=== PATIENT | male | born 1955 | race Caucasian/White ===

== ENCOUNTER 2023-05-30 10:23 | Inpatient (IN) | payer MEDICARE, SELFPAY ==
--- NOTE | ~2023-05-30 | XR_ITS ---
EXAMINATION: XR CHEST CLINICAL INFORMATION: Chest pain COMPARISON: 10/14/2012, report only. TECHNIQUE: Frontal view of the chest was obtained. FINDINGS: No significant abnormality is noted involving the heart, lungs, mediastinum or soft tissues. There is been resection of the distal right clavicle. Old healed fracture left mid clavicle. Degenerative changes are present in the right shoulder. Median sternotomy and clips from a CABG are present. ACDF hardware noted in the lower cervical spine with surgical clips in the left neck. XR/XR chest 1V IMPRESSION: No acute intrathoracic disease. Incidental findings as described above.
--- NOTE | ~2023-05-30 | CT_ITS ---
EXAMINATION: CT ANGIOGRAM OF THE CHEST WITH AND WITHOUT CONTRAST (CT PULMONARY ANGIOGRAM FOR PE) CLINICAL INFORMATION: Reason for Exam elevated ddimer pleuritic chest pain COMPARISON: Chest radiograph earlier today TECHNIQUE: Prior to contrast administration, noncontrast localization images were obtained. Subsequently, multidetector volumetric imaging was performed from the thoracic inlet to below the diaphragms following the administration of 65 mL Omnipaque 350 intravenous contrast. No contrast reaction reported Sagittal, coronal, and MIP oblique sagittal reformatted images were obtained on the CT workstation, uploaded to PACS, and reviewed. This CT examination was performed using dose optimization techniques as appropriate, variously including the following: *Automated exposure control *Adjustment of mA and/or kV according to patient size (this includes techniques or standardized protocols for targeted exams where dose is matched to indication/reason for exam; i.e. extremities or head) *Use of iterative reconstruction technique Total exam dose-length product 354 mGy-cm FINDINGS: QUALITY OF STUDY/CONTRAST BOLUS: Satisfactory. PULMONARY ARTERIES: No pulmonary emboli. THORACIC AORTA: No aneurysm. LUNG: There is marked peribronchial thickening present most prominent at the lung bases (for example see right lung base 7:283-336). No focal consolidation with air bronchograms, concerning nodules or masses. 2 and 3 mm lung nodules are present right middle lobe (7:242 and 255). Mild dependent groundglass changes are seen in both lungs. PLEURA: No pleural effusion or pneumothorax. MEDIASTINUM: Normal heart size. That is post median sternotomy and CABG. No pericardial effusion. No hilar or mediastinal lymphadenopathy. No evidence of septal bowing or right heart strain. CORONARY ARTERY CALCIFICATION: Extensive CHEST WALL/AXILLA: No axillary or internal mammary lymphadenopathy. OSSEOUS STRUCTURES: No acute or suspicious osseous abnormality. UPPER ABDOMEN: Unremarkable. No reflux of contrast into the hepatic veins to suggest elevated right heart pressures. CT/CT angio chest PE protocol IMPRESSION: 1. No evidence of pulmonary emboli. 2. Marked peribronchial thickening most prominent at the lung bases. 3. 2 and 3 mm lung nodules right middle lobe. No follow-up needed. VTE: negative. According to the UPDATED 2017 Fleischner Society recommendations, the advised follow-up imaging for solid nodules <6 mm in the middle/lower lobes is no routine follow up.
--- NOTE | 2023-05-30 10:30 | ECG_ITS ---
Test Reason : CHEST PAIN Blood Pressure : / mmHG Vent. Rate : 049 BPM Atrial Rate : 049 BPM P-R Int : 166 ms QRS Dur : 098 ms QT Int : 484 ms P-R-T Axes : 043 031 039 degrees QTc Int : 437 ms Sinus bradycardia Cannot rule out Anterior infarct , age undetermined Abnormal ECG When compared with ECG of 25-MAY-2013 13:24, Vent. rate has decreased BY 25 BPM Nonspecific T wave abnormality has replaced inverted T waves in Inferior leads Referred By: Nola Gar Electronically Signed By:BRISSA TREVIÑO
[2023-05-30 10:31] VITALS: BP 156/92; PULSE 58; O2SAT 98
--- NOTE | 2023-05-30 10:53 | ED.PSYCH ---
HPI - Psych General Chief Complaint: Chest Pain Stated Complaint: CP ETOH WITHDRAWAL Time Seen by Provider: 05/30/23 10:30 Source: patient, EMS and old records reviewed Mode of arrival: EMS Limitations: other (poor vague historian) History of Present Illness HPI Narrative: 67 yo male with PMH Of CAD s/p 4VCABG, valve replacement 4 months ago in [place], ETOH abuse last withdrawal seizure 2 years ago last drink yesterday, depression and prior SI attempts. States he just came here 1 week ago from [place] to see petr he has not seen in 14 years. He now has chest pain starting 1 hour ago sharp central and feels anxiety and ETOH withdrawal. He has not taken his medications in 1 week since he ran out but then states he overdosed on clonidine and buspirone unknown amounts 2 days ago which doesn't make sense if he ran out. He states he has ETOH withdrawal and SI. He has pain in his lung because he has a lung nodule and is scared of lung cancer. MD complaint: suicidal ideation, feels depressed, anxiety, alcohol abuse and other (chest pain) Onset (ago): day(s) (2 days for mental health but then chest pain x 1 hour) Duration: constant History of same: Yes Relieving factors: none Exacerbating factors: other Context: recent alcohol abuse and significant life stressor Associated psychiatric symptoms: depression and suicidal ideation Associated symptoms: denies other symptoms If self harm: admits thoughts of self harm, has plan, has acted on plan and intentional overdose Related Data Allergies Allergy/AdvReac Type Severity Reaction Status Date / Time No Known Allergies Allergy Verified 05/30/23 11:36 Review of Systems Review of Systems: Constitutional : No Weight loss, No Fever, No Chills ENT/Mouth : No sore throat, No Rhinorrhea Eyes: No Eye Pain, No Swelling Cardiovascular : pos Chest Pain, no SOB, no Dyspnea on Exertion, No Orthopnea, No Edema, No Palpitations Respiratory : No Cough, No Sputum Gastrointestinal : no Nausea, No Vomiting, No Diarrhea, No abdominal Pain, No Hematochezia, No Melena Genitourinary : No Dysuria, No Urinary Frequency Musculoskeletal : No joint pain, No Myalgias, No Joint Swelling Skin : No Skin Lesions, No rash Neuro : No Weakness, No Numbness, No Dizziness, No Headache Psych : pos Anxiety/Panic, pos Depression, pos SI Heme/Lymph: No Bruising, No Lymphadenopathy Endocrine : No Polyuria, No Polydipsia All other systems reviewed and are negative [facility], [facility] Past Medical History Attestation statement: The following information was validated with the patient. Medical History (Updated 05/30/23 @ 15:20 by Nola Gar DO) Depression CAD (coronary artery disease) Surgical History (Updated 05/30/23 @ 11:13 by Nola Gar DO) Heart valve replaced S/P CABG x 4 Social History Social History (Updated 05/30/23 @ 11:13 by Nola Gar DO) Alcohol intake: current Alcohol type: hard liquor Patient Tobacco Use Status: Current everyday Tobacco user Smoked in Last 30 Days: Yes Use of substances other than those prescribed or required for medical reasons: Yes Substance Use Type: Marijuana Advance Directives: No Advance Directives Information Provided: No Physical Exam Vital Signs: Vital Signs: Last Vital Signs Temp 98.3 F 05/30/23 15:11 Pulse 59 05/30/23 15:11 Resp 16 05/30/23 15:11 BP 116/59 L 05/30/23 15:11 Pulse Ox 92 05/30/23 15:11 O2 Del Method Room Air 05/30/23 15:11 BMI result Body Mass Index 27.4 Appearance: Alert. Oriented X3. No acute distress. Eyes: Pupils equal, round and reactive to light. ENT: Pharynx normal. tongue fasciculations noted Neck: Normal inspection. Neck supple. CVS: Normal heart rate and rhythm. Pulses normal. Respiratory: No respiratory distress. Breath sounds normal. Abdomen: Soft and nontender. Skin: Skin warm and dry. Normal skin color. Normal skin turgor. Extremities: No lower extremity edema. No calf ttp Neuro: Oriented X 3. No motor deficit. No sensory deficit. Cn2-12 intact. tremors of both hands noted Course Course Course Narrative: per outside records had CABGx 3, bioprosthetic AVR - december 2022 had extensive substance abuse and ETOH history exhibiting no signs of withdrawal. Medications Administered Discontinued Medications Generic Name Dose Route Start Last Admin Trade Name Freq PRN Reason Stop Dose Admin Al Hydroxide/Mg Hydroxide 15 ml 05/30/23 12:12 05/30/23 12:30 Magnesium Hydrox/Alum Hydrox 30 Ml Oral.Susp PO 05/30/23 12:13 15 ml ONCE ONE Administration Guaifenesin 5 ml 05/30/23 14:05 05/30/23 14:32 Guaifenesin 100 Mg/5 Ml Liquid PO 05/30/23 14:06 5 ml ONCE ONE Administration Magnesium Sulfate 2 gm in 50 mls @ 25 mls/hr 05/30/23 10:47 05/30/23 13:48 Magnesium Sulfate/H2o IV 05/30/23 12:46 Infused ONCE ONE Infusion Thiamine HCl 200 mg/ Sodium 102 mls @ 204 mls/hr 05/30/23 10:47 05/30/23 13:47 Chloride IV 05/30/23 11:16 Infused ONCE ONE Infusion Iohexol 100 ml 05/30/23 12:38 05/30/23 12:39 Iohexol 350 Mg/Ml 100 Ml Infus..Btl IV 05/30/23 12:39 65 ml ONCE ONE Administration Lidocaine HCl 15 ml 05/30/23 12:12 05/30/23 12:30 Lidocaine Hcl Viscous 2 % 15 Ml Solution MUCOUS MEM 05/30/23 12:13 15 ml ONCE ONE Administration Phenobarbital Sodium 246 mg 05/30/23 12:00 05/30/23 11:58 Phenobarbital Sodium 130 Mg/Ml Im Once IM 05/30/23 12:01 246 mg ONCE ONE Administration Protocol Phenobarbital Sodium 185 mg 05/30/23 15:00 05/30/23 14:33 Phenobarbital Sodium 65 Mg/Ml Vial Q3hx2 IM 05/30/23 18:01 185 mg Q3H [place] Administration Protocol Medical Decision Making Medical Decision Making MDM Narrative: 67 yo male with PMH of CAD s/p CABG, anxiety, depression with prior SI attempts, ETOH abuse last drink yesterday he has multiple complaints that are convoluted and don't necessarily make sense - he states he ran out of meds a week ago but overdosed on clonidine and buspirone 2 days ago - given 48 hours and normal VS and normal qtc / qrs on EKG will defer further workup of that. He c/o sharp chest pain - troponin x 2, ddimer, CXR ordered. He also is exhibiting ETOH wtihdrawal symtoms - I have ordered magnesium, thiamine, phenobarb protocol he had a withdrawal seizure 2 years ago he reports current SI - we are trying to contact the [facility] in [place] where he had his care Differential Diagnosis Differential Diagnoses: The differential diagnosis associated with the presentation includes chest pain, VTE, ETOH withdrawal, gastritis, pancreatitis Admission/Observation Consideration of admission/observation: Escalation of care including admission/observation considered physician observation at 317pm until he sees CARE team put on phenobarb taper two trop flat CTA negative Consult Healthcare Provider Management of the patient was discussed with: Behavioral Health Provider Lab Data [facility] Lab Attestation statement: I reviewed the patient's lab results. 05/30/23 11:29 05/30/23 11:29 Labs: Lab Results 05/30/23 05/30/23 05/30/23 Range/Units 11:29 13:10 14:38 WBC 9.0 (4.8-10.8) X10*3/uL RBC 4.96 (4.60-5.80) X10*6/uL Hgb 14.2 (14.0-18.0) g/dl Hct 42.0 (42.0-52.0) % MCV 84.7 (80.0-98.0) fL MCH 28.6 (27.0-33.0) pg MCHC 33.8 (31.0-36.0) g/dl RDW 15.5 (11.0-16.0) % Plt Count 233 (160-400) X10*3/uL MPV 9.2 L (9.4-12.4) fL Immature Gran % (Auto) 0.2 (0.0-0.4) % Neut % (Auto) 72.1 (45-73) % Lymph % (Auto) 18.8 L (20-40) % [place] % (Auto) 6.0 (2-11) % Eos % (Auto) 2.6 (0-4) % Baso % (Auto) 0.3 (0-2) % Lymph # (Auto) 1.7 (1.2-4.9) X10*3/uL [place] # (Auto) 0.5 (0.1-1.2) X10*3/uL Eos # (Auto) 0.2 (0.0-0.4) X10*3/uL Baso # (Auto) 0.0 (0.0-0.2) X10*3/uL Abs Immat Gran (auto) 0.02 (0.00-0.03) X10*3/uL Absolute Neuts (auto) 6.5 (2.0-8.3) x10*3/uL Absolute Nucleated RBC 0.000 (0.0-0.012) X10*3/uL Nucleated RBC % (auto) 0.0 (0.0-0.2) /100WBC D-Dimer High Sensitivty 489 NG/ML Sodium 138 (135-145) mmol/L Potassium 3.8 (3.3-5.1) mmol/L Chloride 103 (96-108) mmol/L Carbon Dioxide 24 (22-29) mmol/L Anion Gap 15 (12-20) BUN 15 (9-16) mg/dL Creatinine 0.83 (0.5-1.4) mg/dL Estim Creat Clear Calc 82.7 Estimated GFR > 60 Random Glucose 95 (60-115) mg/dL Calcium 9.3 (8.4-10.2) mg/dL Magnesium 1.9 (1.6-2.6) mg/dL Total Bilirubin 0.9 (0.0-1.0) mg/dL Direct Bilirubin 0.3 (0.0-0.5) mg/dL AST 42 H (5-37) U/L ALT 33 (0-40) U/L Alkaline Phosphatase 74 (39-117) U/L Troponin I High Sens 6.3 5.1 (<3.5-35.0) ng/L B-Natriuretic Peptide 271 H (<100) pg/mL Total Protein 7.2 (6.5-8.0) g/dL Albumin 3.9 (3.5-5.0) g/dL Lipase 26 (8-78) U/L Salicylates < 5.0 L (15-30) mg/dL Urine Opiates Screen Not Detected (Not Detect) Urine Fentanyl Screen Not Detected (Not Detect) Acetaminophen < 3 (<30) mcg/mL Ur Barbiturates Screen POSITIVE H (Not Detect) Ur Phencyclidine Scrn Not Detected (Not Detect) Ur Amphetamines Screen Not Detected (Not Detect) U Benzodiazepines Scrn Not Detected (Not Detect) Urine Cocaine Screen Not Detected (Not Detect) U Marijuana (THC) Screen POSITIVE H (Not Detect) Ethyl Alcohol < 10 mg/dL Influenza Type A (PCR) NEGATIVE (Negative) Influenza Type B (PCR) NEGATIVE (Negative) RSV RNA Qual (PCR) NEGATIVE (Negative) SARS-CoV-2 RNA (RT-PCR) NEGATIVE (Negative) Independent Interpretation I performed an independent interpretation of an: EKG, Plain X-Ray and CT Scan (no PE) Interpretation: Rate: 49 Rhythm: sinus bradycardia [place]: normal Normal P waves. Normal CLIVE. Normal QRS complex. ST T wave : normal no [place] qTC: 437 prior studies: no acute ischemia The study has been interpreted contemporaneously by me. . Radiology Impression Discussion of test interpretation with radiology: I have reviewed the radiologist's reading. Independent Historian Clinical information obtained from an independent historian. History obtained from or confirmed by: EMS External Record Review External record reviewed: Outpatient record Critical Care Time Critical Care Time Critical Care Time: Yes Total Critical Care Time: 60 Attestation: phenobarb protocol, repeat labs, outpatient review of labs I attest to this time spent taking care of the patient Discharge Plan Discharge Clinical Impression: Atypical chest pain, Alcohol use disorder, Suicidal ideation Patient Disposition: Still a Patient
[2023-05-30 11:22] VITALS: BP 134/76; PULSE 50; RESP 14; TEMP 36.4; O2SAT 95; BMI 27.4
[2023-05-30 11:29] VITALS: BP 134/76; PULSE 46; PULSE 47; RESP 16; TEMP 37.2; O2SAT 95
[2023-05-30 11:32] LABS: MANUAL DIFF FLAG NO
[2023-05-30 11:38] LABS: Basophils Percent Auto 0.3 % (0-2); Eosinophils Absolute Auto 0.2 X10*3/uL (0.0-0.4); Eosinophils Percent Auto 2.6 % (0-4); Hemoglobin 14.2 g/dl (14.0-18.0); Imm Gran Abs Auto 0.02 X10*3/uL (0.00-0.03); Imm Gran Pct Auto 0.2 % (0.0-0.4); Lymphocytes Absolute Auto 1.7 X10*3/uL (1.2-4.9); Lymphocytes Percent Auto 18.8 % (20-40); Mean Corpuscular HGB Conc 33.8 g/dl (31.0-36.0); Mean Corpuscular Hemoglobin 28.6 pg (27.0-33.0); Mean Corpuscular Volume 84.7 fL (80.0-98.0); Mean Platelet Volume 9.2 fL (9.4-12.4); Monocytes Absolute Auto 0.5 X10*3/uL (0.1-1.2); Neutrophils Absolute Auto 6.5 x10*3/uL (2.0-8.3); Neutrophils Percent Auto 72.1 % (45-73); Platelet Count 233 X10*3/uL (160-400); Red Blood Count 4.96 X10*6/uL (4.60-5.80); Red Cell Distribution Width 15.5 % (11.0-16.0)
[2023-05-30 11:43] LABS: D Dimer High Sensitivity 489 NG/ML
--- NOTE | 2023-05-30 11:45 | PC.NURSE ---
Pt coming from [facility] in [place] via EMS. Pt reports CP, substernal area, 09/20, sharp and constant since this morning. Pt also reports daily alcohol use, vodka, has had withdrawals in the past, denies any seizures. Pt reports sore throat and general malaise for past couple of days as well. Pt reports 2 days ago he had SI attempt, took whole bottle of BP and anti-anxiety meds and it did not work, per pt. Pt does feel SI, denies HI. 1:1 sitter at this time. Pt reports 4 months ago he had quadruple bypass and valve replacement in [place] and was also told he had a nodule on lung. Pt is alert and oriented, breathing even and unlabored, skin slightly clammy. 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 IV in place from EMS, 20G in left hand, flushes with no issues.
[2023-05-30 11:55] LABS: Acetaminophen LAB < 3 mcg/mL (<30); Alanine Aminotransferase 33 U/L (0-40); Albumin Level 3.9 g/dL (3.5-5.0); Alkaline Phosphatase 74 U/L (39-117); Anion Gap 15 (12-20); Aspartate Amino Transferase 42 U/L (5-37); B Type Natriuretic Peptide 271 pg/mL (<100); Bilirubin Direct 0.3 mg/dL (0.0-0.5); Bilirubin Total 0.9 mg/dL (0.0-1.0); Blood Urea Nitrogen 15 mg/dL (9-16); Calcium 9.3 mg/dL (8.4-10.2); Carbon Dioxide 24 mmol/L (22-29); Chloride 103 mmol/L (96-108); Creatinine Clr Calc Pharmacy 82.7; Estimated Glomerular Filt Rate > 60; Ethanol < 10 mg/dL; Glucose Random 95 mg/dL (60-115); Lipase 26 U/L (8-78); Magnesium 1.9 mg/dL (1.6-2.6); Potassium 3.8 mmol/L (3.3-5.1); Salicylate < 5.0 mg/dL (15-30); Sodium 138 mmol/L (135-145); Total Protein 7.2 g/dL (6.5-8.0); Troponin-I High Sensitivity 6.3 ng/L (<3.5-35.0)
[2023-05-30] MEDS: PHENobarbitaL sodium 130 MG/ML IM ONCE 246 MG IM (11:58)
[2023-05-30] MEDS: Magnesium Sulfate/H2O 2 GM/50 ML PIGGYBACK IV (11:59)
[2023-05-30] MEDS: Thiamine HCL 200 MG in 0.9 % Sodium Chloride 100 ML 204 MG IV (12:07)
[2023-05-30 12:13] LABS: Influenza A PCR NEGATIVE (Negative); Influenza B PCR NEGATIVE (Negative); Resp Syncy Virus RNA Qual PCR NEGATIVE (Negative); SARS COV2 PCR INHOUSE NEGATIVE (Negative)
[2023-05-30] MEDS: Magnesium Hydrox/Alum Hydrox 30 ML ORAL.SUSP 15 ML PO (12:30)
[2023-05-30] MEDS: Lidocaine HCl Viscous 2 % 15 ML SOLUTION MUCOUS MEM (12:30)
--- NOTE | 2023-05-30 12:33 | PC.NURSE ---
pt medicated per MAR
[2023-05-30] MEDS: iohexoL 350 MG/ML 100 ML INFUS..BTL IV (12:39)
[2023-05-30 13:34] LABS: Amphetamine Screen Urine Not Detected (Not Detect); Barbiturates, Urine POSITIVE (Not Detect); Benzodiazepines Screen Urine Not Detected (Not Detect); Cannabinoid Screen Urine POSITIVE (Not Detect); Cocaine Screen Urine Not Detected (Not Detect); Fentanyl, urine Not Detected (Not Detect); Opiate Screen Urine Not Detected (Not Detect); Phencyclidine Screen Urine Not Detected (Not Detect)
[2023-05-30 14:00] VITALS: BP 128/53; PULSE 50; RESP 15; TEMP 36.7; O2SAT 95
[2023-05-30] MEDS: guaiFENesin 100 MG/5 ML LIQUID PO (14:32)
[2023-05-30] MEDS: PHENobarbitaL sodium 65 MG/ML VIAL Q3Hx2 185 MG IM (14:33)
[2023-05-30 15:10] LABS: Troponin-I High Sensitivity 5.1 ng/L (<3.5-35.0)
[2023-05-30 15:11] VITALS: BP 116/59; PULSE 59; RESP 16; TEMP 36.8; O2SAT 92
[2023-05-30 17:43] LABS: IDNOW Serial# 08D9AD1C; Strep A Nucleic Acid Negative (Negative)
--- NOTE | 2023-05-30 19:50 | PC.NURSE ---
patient appears to remain at rest at present, respirations are even and unlabored patient appears in no distress, periodically lets wants be known.
--- NOTE | 2023-05-30 20:06 | MHC.CARE ---
Pt is being held on a section 12 for safety and containment while he is a dual dx bed search.
[2023-05-30] MEDS: PHENobarbitaL 15 MG TABLET 45 MG PO (20:17)
--- NOTE | 2023-05-30 20:31 | PC.NURSE ---
patient back and forth to rest room, able to make needs known, given hs meds, seems to present with mild confusion. patient maintains safe behavior.
[2023-05-30 21:00] VITALS: BP 106/51; PULSE 59; RESP 18; TEMP 36.9; O2SAT 97
[2023-05-30] MEDS: Acetaminophen 325 MG TABLET 650 MG PO (21:04)
[2023-05-31 02:30] VITALS: BP 163/63; PULSE 52; RESP 17; TEMP 36.4; O2SAT 98
--- NOTE | 2023-05-31 07:17 | PC.NURSE ---
Assumed care of patient at 0700, patient appears to be sleeping, respirations even and unlabored, no apparent distress. Continue plan of care for Sec 12 dual diagnosis bedsearch
[2023-05-31] MEDS: PHENobarbitaL 15 MG TABLET 45 MG PO ×2 (08:38→21:28)
--- NOTE | 2023-05-31 11:22 | PC.NURSE ---
updated MD Susy KYLE
[2023-05-31 16:25] VITALS: BMI 26.9
[2023-05-31 17:20] VITALS: BP 136/75; PULSE 77; RESP 18
[2023-05-31] MEDS: FLUoxetine HCl 20 MG CAPSULE 40 MG PO (17:51)
[2023-05-31] MEDS: Atorvastatin Calcium 40 MG TABLET PO (17:51)
[2023-05-31] MEDS: Naltrexone HCl 50 MG TABLET PO (17:51)
[2023-05-31] MEDS: Aspirin Enteric Coated 81 MG TABLET.DR PO (17:51)
--- NOTE | 2023-05-31 18:21 | PC.ADMIT ---
Nursing note: 67 year old male DX: Unspecified depressive disorder, Alcohol Use disorder. Referred for admission by CARE team. Signed conditional voluntary for admission. Patient called 911 due to experiencing withdrawal symptoms and feeling suicidal. Reported to EMS 2 days prior he ingested unknown amount of BP medications and anti anxiety medication in suicide attempt. Patient easily engaged, presents with good eye contact. A+O x4. Calm and cooperative with admission process. Reports mood continues depressed and anxious. Currently denies SI/HI plan or intent. Thoughts clear, linear and organized. Speech normal rate, tone, ruthie. Denies perceptual disturbances, no overt psychosis or expressed delusions. Reports difficulty with sleep, difficulty falling and maintaining sleep. Denies appetite disturbances. Skin check completed with ancillary staff DP. Reports long history of alcohol use, 50 years , drinking a fifth of vodka a day. Last use prior to admission. TOX screen positive for barbiturate, cannabis. COVID negative. Medical history includes CAD, 4VCABG, hx of gastritis, pancreatitis. Patient oriented to unit, placed on unit safety checks. CIWA q 2 hours. See nursing assessment/crisis eval for complete details.
[2023-05-31 19:50] VITALS: BP 146/57; PULSE 75; RESP 16; TEMP 36.7; O2SAT 98
[2023-05-31] MEDS: Metoprolol Tartrate 25 MG TABLET PO (21:26)
[2023-05-31] MEDS: busPIRone HCl 10 MG TABLET PO (21:26)
[2023-05-31] MEDS: Acetaminophen 325 MG TABLET 650 MG PO (21:27)
[2023-05-31] MEDS: QUEtiapine Fumarate 50 MG TABLET PO (21:29)
[2023-05-31] MEDS: Celecoxib 100 MG CAPSULE PO (21:30)
[2023-06-01 07:49] VITALS: BP 155/70; PULSE 54; RESP 14; TEMP 36.5; O2SAT 96
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
[2023-06-01 09:01] LABS: Estimated Average Glucose 123 mg/dL; Hemoglobin A1c % 5.9 % (<6.0)
[2023-06-01 09:14] LABS: Alanine Aminotransferase 29 U/L (0-40); Albumin Level 3.8 g/dL (3.5-5.0); Alkaline Phosphatase 70 U/L (39-117); Anion Gap 13 (12-20); Aspartate Amino Transferase 32 U/L (5-37); Bilirubin Total 0.4 mg/dL (0.0-1.0); Blood Urea Nitrogen 14 mg/dL (9-16); Calcium 9.1 mg/dL (8.4-10.2); Carbon Dioxide 28 mmol/L (22-29); Chloride 101 mmol/L (96-108); Cholesterol 164 mg/dL (<200); Creatinine Clr Calc Pharmacy 86.5; Estimated Glomerular Filt Rate > 60; Glucose Fasting 98 mg/dL (60-99); HDL Cholesterol 53 mg/dL (>40); LDL Cholesterol Calculated 94 mg/dL (<100); Potassium 4.9 mmol/L (3.3-5.1); Sodium 137 mmol/L (135-145); Total Protein 6.7 g/dL (6.5-8.0); Triglycerides 86 mg/dL (<150)
[2023-06-01] MEDS: Nicotine 7 MG PATCH.TD24 TRANSDERMA (09:25)
[2023-06-01] MEDS: PHENobarbitaL 15 MG TABLET 45 MG PO (09:25)
[2023-06-01] MEDS: Atorvastatin Calcium 40 MG TABLET PO (09:26)
[2023-06-01] MEDS: FLUoxetine HCl 20 MG CAPSULE 40 MG PO (09:26)
[2023-06-01] MEDS: Aspirin Enteric Coated 81 MG TABLET.DR PO (09:26)
[2023-06-01] MEDS: busPIRone HCl 10 MG TABLET PO ×3 (09:26→21:00)
[2023-06-01] MEDS: Naltrexone HCl 50 MG TABLET PO (09:26)
[2023-06-01] MEDS: Celecoxib 100 MG CAPSULE PO ×2 (09:26→21:00)
[2023-06-01] MEDS: Metoprolol Tartrate 25 MG TABLET PO ×2 (09:26→21:00)
[2023-06-01 09:30] LABS: Free T4 (Free Thyroxine) 0.93 ng/dL (0.71-1.85); Thyroid Stimulating Hormone 1.76 uIU/mL (0.32-4.0)
[2023-06-01 09:40] LABS: Vitamin B12 549 pg/mL (200-900)
[2023-06-01] MEDS: Magnesium Hydrox/Alum Hydrox 30 ML ORAL.SUSP PO (18:45)
[2023-06-01 19:45] VITALS: BP 126/69; PULSE 67; RESP 16; TEMP 36.3; O2SAT 96
[2023-06-01] MEDS: PHENobarbitaL 15 MG TABLET PO (21:00)
[2023-06-01] MEDS: QUEtiapine Fumarate 50 MG TABLET PO (21:00)
[2023-06-01] MEDS: Acetaminophen 325 MG TABLET 650 MG PO (21:13)
[2023-06-02 07:00] VITALS: BMI 28.0
[2023-06-02 07:20] VITALS: BP 142/75; PULSE 49; RESP 18; TEMP 36.7; O2SAT 96
[2023-06-02] MEDS: Naltrexone HCl 50 MG TABLET PO (08:55)
[2023-06-02] MEDS: FLUoxetine HCl 20 MG CAPSULE 40 MG PO (08:55)
[2023-06-02] MEDS: Celecoxib 100 MG CAPSULE PO ×2 (08:55→21:07)
[2023-06-02] MEDS: Atorvastatin Calcium 40 MG TABLET PO (08:55)
[2023-06-02] MEDS: Metoprolol Tartrate 25 MG TABLET PO ×2 (08:56→21:07)
[2023-06-02] MEDS: Aspirin Enteric Coated 81 MG TABLET.DR PO (08:56)
[2023-06-02] MEDS: Nicotine 7 MG PATCH.TD24 TRANSDERMA (08:56)
[2023-06-02] MEDS: busPIRone HCl 10 MG TABLET PO ×3 (08:56→21:07)
[2023-06-02] MEDS: PHENobarbitaL 15 MG TABLET PO ×2 (08:56→21:07)
--- NOTE | 2023-06-02 10:04 | HO.PSYCHPN ---
Subjective Subjective Date of Service: 06/02/23 Reason For Visit: si / etoh Subjective Notes: Conditional Voluntary Interim History: Patient describes history of depression status post recent suicide attempt history of multiple losses Patient was feeling hopeless helpless prior to admission he does state he is eager for sobriety has started naltrexone Mental Status Exam Mental Status Exam Patient Appearance: Well Grooomed Patient Orientation: Person, Place, Time and Situation Level of Consciousness: Awake and Appropriate Patient Behavior: Appropriate and Cooperative Mood Description: Depressed and Blunted Affect Description: Appropriate and Constricted Patient Cognition Impaired: No Ability to Follow Directions: Good Speech Pattern: Clear Memory Description: Intact Hallucinations: None Delusions: Not Present Thought Process: Intact and Goal Oriented Thought Content: positive for Goal Oriented, positive for Preoccupation, negative for Suicidal Ideation or negative for Homicidal Ideation Depressive Symptoms: Increased Anxiety, Increased Irritability, Hopelessness, Increased Fatigue, Loss of Energy and Difficulty Concentrating Judgement: Good Diagnostics Vital Signs (24Hr): Vital Signs - 24 hr 06/01/23 19:45 06/02/23 07:20 Temperature 97.3 F 98.0 F Pulse Rate 67 49 L Respiratory Rate 16 18 Blood Pressure 126/69 142/75 H Pulse Oximetry 96 96 Oxygen Delivery Method Room Air Room Air BMI result Body Mass Index 26.9 Labs 05/30/23 11:29 06/01/23 08:28 Labs: Laboratory Results - last 48 hr 06/01/23 08:28 Sodium 137 Potassium 4.9 D Chloride 101 Carbon Dioxide 28 Anion Gap 13 BUN 14 Creatinine 0.73 Estim Creat Clear Calc 86.5 Estimated GFR > 60 Fasting Glucose 98 Estimat Average Glucose 123 Hemoglobin A1c % 5.9 Calcium 9.1 Total Bilirubin 0.4 AST 32 ALT 29 Alkaline Phosphatase 70 Total Protein 6.7 Albumin 3.8 Triglycerides 86 Cholesterol 164 LDL Cholesterol, Calc 94 HDL Cholesterol 53 Vitamin B12 549 Folate 10.0 TSH 1.76 Free T4 0.93 Imaging Radiology Impressions: ITS Impressions Chest X-Ray 05/30/23 11:42 IMPRESSION: No acute intrathoracic disease. Incidental findings as described above. Chest CTA 05/30/23 12:37 IMPRESSION: 1. No evidence of pulmonary emboli. 2. Marked peribronchial thickening most prominent at the lung bases. 3. 2 and 3 mm lung nodules right middle lobe. No follow-up needed. VTE: negative. According to the UPDATED 2017 Fleischner Society recommendations, the advised follow-up imaging for solid nodules <6 mm in the middle/lower lobes is no routine follow up. Medications Medications Current Medications Acetaminophen (Acetaminophen 325 Mg Tablet) 650 mg PO Q6H PRN PRN Reason: Headache/Pain Mild Scale (1-3) Last Admin: 06/01/23 21:13 Dose: 650 mg Al Hydroxide/Mg Hydroxide (Magnesium Hydrox/Alum Hydrox 30 Ml Oral.Susp) 30 ml PO Q6H PRN PRN Reason: Heartburn/Nausea Last Admin: 06/01/23 18:45 Dose: 30 ml Aspirin (Aspirin Enteric Coated 81 Mg Tablet.Dr) 81 mg PO DAILY [facility] Last Admin: 06/02/23 08:56 Dose: 81 mg Atorvastatin Calcium (Atorvastatin Calcium 40 Mg Tablet) 40 mg PO DAILY [facility] Last Admin: 06/02/23 08:55 Dose: 40 mg Buspirone HCl (Buspirone Hcl 10 Mg Tablet) 10 mg PO TID [facility] Last Admin: 06/02/23 08:56 Dose: 10 mg Celecoxib (Celecoxib 100 Mg Capsule) 100 mg PO BID [facility] Last Admin: 06/02/23 08:55 Dose: 100 mg Clonidine HCl (Clonidine Hcl 0.1 Mg Tablet) 0.1 mg PO DAILY PRN; Protocol PRN Reason: Anxiety Fluoxetine HCl (Fluoxetine Hcl 20 Mg Capsule) 40 mg PO DAILY [facility] Last Admin: 06/02/23 08:55 Dose: 40 mg Hydroxyzine HCl (Hydroxyzine Hcl 25 Mg Tablet) 25 mg PO Q6H PRN PRN Reason: Anxiety Magnesium Hydroxide (Milk Of Magnesia 30 Ml Oral.Susp) 30 ml PO DAILY PRN PRN Reason: Constipation Melatonin (Melatonin 3 Mg Tablet) 9 mg PO BEDTIME PRN PRN Reason: Insomnia Metoprolol Tartrate (Metoprolol Tartrate 25 Mg Tablet) 25 mg PO BID [facility]; Protocol Last Admin: 06/02/23 08:56 Dose: 25 mg Naltrexone HCl (Naltrexone Hcl 50 Mg Tablet) 50 mg PO DAILY [facility] Last Admin: 06/02/23 08:55 Dose: 50 mg Nicotine (Nicotine 7 Mg Patch.Td24) 7 mg TRANSDERMA DAILY [facility] Last Admin: 06/02/23 08:56 Dose: 7 mg Nicotine Polacrilex (Nicotine Polacrilex 2 Mg Gum) 4 mg BUCCAL Q2H PRN PRN Reason: Nicotine Cravings Phenobarbital (Phenobarbital 15 Mg Tablet) 15 mg PO BID [facility]; Protocol Stop: 06/03/23 09:01 Last Admin: 06/02/23 08:56 Dose: 15 mg Phenobarbital (Phenobarbital 15 Mg Tablet) 15 mg PO DAILY [facility]; Protocol Stop: 06/05/23 09:01 Quetiapine Fumarate (Quetiapine Fumarate 50 Mg Tablet) 50 mg PO BEDTIME [facility] Last Admin: 06/01/23 21:00 Dose: 50 mg Trazodone HCl (Trazodone Hcl 50 Mg Tablet) 50 mg PO BEDTIME MRX1 PRN PRN Reason: Insomnia Allergies Allergies Allergy/AdvReac Type Severity Reaction Status Date / Time No Known Allergies Allergy Verified 05/30/23 11:36 Assessment & Plan Assessment & Plan (1) Major depression, recurrent, chronic: Status: Acute Code(s): F33.9 - Major depressive disorder, recurrent, unspecified (2) Adjustment disorder: Status: Acute Code(s): F43.20 - Adjustment disorder, unspecified (3) Alcohol use disorder: Status: Acute Code(s): F10.90 - Alcohol use, unspecified, uncomplicated Plan continue phenobarb taper restart/continue usual outpt regimen refer for rehab 06/02/23 cont plan of care Reason for continued inpatient stay Substantial Risk for: harm to self, inability to function and rapid decompensation Time Spent With Patient Time: Total time managing care of this patient today ____ minutes.
--- NOTE | 2023-06-02 13:12 | MHC.RECOVRN ---
AUDIT-C Brief Intervention Pt had positive screen for unhealthy alcohol use on admission, subsequently met with t/w to discuss alcohol use and recovery supports/options. Pt voices concern regarding alcohol use and is aware that drinking at unhealthy levels is known to increase risk of alcohol related health problems. Pt reports 750 mL vodka daily x 10 days. Pt reports alcohol use off and on x 50 years. Longest period of recovery was 4 months while in longterm. Pt had recently been in a program in [place] where he was started on naltrexone. Pt reports he has not felt effects of the medication yet. Pt expresses how alcohol use has impacted health, including negative impact on mental health. Discussed risk reduction strategies including drinking below the recommended limit. Provided pt with written resources including information on inpatient and outpatient treatment, [facility], harm reduction, and recovery coaching. Pt educated on [facility] if he would like to continue naltrexone with our providers. Pt plans to continue inpatient [facility] treatment and is hopeful for CSS placement. Pt provided with t/w contact information if questions or concerns arise. Denies other questions or concerns at this time.
[2023-06-02] MEDS: Acetaminophen 325 MG TABLET 650 MG PO ×2 (15:04→21:06)
[2023-06-02 20:05] VITALS: BP 133/64; PULSE 64; RESP 16; TEMP 36.8; O2SAT 95
[2023-06-02] MEDS: QUEtiapine Fumarate 25 MG TABLET 75 MG PO (21:07)
[2023-06-03 06:00] VITALS: BP 117/66; PULSE 56; RESP 12; TEMP 36.5; O2SAT 97
[2023-06-03] MEDS: Nicotine 7 MG PATCH.TD24 TRANSDERMA (09:02)
[2023-06-03] MEDS: Metoprolol Tartrate 25 MG TABLET PO ×2 (09:03→20:40)
[2023-06-03] MEDS: FLUoxetine HCl 20 MG CAPSULE 40 MG PO (09:03)
[2023-06-03] MEDS: Celecoxib 100 MG CAPSULE PO ×2 (09:03→20:40)
[2023-06-03] MEDS: PHENobarbitaL 15 MG TABLET PO (09:03)
[2023-06-03] MEDS: Naltrexone HCl 50 MG TABLET PO (09:03)
[2023-06-03] MEDS: busPIRone HCl 10 MG TABLET PO (09:03)
[2023-06-03] MEDS: Aspirin Enteric Coated 81 MG TABLET.DR PO (09:03)
[2023-06-03] MEDS: Atorvastatin Calcium 40 MG TABLET PO (09:03)
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
[2023-06-03] MEDS: busPIRone HCl 5 MG TABLET 15 MG PO ×2 (15:47→20:40)
[2023-06-03] MEDS: Magnesium Hydrox/Alum Hydrox 30 ML ORAL.SUSP PO (15:50)
[2023-06-03 20:15] VITALS: BP 139/66; PULSE 64; RESP 16; TEMP 36.4; O2SAT 97
[2023-06-03] MEDS: QUEtiapine Fumarate 25 MG TABLET 75 MG PO (20:40)
[2023-06-03] MEDS: Acetaminophen 325 MG TABLET 650 MG PO (20:40)
--- NOTE | 2023-06-04 07:25 | HO.PSYCHPN ---
Subjective Subjective Date of Service: 06/04/23 Reason For Visit: si / etoh Subjective Notes: Conditional Voluntary Interim History: Reviewed with Dr. Dobson. Active on unit, social with peers. attending groups. pt reports feeling good but anxious today; pt stated, I'm anxious about trying to get [facility] and then going to a program . pt denies SI/HI/VH/AH. Medication Compliance: Yes Side effects from medications: No Attending Groups: Yes Review of Systems Constitutional: Reports as per HPI Eyes: Reports as per HPI Reports as per HPI Cardiovascular: Reports as per HPI Respiratory: Reports as per HPI Gastrointestinal: Reports as per HPI Genitourinary: Reports as per HPI Musculoskeletal: Reports as per HPI Skin/Breast: Reports as per HPI Reports as per HPI Psychiatric: Reports as per HPI Endocrine: Reports as per HPI Hematologic/Lymphatic: Reports as per HPI Allergic/Immunologic: Reports as per HPI Mental Status Exam Mental Status Exam Narrative: Pt is alert and oriented; behavior is cooperative, friendly and calm; dressed in casual attire; mood is described as good ; eye contact appropriate; Speech is normal rate, volume and prosody and not pressured; thought process is organized and goal directed; Thought content is on tx; denies SI/HI/VH/AH. Diagnostics Vital Signs (24Hr): Vital Signs - 24 hr 06/03/23 20:15 Temperature 97.6 F Pulse Rate 64 Respiratory Rate 16 Blood Pressure 139/66 Pulse Oximetry 97 Oxygen Delivery Method Room Air BMI result Body Mass Index 28.0 Labs 05/30/23 11:29 06/01/23 08:28 Imaging Radiology Impressions: ITS Impressions Chest X-Ray 05/30/23 11:42 IMPRESSION: No acute intrathoracic disease. Incidental findings as described above. Chest CTA 05/30/23 12:37 IMPRESSION: 1. No evidence of pulmonary emboli. 2. Marked peribronchial thickening most prominent at the lung bases. 3. 2 and 3 mm lung nodules right middle lobe. No follow-up needed. VTE: negative. According to the UPDATED 2017 Fleischner Society recommendations, the advised follow-up imaging for solid nodules <6 mm in the middle/lower lobes is no routine follow up. Medications Medications Current Medications Acetaminophen (Acetaminophen 325 Mg Tablet) 650 mg PO Q6H PRN PRN Reason: Headache/Pain Mild Scale (1-3) Last Admin: 06/03/23 20:40 Dose: 650 mg Al Hydroxide/Mg Hydroxide (Magnesium Hydrox/Alum Hydrox 30 Ml Oral.Susp) 30 ml PO Q6H PRN PRN Reason: Heartburn/Nausea Last Admin: 06/03/23 15:50 Dose: 30 ml Aspirin (Aspirin Enteric Coated 81 Mg Tablet.Dr) 81 mg PO DAILY [facility] Last Admin: 06/03/23 09:03 Dose: 81 mg Atorvastatin Calcium (Atorvastatin Calcium 40 Mg Tablet) 40 mg PO DAILY [facility] Last Admin: 06/03/23 09:03 Dose: 40 mg Buspirone HCl (Buspirone Hcl 5 Mg Tablet) 15 mg PO TID [facility] Last Admin: 06/03/23 20:40 Dose: 15 mg Celecoxib (Celecoxib 100 Mg Capsule) 100 mg PO BID [facility] Last Admin: 06/03/23 20:40 Dose: 100 mg Clonidine HCl (Clonidine Hcl 0.1 Mg Tablet) 0.1 mg PO DAILY PRN; Protocol PRN Reason: Anxiety Fluoxetine HCl (Fluoxetine Hcl 20 Mg Capsule) 40 mg PO DAILY [facility] Last Admin: 06/03/23 09:03 Dose: 40 mg Hydroxyzine HCl (Hydroxyzine Hcl 25 Mg Tablet) 25 mg PO Q6H PRN PRN Reason: Anxiety Magnesium Hydroxide (Milk Of Magnesia 30 Ml Oral.Susp) 30 ml PO DAILY PRN PRN Reason: Constipation Melatonin (Melatonin 3 Mg Tablet) 9 mg PO BEDTIME PRN PRN Reason: Insomnia Metoprolol Tartrate (Metoprolol Tartrate 25 Mg Tablet) 25 mg PO BID [facility]; Protocol Last Admin: 06/03/23 20:40 Dose: 25 mg Naltrexone HCl (Naltrexone Hcl 50 Mg Tablet) 50 mg PO DAILY [facility] Last Admin: 06/03/23 09:03 Dose: 50 mg Nicotine (Nicotine 7 Mg Patch.Td24) 7 mg TRANSDERMA DAILY [facility] Last Admin: 06/03/23 09:02 Dose: 7 mg Nicotine Polacrilex (Nicotine Polacrilex 2 Mg Gum) 4 mg BUCCAL Q2H PRN PRN Reason: Nicotine Cravings Phenobarbital (Phenobarbital 15 Mg Tablet) 15 mg PO DAILY [facility]; Protocol Stop: 06/05/23 09:01 Quetiapine Fumarate (Quetiapine Fumarate 25 Mg Tablet) 75 mg PO BEDTIME [facility] Last Admin: 06/03/23 20:40 Dose: 75 mg Trazodone HCl (Trazodone Hcl 50 Mg Tablet) 50 mg PO BEDTIME MRX1 PRN PRN Reason: Insomnia Allergies Allergies Allergy/AdvReac Type Severity Reaction Status Date / Time No Known Allergies Allergy Verified 05/30/23 11:36 Assessment & Plan Assessment & Plan (1) Major depression, recurrent, chronic: Status: Acute Code(s): F33.9 - Major depressive disorder, recurrent, unspecified (2) Adjustment disorder: Status: Acute Code(s): F43.20 - Adjustment disorder, unspecified (3) Alcohol use disorder: Status: Acute Code(s): F10.90 - Alcohol use, unspecified, uncomplicated Plan continue phenobarb taper restart/continue usual outpt regimen refer for rehab 06/02/23 cont plan of care 06/03/23 Detox is proceeding without complications. Pt reports an increase in anxiety, worry, depressive sx due to the unknown factor in his discharge planning and possibly needing to discharge to the street. He reports he will attempt suicide by running in front of a vehicle if discharged to the street. He is cooperative with [employer] application process and is wanting a program to re-establish his sobriety so he may return to his life and find a job. Plan: Increase Buspirone to 15 mg tid from 10 mg tid. [facility] bed search. 06/03: continue current tx plan. Patient educated on: medication risk/benefits Informed Consent: understands Reason for continued inpatient stay Substantial Risk for: med/psych decompensation Time Spent With Patient Time: Total time managing care of this patient today _20___ minutes.
[2023-06-04 08:05] VITALS: BP 155/72; PULSE 58; RESP 16; TEMP 36.7; O2SAT 94
[2023-06-04] MEDS: Atorvastatin Calcium 40 MG TABLET PO (09:06)
[2023-06-04] MEDS: Naltrexone HCl 50 MG TABLET PO (09:06)
[2023-06-04] MEDS: FLUoxetine HCl 20 MG CAPSULE 40 MG PO (09:06)
[2023-06-04] MEDS: Nicotine 7 MG PATCH.TD24 TRANSDERMA (09:07)
[2023-06-04] MEDS: Aspirin Enteric Coated 81 MG TABLET.DR PO (09:07)
[2023-06-04] MEDS: Metoprolol Tartrate 25 MG TABLET PO ×2 (09:07→20:35)
[2023-06-04] MEDS: PHENobarbitaL 15 MG TABLET PO (09:07)
[2023-06-04] MEDS: busPIRone HCl 5 MG TABLET 15 MG PO ×3 (09:07→20:35)
[2023-06-04] MEDS: Celecoxib 100 MG CAPSULE PO ×2 (09:07→20:35)
[2023-06-04 20:30] VITALS: BP 136/69; PULSE 63; RESP 18; TEMP 36.4; O2SAT 96
[2023-06-04] MEDS: QUEtiapine Fumarate 25 MG TABLET 75 MG PO (20:34)
[2023-06-04] MEDS: Acetaminophen 325 MG TABLET 650 MG PO (20:36)
[2023-06-05] MEDS: hydrOXYzine HCL 25 MG TABLET PO ×2 (00:57→20:56)
[2023-06-05 07:45] VITALS: BP 141/80; PULSE 66; RESP 14; TEMP 36.3; O2SAT 94
[2023-06-05 07:59] VITALS: BP 141/80; PULSE 66; RESP 20; TEMP 36.3; O2SAT 94
[2023-06-05] MEDS: Nicotine 7 MG PATCH.TD24 TRANSDERMA (09:08)
[2023-06-05] MEDS: Naltrexone HCl 50 MG TABLET PO (09:09)
[2023-06-05] MEDS: Celecoxib 100 MG CAPSULE PO ×2 (09:09→20:56)
[2023-06-05] MEDS: Metoprolol Tartrate 25 MG TABLET PO ×2 (09:09→20:55)
[2023-06-05] MEDS: FLUoxetine HCl 20 MG CAPSULE 40 MG PO (09:09)
[2023-06-05] MEDS: busPIRone HCl 5 MG TABLET 15 MG PO ×3 (09:09→20:55)
[2023-06-05] MEDS: Atorvastatin Calcium 40 MG TABLET PO (09:09)
[2023-06-05] MEDS: PHENobarbitaL 15 MG TABLET PO (09:10)
[2023-06-05] MEDS: Aspirin Enteric Coated 81 MG TABLET.DR PO (09:10)
--- NOTE | 2023-06-05 11:54 | HO.PSYCHPN ---
Subjective Subjective Date of Service: 06/05/23 Reason For Visit: si / etoh Subjective Notes: Conditional Voluntary Interim History: Reviewed with Dr. Dobson. Active on unit, social with peers. attending groups. pt reports similar concerns of yesterday. He is anxiously awaiting to speak to aids social worker tomorrow. pt denies SI/HI/VH/AH. Medication Compliance: Yes Side effects from medications: No Attending Groups: Yes Review of Systems Constitutional: Reports as per HPI Eyes: Reports as per HPI Reports as per HPI Cardiovascular: Reports as per HPI Respiratory: Reports as per HPI Gastrointestinal: Reports as per HPI Genitourinary: Reports as per HPI Musculoskeletal: Reports as per HPI Skin/Breast: Reports as per HPI Reports as per HPI Psychiatric: Reports as per HPI Endocrine: Reports as per HPI Hematologic/Lymphatic: Reports as per HPI Allergic/Immunologic: Reports as per HPI Mental Status Exam Mental Status Exam Narrative: Pt is alert and oriented; behavior is cooperative, friendly and calm; dressed in casual attire; mood is described as anxious ; eye contact appropriate; Speech is normal rate, volume and prosody and not pressured; thought process is organized and goal directed; Thought content is on tx; denies SI/HI/VH/AH. Diagnostics Vital Signs (24Hr): Vital Signs - 24 hr 06/04/23 20:30 06/05/23 07:45 06/05/23 07:59 Temperature 97.5 F 97.3 F 97.3 F Pulse Rate 63 66 66 Respiratory Rate 18 14 20 Blood Pressure 136/69 141/80 H 141/80 H Pulse Oximetry 96 94 94 Oxygen Delivery Method Room Air Room Air Room Air BMI result Body Mass Index 28.0 Labs 05/30/23 11:29 06/01/23 08:28 Imaging Radiology Impressions: ITS Impressions Chest X-Ray 05/30/23 11:42 IMPRESSION: No acute intrathoracic disease. Incidental findings as described above. Chest CTA 05/30/23 12:37 IMPRESSION: 1. No evidence of pulmonary emboli. 2. Marked peribronchial thickening most prominent at the lung bases. 3. 2 and 3 mm lung nodules right middle lobe. No follow-up needed. VTE: negative. According to the UPDATED 2017 Fleischner Society recommendations, the advised follow-up imaging for solid nodules <6 mm in the middle/lower lobes is no routine follow up. Medications Medications Current Medications Acetaminophen (Acetaminophen 325 Mg Tablet) 650 mg PO Q6H PRN PRN Reason: Headache/Pain Mild Scale (1-3) Last Admin: 06/04/23 20:36 Dose: 650 mg Al Hydroxide/Mg Hydroxide (Magnesium Hydrox/Alum Hydrox 30 Ml Oral.Susp) 30 ml PO Q6H PRN PRN Reason: Heartburn/Nausea Last Admin: 06/03/23 15:50 Dose: 30 ml Aspirin (Aspirin Enteric Coated 81 Mg Tablet.Dr) 81 mg PO DAILY [facility] Last Admin: 06/05/23 09:10 Dose: 81 mg Atorvastatin Calcium (Atorvastatin Calcium 40 Mg Tablet) 40 mg PO DAILY [facility] Last Admin: 06/05/23 09:09 Dose: 40 mg Buspirone HCl (Buspirone Hcl 5 Mg Tablet) 15 mg PO TID [facility] Last Admin: 06/05/23 09:09 Dose: 15 mg Celecoxib (Celecoxib 100 Mg Capsule) 100 mg PO BID [facility] Last Admin: 06/05/23 09:09 Dose: 100 mg Clonidine HCl (Clonidine Hcl 0.1 Mg Tablet) 0.1 mg PO DAILY PRN; Protocol PRN Reason: Anxiety Fluoxetine HCl (Fluoxetine Hcl 20 Mg Capsule) 40 mg PO DAILY [facility] Last Admin: 06/05/23 09:09 Dose: 40 mg Hydroxyzine HCl (Hydroxyzine Hcl 25 Mg Tablet) 25 mg PO Q6H PRN PRN Reason: Anxiety Last Admin: 06/05/23 00:57 Dose: 25 mg Magnesium Hydroxide (Milk Of Magnesia 30 Ml Oral.Susp) 30 ml PO DAILY PRN PRN Reason: Constipation Melatonin (Melatonin 3 Mg Tablet) 9 mg PO BEDTIME PRN PRN Reason: Insomnia Metoprolol Tartrate (Metoprolol Tartrate 25 Mg Tablet) 25 mg PO BID [facility]; Protocol Last Admin: 06/05/23 09:09 Dose: 25 mg Naltrexone HCl (Naltrexone Hcl 50 Mg Tablet) 50 mg PO DAILY [facility] Last Admin: 06/05/23 09:09 Dose: 50 mg Nicotine (Nicotine 7 Mg Patch.Td24) 7 mg TRANSDERMA DAILY [facility] Last Admin: 06/05/23 09:08 Dose: 7 mg Nicotine Polacrilex (Nicotine Polacrilex 2 Mg Gum) 4 mg BUCCAL Q2H PRN PRN Reason: Nicotine Cravings Quetiapine Fumarate (Quetiapine Fumarate 25 Mg Tablet) 75 mg PO BEDTIME [facility] Last Admin: 06/04/23 20:34 Dose: 75 mg Trazodone HCl (Trazodone Hcl 50 Mg Tablet) 50 mg PO BEDTIME MRX1 PRN PRN Reason: Insomnia Allergies Allergies Allergy/AdvReac Type Severity Reaction Status Date / Time No Known Allergies Allergy Verified 05/30/23 11:36 Assessment & Plan Assessment & Plan (1) Major depression, recurrent, chronic: Status: Acute Code(s): F33.9 - Major depressive disorder, recurrent, unspecified (2) Adjustment disorder: Status: Acute Code(s): F43.20 - Adjustment disorder, unspecified (3) Alcohol use disorder: Status: Acute Code(s): F10.90 - Alcohol use, unspecified, uncomplicated Plan continue phenobarb taper restart/continue usual outpt regimen refer for rehab 06/02/23 cont plan of care 06/03/23 Detox is proceeding without complications. Pt reports an increase in anxiety, worry, depressive sx due to the unknown factor in his discharge planning and possibly needing to discharge to the street. He reports he will attempt suicide by running in front of a vehicle if discharged to the street. He is cooperative with [facility] application process and is wanting a program to re-establish his sobriety so he may return to his life and find a job. Plan: Increase Buspirone to 15 mg tid from 10 mg tid. [facility] bed search. 06/03: continue current tx plan. 06/04: continue tx plan. Patient educated on: diagnosis and medication risk/benefits Informed Consent: understands Reason for continued inpatient stay Substantial Risk for: med/psych decompensation Time Spent With Patient Time: Total time managing care of this patient today _20___ minutes.
[2023-06-05] MEDS: Magnesium Hydrox/Alum Hydrox 30 ML ORAL.SUSP PO (17:36)
[2023-06-05 20:42] VITALS: BP 129/75; PULSE 61; RESP 16; TEMP 36.7; O2SAT 95
[2023-06-05] MEDS: Melatonin 3 MG TABLET 9 MG PO (20:55)
[2023-06-05] MEDS: Acetaminophen 325 MG TABLET 650 MG PO (20:56)
[2023-06-05] MEDS: QUEtiapine Fumarate 25 MG TABLET 75 MG PO (20:56)
[2023-06-06 07:50] VITALS: BP 168/70; PULSE 59; RESP 18; TEMP 36.4; O2SAT 96
[2023-06-06] MEDS: FLUoxetine HCl 20 MG CAPSULE 40 MG PO (08:56)
[2023-06-06] MEDS: Atorvastatin Calcium 40 MG TABLET PO (08:56)
[2023-06-06] MEDS: busPIRone HCl 5 MG TABLET 15 MG PO ×3 (08:57→20:29)
[2023-06-06] MEDS: Aspirin Enteric Coated 81 MG TABLET.DR PO (08:57)
[2023-06-06] MEDS: Naltrexone HCl 50 MG TABLET PO (08:58)
[2023-06-06] MEDS: Celecoxib 100 MG CAPSULE PO ×2 (08:59→20:29)
[2023-06-06] MEDS: Metoprolol Tartrate 25 MG TABLET PO ×2 (08:59→20:29)
[2023-06-06] MEDS: Nicotine 7 MG PATCH.TD24 TRANSDERMA (09:00)
[2023-06-06] MEDS: Acetaminophen 325 MG TABLET 650 MG PO ×2 (14:15→20:29)
--- NOTE | 2023-06-06 15:03 | HO.PSYCHPN ---
Subjective Subjective Date of Service: 06/06/23 Reason For Visit: si / etoh Interim History: calm, cooperative. no complaints. completed phenobarb taper. c/o anxiety. reports will kill himself if discharged to the street. per staff, dep 2, + anxiety. taking meds, eating. slept well. Mental Status Exam Mental Status Exam Narrative: Pt is alert and oriented; behavior is cooperative, friendly and calm; dressed in casual attire; mood is described as anxious ; eye contact appropriate; Speech is normal rate, volume and prosody and not pressured; thought process is organized and goal directed; Thought content is on tx; no HI/VH/AH expressed. endorses SI if discharged to homelessness. Diagnostics Vital Signs (24Hr): Vital Signs - 24 hr 06/05/23 20:42 06/06/23 07:50 Temperature 98.1 F 97.5 F Pulse Rate 61 59 Respiratory Rate 16 18 Blood Pressure 129/75 168/70 H Pulse Oximetry 95 96 Oxygen Delivery Method Room Air Room Air BMI result Body Mass Index 28.0 Labs 05/30/23 11:29 06/01/23 08:28 Imaging Radiology Impressions: ITS Impressions Chest X-Ray 05/30/23 11:42 IMPRESSION: No acute intrathoracic disease. Incidental findings as described above. Chest CTA 05/30/23 12:37 IMPRESSION: 1. No evidence of pulmonary emboli. 2. Marked peribronchial thickening most prominent at the lung bases. 3. 2 and 3 mm lung nodules right middle lobe. No follow-up needed. VTE: negative. According to the UPDATED 2017 Fleischner Society recommendations, the advised follow-up imaging for solid nodules <6 mm in the middle/lower lobes is no routine follow up. Medications Medications Current Medications Acetaminophen (Acetaminophen 325 Mg Tablet) 650 mg PO Q6H PRN PRN Reason: Headache/Pain Mild Scale (1-3) Last Admin: 06/06/23 14:15 Dose: 650 mg Al Hydroxide/Mg Hydroxide (Magnesium Hydrox/Alum Hydrox 30 Ml Oral.Susp) 30 ml PO Q6H PRN PRN Reason: Heartburn/Nausea Last Admin: 06/05/23 17:36 Dose: 30 ml Aspirin (Aspirin Enteric Coated 81 Mg Tablet.Dr) 81 mg PO DAILY [facility] Last Admin: 06/06/23 08:57 Dose: 81 mg Atorvastatin Calcium (Atorvastatin Calcium 40 Mg Tablet) 40 mg PO DAILY [facility] Last Admin: 06/06/23 08:56 Dose: 40 mg Buspirone HCl (Buspirone Hcl 5 Mg Tablet) 15 mg PO TID [facility] Last Admin: 06/06/23 14:09 Dose: 15 mg Celecoxib (Celecoxib 100 Mg Capsule) 100 mg PO BID [facility] Last Admin: 06/06/23 08:59 Dose: 100 mg Clonidine HCl (Clonidine Hcl 0.1 Mg Tablet) 0.1 mg PO DAILY PRN; Protocol PRN Reason: Anxiety Fluoxetine HCl (Fluoxetine Hcl 20 Mg Capsule) 40 mg PO DAILY [facility] Last Admin: 06/06/23 08:56 Dose: 40 mg Hydroxyzine HCl (Hydroxyzine Hcl 25 Mg Tablet) 25 mg PO Q6H PRN PRN Reason: Anxiety Last Admin: 06/05/23 20:56 Dose: 25 mg Magnesium Hydroxide (Milk Of Magnesia 30 Ml Oral.Susp) 30 ml PO DAILY PRN PRN Reason: Constipation Melatonin (Melatonin 3 Mg Tablet) 9 mg PO BEDTIME PRN PRN Reason: Insomnia Last Admin: 06/05/23 20:55 Dose: 9 mg Metoprolol Tartrate (Metoprolol Tartrate 25 Mg Tablet) 25 mg PO BID [facility]; Protocol Last Admin: 06/06/23 08:59 Dose: 25 mg Naltrexone HCl (Naltrexone Hcl 50 Mg Tablet) 50 mg PO DAILY [facility] Last Admin: 06/06/23 08:58 Dose: 50 mg Nicotine (Nicotine 7 Mg Patch.Td24) 7 mg TRANSDERMA DAILY [facility] Last Admin: 06/06/23 09:00 Dose: 7 mg Nicotine Polacrilex (Nicotine Polacrilex 2 Mg Gum) 4 mg BUCCAL Q2H PRN PRN Reason: Nicotine Cravings Quetiapine Fumarate (Quetiapine Fumarate 25 Mg Tablet) 75 mg PO BEDTIME [facility] Last Admin: 06/05/23 20:56 Dose: 75 mg Trazodone HCl (Trazodone Hcl 50 Mg Tablet) 50 mg PO BEDTIME MRX1 PRN PRN Reason: Insomnia Allergies Allergies Allergy/AdvReac Type Severity Reaction Status Date / Time No Known Allergies Allergy Verified 05/30/23 11:36 Assessment & Plan Assessment & Plan (1) Major depression, recurrent, chronic: Status: Acute Code(s): F33.9 - Major depressive disorder, recurrent, unspecified (2) Adjustment disorder: Status: Acute Code(s): F43.20 - Adjustment disorder, unspecified (3) Alcohol use disorder: Status: Acute Code(s): F10.90 - Alcohol use, unspecified, uncomplicated Plan continue phenobarb taper restart/continue usual outpt regimen refer for rehab 06/02/23 cont plan of care 06/03/23 Detox is proceeding without complications. Pt reports an increase in anxiety, worry, depressive sx due to the unknown factor in his discharge planning and possibly needing to discharge to the street. He reports he will attempt suicide by running in front of a vehicle if discharged to the street. He is cooperative with [facility] application process and is wanting a program to re-establish his sobriety so he may return to his life and find a job. Plan: Increase Buspirone to 15 mg tid from 10 mg tid. [facility] bed search. 06/03: continue current tx plan. 06/04: continue tx plan. 06/05: discharge-dependent SI expressed. awaiting acceptance to rehab. anxious. continue current mgmt. Reason for continued inpatient stay Substantial Risk for: harm to self, inability to function and rapid decompensation Time Spent With Patient Time: Total time managing care of this patient today __25__ minutes.
[2023-06-06] MEDS: Magnesium Hydrox/Alum Hydrox 30 ML ORAL.SUSP PO (15:58)
[2023-06-06 17:55] LABS: COVID-19 Test Negative (Negative); IDNOW Serial# 152EDE1D
[2023-06-06 20:15] VITALS: BP 130/64; PULSE 60; RESP 16; TEMP 36.7; O2SAT 97
[2023-06-06] MEDS: QUEtiapine Fumarate 25 MG TABLET 75 MG PO (20:29)
[2023-06-06] MEDS: hydrOXYzine HCL 25 MG TABLET PO (20:29)
[2023-06-06] MEDS: Melatonin 3 MG TABLET 9 MG PO (20:33)
[2023-06-07 08:40] VITALS: BP 134/75; PULSE 58; TEMP 36.4; O2SAT 99
[2023-06-07] MEDS: FLUoxetine HCl 20 MG CAPSULE 40 MG PO (08:58)
[2023-06-07] MEDS: Naltrexone HCl 50 MG TABLET PO (08:59)
[2023-06-07] MEDS: Atorvastatin Calcium 40 MG TABLET PO (08:59)
[2023-06-07] MEDS: busPIRone HCl 5 MG TABLET 15 MG PO ×3 (08:59→20:07)
[2023-06-07] MEDS: Metoprolol Tartrate 25 MG TABLET PO ×2 (08:59→20:07)
[2023-06-07] MEDS: Aspirin Enteric Coated 81 MG TABLET.DR PO (09:00)
[2023-06-07] MEDS: Celecoxib 100 MG CAPSULE PO ×2 (09:00→20:07)
[2023-06-07] MEDS: Nicotine 7 MG PATCH.TD24 TRANSDERMA (09:01)
--- NOTE | 2023-06-07 14:39 | PC.NURSE ---
Deburr Technician administered the MOCA assessment to pt who scored a 22 out of 30 indicating a mild cognitive impairment.
[2023-06-07] MEDS: Acetaminophen 325 MG TABLET 650 MG PO ×2 (15:37→22:30)
--- NOTE | 2023-06-07 15:42 | P.PNPSI_ITS ---
Subjective Subjective Date of Service: 06/07/23 Reason For Visit: si / etoh Interim History: calm, cooperative. feeling well, no complaints. aware his insurance doesn't cover rehabs, awaiting insurance change in order to safely move pt along. per staff, endorsing anxiety. COVID NEG. + depression. + meds. slept well. Mental Status Exam Mental Status Exam Narrative: Pt is alert and oriented; behavior is cooperative, friendly and calm; dressed in casual attire; mood is described as anxious ; eye contact appropriate; Speech is normal rate, volume and prosody and not pressured; thought process is organized and goal directed; Thought content is on tx; no HI/VH/AH expressed. [facility] Diagnostics Vital Signs (24Hr): Vital Signs - 24 hr 06/06/23 20:15 06/07/23 08:40 Temperature 98.0 F 97.5 F Pulse Rate 60 58 Respiratory Rate 16 Blood Pressure 130/64 134/75 Pulse Oximetry 97 99 Oxygen Delivery Method Room Air Room Air BMI result Body Mass Index 28.0 Labs 05/30/23 11:29 06/01/23 08:28 Labs: Laboratory Results - last 48 hr 06/06/23 17:25 COVID-19 ([place]) Negative COVID-19 Clin Com See Note Imaging Radiology Impressions: ITS Impressions Chest X-Ray 05/30/23 11:42 IMPRESSION: No acute intrathoracic disease. Incidental findings as described above. Chest CTA 05/30/23 12:37 IMPRESSION: 1. No evidence of pulmonary emboli. 2. Marked peribronchial thickening most prominent at the lung bases. 3. 2 and 3 mm lung nodules right middle lobe. No follow-up needed. VTE: negative. According to the UPDATED 2017 Fleischner Society recommendations, the advised follow-up imaging for solid nodules <6 mm in the middle/lower lobes is no routine follow up. Medications Medications Current Medications Acetaminophen (Acetaminophen 325 Mg Tablet) 650 mg PO Q6H PRN PRN Reason: Headache/Pain Mild Scale (1-3) Last Admin: 06/07/23 15:37 Dose: 650 mg Al Hydroxide/Mg Hydroxide (Magnesium Hydrox/Alum Hydrox 30 Ml Oral.Susp) 30 ml PO Q6H PRN PRN Reason: Heartburn/Nausea Last Admin: 06/06/23 15:58 Dose: 30 ml Aspirin (Aspirin Enteric Coated 81 Mg Tablet.Dr) 81 mg PO DAILY [facility] Last Admin: 06/07/23 09:00 Dose: 81 mg Atorvastatin Calcium (Atorvastatin Calcium 40 Mg Tablet) 40 mg PO DAILY [facility] Last Admin: 06/07/23 08:59 Dose: 40 mg Buspirone HCl (Buspirone Hcl 5 Mg Tablet) 15 mg PO TID [facility] Last Admin: 06/07/23 15:36 Dose: 15 mg Celecoxib (Celecoxib 100 Mg Capsule) 100 mg PO BID [facility] Last Admin: 06/07/23 09:00 Dose: 100 mg Clonidine HCl (Clonidine Hcl 0.1 Mg Tablet) 0.1 mg PO DAILY PRN; Protocol PRN Reason: Anxiety Fluoxetine HCl (Fluoxetine Hcl 20 Mg Capsule) 40 mg PO DAILY [facility] Last Admin: 06/07/23 08:58 Dose: 40 mg Hydroxyzine HCl (Hydroxyzine Hcl 25 Mg Tablet) 25 mg PO Q6H PRN PRN Reason: Anxiety Last Admin: 06/06/23 20:29 Dose: 25 mg Magnesium Hydroxide (Milk Of Magnesia 30 Ml Oral.Susp) 30 ml PO DAILY PRN PRN Reason: Constipation Melatonin (Melatonin 3 Mg Tablet) 9 mg PO BEDTIME PRN PRN Reason: Insomnia Last Admin: 06/06/23 20:33 Dose: 9 mg Metoprolol Tartrate (Metoprolol Tartrate 25 Mg Tablet) 25 mg PO BID [facility]; Protocol Last Admin: 06/07/23 08:59 Dose: 25 mg Naltrexone HCl (Naltrexone Hcl 50 Mg Tablet) 50 mg PO DAILY [facility] Last Admin: 06/07/23 08:59 Dose: 50 mg Nicotine (Nicotine 7 Mg Patch.Td24) 7 mg TRANSDERMA DAILY [facility] Last Admin: 06/07/23 09:01 Dose: 7 mg Nicotine Polacrilex (Nicotine Polacrilex 2 Mg Gum) 4 mg BUCCAL Q2H PRN PRN Reason: Nicotine Cravings Quetiapine Fumarate (Quetiapine Fumarate 25 Mg Tablet) 75 mg PO BEDTIME [facility] Last Admin: 06/06/23 20:29 Dose: 75 mg Trazodone HCl (Trazodone Hcl 50 Mg Tablet) 50 mg PO BEDTIME MRX1 PRN PRN Reason: Insomnia Allergies Allergies Allergy/AdvReac Type Severity Reaction Status Date / Time No Known Allergies Allergy Verified 05/30/23 11:36 Assessment & Plan Assessment & Plan (1) Major depression, recurrent, chronic: Status: Acute Code(s): F33.9 - Major depressive disorder, recurrent, unspecified (2) Adjustment disorder: Status: Acute Code(s): F43.20 - Adjustment disorder, unspecified (3) Alcohol use disorder: Status: Acute Code(s): F10.90 - Alcohol use, unspecified, uncomplicated Plan continue phenobarb taper restart/continue usual outpt regimen refer for rehab 06/02/23 cont plan of care 06/03/23 Detox is proceeding without complications. Pt reports an increase in anxiety, worry, depressive sx due to the unknown factor in his discharge planning and possibly needing to discharge to the street. He reports he will attempt suicide by running in front of a vehicle if discharged to the street. He is cooperative with [facility] application process and is wanting a program to re-establish his sobriety so he may return to his life and find a job. Plan: Increase Buspirone to 15 mg tid from 10 mg tid. [facility] bed search. 06/03: continue current tx plan. 06/04: continue tx plan. 06/05: discharge-dependent SI expressed. awaiting acceptance to rehab. anxious. continue current mgmt. 06/05: discharge-dependent SI. awaiting insurance change so pt may attend rehab. anxious. continue current mgmt. Reason for continued inpatient stay Substantial Risk for: harm to self, inability to function and rapid decompensation Time Spent With Patient Time: Total time managing care of this patient today __25__ minutes.
[2023-06-07] MEDS: Magnesium Hydrox/Alum Hydrox 30 ML ORAL.SUSP PO (18:55)
[2023-06-07 20:00] VITALS: BP 134/62; PULSE 60; RESP 16; TEMP 36.6; O2SAT 98
[2023-06-07] MEDS: Melatonin 3 MG TABLET 9 MG PO (20:06)
[2023-06-07] MEDS: hydrOXYzine HCL 25 MG TABLET PO (20:07)
[2023-06-07] MEDS: QUEtiapine Fumarate 25 MG TABLET 75 MG PO (20:07)
[2023-06-08] MEDS: Nicotine 7 MG PATCH.TD24 TRANSDERMA (08:59)
[2023-06-08] MEDS: busPIRone HCl 5 MG TABLET 15 MG PO ×3 (08:59→20:25)
[2023-06-08] MEDS: Naltrexone HCl 50 MG TABLET PO (08:59)
[2023-06-08] MEDS: Metoprolol Tartrate 25 MG TABLET PO ×2 (08:59→20:25)
[2023-06-08] MEDS: Celecoxib 100 MG CAPSULE PO ×2 (08:59→20:25)
[2023-06-08] MEDS: FLUoxetine HCl 20 MG CAPSULE 40 MG PO (08:59)
[2023-06-08] MEDS: Atorvastatin Calcium 40 MG TABLET PO (08:59)
[2023-06-08] MEDS: Aspirin Enteric Coated 81 MG TABLET.DR PO (08:59)
[2023-06-08 11:09] VITALS: BP 122/57; PULSE 56; RESP 20; TEMP 36.8; O2SAT 97
--- NOTE | 2023-06-08 12:31 | P.PNPSI_ITS ---
Subjective Subjective Date of Service: 06/08/23 Reason For Visit: si / etoh Interim History: calm, cooperative, stable presentation. c/o some insomnia, asks for HS seroquel dosing to be increased. awaiting rehab admission. per staff, broad affect. eating well, med-compliant. anxiety related to aftercare. slept about 7 hours. Mental Status Exam Mental Status Exam Narrative: Pt is alert and oriented; behavior is cooperative, friendly and calm; dressed in casual attire; mood is described as anxious ; eye contact appropriate; Speech is normal rate, volume and prosody and not pressured; thought process is organized and goal directed; Thought content is on tx; no HI/VH/AH expressed. endorses [facility]. Diagnostics Vital Signs (24Hr): Vital Signs - 24 hr 06/07/23 20:00 06/08/23 11:09 Temperature 97.8 F 98.2 F Pulse Rate 60 56 Respiratory Rate 16 20 Blood Pressure 134/62 122/57 L Pulse Oximetry 98 97 Oxygen Delivery Method Room Air Room Air BMI result Body Mass Index 28.0 Labs 05/30/23 11:29 06/01/23 08:28 Labs: Laboratory Results - last 48 hr 06/06/23 17:25 COVID-19 ([place]) Negative COVID-19 Clin Com See Note Imaging Radiology Impressions: ITS Impressions Chest X-Ray 05/30/23 11:42 IMPRESSION: No acute intrathoracic disease. Incidental findings as described above. Chest CTA 05/30/23 12:37 IMPRESSION: 1. No evidence of pulmonary emboli. 2. Marked peribronchial thickening most prominent at the lung bases. 3. 2 and 3 mm lung nodules right middle lobe. No follow-up needed. VTE: negative. According to the UPDATED 2017 Fleischner Society recommendations, the advised follow-up imaging for solid nodules <6 mm in the middle/lower lobes is no routine follow up. Medications Medications Current Medications Acetaminophen (Acetaminophen 325 Mg Tablet) 650 mg PO Q6H PRN PRN Reason: Headache/Pain Mild Scale (1-3) Last Admin: 06/07/23 22:30 Dose: 650 mg Al Hydroxide/Mg Hydroxide (Magnesium Hydrox/Alum Hydrox 30 Ml Oral.Susp) 30 ml PO Q6H PRN PRN Reason: Heartburn/Nausea Last Admin: 06/07/23 18:55 Dose: 30 ml Aspirin (Aspirin Enteric Coated 81 Mg Tablet.Dr) 81 mg PO DAILY [facility] Last Admin: 06/08/23 08:59 Dose: 81 mg Atorvastatin Calcium (Atorvastatin Calcium 40 Mg Tablet) 40 mg PO DAILY [facility] Last Admin: 06/08/23 08:59 Dose: 40 mg Buspirone HCl (Buspirone Hcl 5 Mg Tablet) 15 mg PO TID [facility] Last Admin: 06/08/23 08:59 Dose: 15 mg Celecoxib (Celecoxib 100 Mg Capsule) 100 mg PO BID [facility] Last Admin: 06/08/23 08:59 Dose: 100 mg Clonidine HCl (Clonidine Hcl 0.1 Mg Tablet) 0.1 mg PO DAILY PRN; Protocol PRN Reason: Anxiety Fluoxetine HCl (Fluoxetine Hcl 20 Mg Capsule) 40 mg PO DAILY [facility] Last Admin: 06/08/23 08:59 Dose: 40 mg Hydroxyzine HCl (Hydroxyzine Hcl 25 Mg Tablet) 25 mg PO Q6H PRN PRN Reason: Anxiety Last Admin: 06/07/23 20:07 Dose: 25 mg Magnesium Hydroxide (Milk Of Magnesia 30 Ml Oral.Susp) 30 ml PO DAILY PRN PRN Reason: Constipation Melatonin (Melatonin 3 Mg Tablet) 9 mg PO BEDTIME PRN PRN Reason: Insomnia Last Admin: 06/07/23 20:06 Dose: 9 mg Metoprolol Tartrate (Metoprolol Tartrate 25 Mg Tablet) 25 mg PO BID [facility]; Protocol Last Admin: 06/08/23 08:59 Dose: 25 mg Naltrexone HCl (Naltrexone Hcl 50 Mg Tablet) 50 mg PO DAILY [facility] Last Admin: 06/08/23 08:59 Dose: 50 mg Nicotine (Nicotine 7 Mg Patch.Td24) 7 mg TRANSDERMA DAILY [facility] Last Admin: 06/08/23 08:59 Dose: 7 mg Nicotine Polacrilex (Nicotine Polacrilex 2 Mg Gum) 4 mg BUCCAL Q2H PRN PRN Reason: Nicotine Cravings Quetiapine Fumarate (Quetiapine Fumarate 100 Mg Tablet) 100 mg PO BEDTIME [facility] Trazodone HCl (Trazodone Hcl 50 Mg Tablet) 50 mg PO BEDTIME MRX1 PRN PRN Reason: Insomnia Allergies Allergies Allergy/AdvReac Type Severity Reaction Status Date / Time No Known Allergies Allergy Verified 05/30/23 11:36 Assessment & Plan Assessment & Plan (1) Major depression, recurrent, chronic: Status: Acute Code(s): F33.9 - Major depressive disorder, recurrent, unspecified (2) Adjustment disorder: Status: Acute Code(s): F43.20 - Adjustment disorder, unspecified (3) Alcohol use disorder: Status: Acute Code(s): F10.90 - Alcohol use, unspecified, uncomplicated Plan continue phenobarb taper restart/continue usual outpt regimen refer for rehab 06/02/23 cont plan of care 06/03/23 Detox is proceeding without complications. Pt reports an increase in anxiety, worry, depressive sx due to the unknown factor in his discharge planning and possibly needing to discharge to the street. He reports he will attempt suicide by running in front of a vehicle if discharged to the street. He is cooperative with [facility] application process and is wanting a program to re-establish his sobriety so he may return to his life and find a job. Plan: Increase Buspirone to 15 mg tid from 10 mg tid. [facility] bed search. 06/03: continue current tx plan. 06/04: continue tx plan. 06/05: discharge-dependent SI expressed. awaiting acceptance to rehab. anxious. continue current mgmt. 06/06: discharge-dependent SI. awaiting insurance change so pt may attend rehab. anxious. continue current mgmt. 06/07: discharge-dependent SI. awaiting insurance change so pt may attend rehab. anxious. increase HS seroquel from 75 mg to 100 mg due to insomnia. Reason for continued inpatient stay Substantial Risk for: harm to self, inability to function and rapid decompensation Time Spent With Patient Time: Total time managing care of this patient today __25__ minutes.
[2023-06-08] MEDS: Acetaminophen 325 MG TABLET 650 MG PO (16:02)
[2023-06-08 19:50] VITALS: BP 153/70; PULSE 64; RESP 18; TEMP 36.3; O2SAT 97
[2023-06-08] MEDS: Melatonin 3 MG TABLET 9 MG PO (20:25)
[2023-06-08] MEDS: QUEtiapine Fumarate 100 MG TABLET PO (20:25)
[2023-06-08] MEDS: Magnesium Hydrox/Alum Hydrox 30 ML ORAL.SUSP PO (20:54)
[2023-06-09] MEDS: Acetaminophen 325 MG TABLET 650 MG PO ×3 (00:36→20:08)
[2023-06-09 06:00] VITALS: BP 126/58; PULSE 49; RESP 14; O2SAT 98
[2023-06-09 07:00] VITALS: BMI 28.7
[2023-06-09] MEDS: FLUoxetine HCl 20 MG CAPSULE 40 MG PO (08:41)
[2023-06-09] MEDS: Aspirin Enteric Coated 81 MG TABLET.DR PO (08:42)
[2023-06-09] MEDS: Atorvastatin Calcium 40 MG TABLET PO (08:42)
[2023-06-09] MEDS: Naltrexone HCl 50 MG TABLET PO (08:42)
[2023-06-09] MEDS: Nicotine 7 MG PATCH.TD24 TRANSDERMA (08:42)
[2023-06-09] MEDS: Celecoxib 100 MG CAPSULE PO ×2 (08:42→20:04)
[2023-06-09 09:30] VITALS: BP 114/60; PULSE 60
[2023-06-09] MEDS: Metoprolol Tartrate 25 MG TABLET PO ×2 (09:39→20:05)
[2023-06-09] MEDS: busPIRone HCl 5 MG TABLET 15 MG PO ×3 (11:18→20:04)
--- NOTE | 2023-06-09 13:58 | P.PNPSI_ITS ---
Subjective Subjective Date of Service: 06/09/23 Reason For Visit: si / etoh Interim History: in bed, poor sleep overnight. agreeable to have extra 50 of seroquel available PRN. no other complaints or requests, awaiting admission to rehab. per staff, blunted, withdrawn. taking meds. Mental Status Exam Mental Status Exam Narrative: Pt is alert and oriented; behavior is cooperative, friendly and calm; dressed in casual attire; mood is described as anxious ; eye contact appropriate; Speech is normal rate, volume and prosody and not pressured; thought process is organized and goal directed; Thought content is on tx; no SI/HI/AVH expressed. Diagnostics Vital Signs (24Hr): Vital Signs - 24 hr 06/08/23 19:50 06/09/23 06:00 Temperature 97.3 F Pulse Rate 64 49 L Respiratory Rate 18 14 Blood Pressure 153/70 H 126/58 L Pulse Oximetry 97 98 Oxygen Delivery Method Room Air Room Air BMI result Body Mass Index 28.7 Labs 05/30/23 11:29 06/01/23 08:28 Imaging Radiology Impressions: ITS Impressions Chest X-Ray 05/30/23 11:42 IMPRESSION: No acute intrathoracic disease. Incidental findings as described above. Chest CTA 05/30/23 12:37 IMPRESSION: 1. No evidence of pulmonary emboli. 2. Marked peribronchial thickening most prominent at the lung bases. 3. 2 and 3 mm lung nodules right middle lobe. No follow-up needed. VTE: negative. According to the UPDATED 2017 Fleischner Society recommendations, the advised follow-up imaging for solid nodules <6 mm in the middle/lower lobes is no routine follow up. Medications Medications Current Medications Acetaminophen (Acetaminophen 325 Mg Tablet) 650 mg PO Q6H PRN PRN Reason: Headache/Pain Mild Scale (1-3) Last Admin: 06/09/23 09:39 Dose: 650 mg Al Hydroxide/Mg Hydroxide (Magnesium Hydrox/Alum Hydrox 30 Ml Oral.Susp) 30 ml PO Q6H PRN PRN Reason: Heartburn/Nausea Last Admin: 06/08/23 20:54 Dose: 30 ml Aspirin (Aspirin Enteric Coated 81 Mg Tablet.) 81 mg PO DAILY [facility] Last Admin: 06/09/23 08:42 Dose: 81 mg Atorvastatin Calcium (Atorvastatin Calcium 40 Mg Tablet) 40 mg PO DAILY [facility] Last Admin: 06/09/23 08:42 Dose: 40 mg Buspirone HCl (Buspirone Hcl 5 Mg Tablet) 15 mg PO TID [facility] Last Admin: 06/09/23 11:18 Dose: 15 mg Celecoxib (Celecoxib 100 Mg Capsule) 100 mg PO BID [facility] Last Admin: 06/09/23 08:42 Dose: 100 mg Clonidine HCl (Clonidine Hcl 0.1 Mg Tablet) 0.1 mg PO DAILY PRN; Protocol PRN Reason: Anxiety Fluoxetine HCl (Fluoxetine Hcl 20 Mg Capsule) 40 mg PO DAILY [facility] Last Admin: 06/09/23 08:41 Dose: 40 mg Hydroxyzine HCl (Hydroxyzine Hcl 25 Mg Tablet) 25 mg PO Q6H PRN PRN Reason: Anxiety Last Admin: 06/07/23 20:07 Dose: 25 mg Magnesium Hydroxide (Milk Of Magnesia 30 Ml Oral.Susp) 30 ml PO DAILY PRN PRN Reason: Constipation Melatonin (Melatonin 3 Mg Tablet) 9 mg PO BEDTIME PRN PRN Reason: Insomnia Last Admin: 06/08/23 20:25 Dose: 9 mg Metoprolol Tartrate (Metoprolol Tartrate 25 Mg Tablet) 25 mg PO BID [facility]; Protocol Last Admin: 06/09/23 09:39 Dose: 25 mg Naltrexone HCl (Naltrexone Hcl 50 Mg Tablet) 50 mg PO DAILY [facility] Last Admin: 06/09/23 08:42 Dose: 50 mg Nicotine (Nicotine 7 Mg Patch.Td24) 7 mg TRANSDERMA DAILY [facility] Last Admin: 06/09/23 08:42 Dose: 7 mg Nicotine Polacrilex (Nicotine Polacrilex 2 Mg Gum) 4 mg BUCCAL Q2H PRN PRN Reason: Nicotine Cravings Quetiapine Fumarate (Quetiapine Fumarate 100 Mg Tablet) 100 mg PO BEDTIME [facility] Last Admin: 06/08/23 20:25 Dose: 100 mg Quetiapine Fumarate (Quetiapine Fumarate 50 Mg Tablet) 50 mg PO BEDTIME PRN PRN Reason: insomnia Allergies Allergies Allergy/AdvReac Type Severity Reaction Status Date / Time No Known Allergies Allergy Verified 05/30/23 11:36 Assessment & Plan Assessment & Plan (1) Major depression, recurrent, chronic: Status: Acute Code(s): F33.9 - Major depressive disorder, recurrent, unspecified (2) Adjustment disorder: Status: Acute Code(s): F43.20 - Adjustment disorder, unspecified (3) Alcohol use disorder: Status: Acute Code(s): F10.90 - Alcohol use, unspecified, uncomplicated Plan continue phenobarb taper restart/continue usual outpt regimen refer for rehab 06/02/23 cont plan of care 06/03/23 Detox is proceeding without complications. Pt reports an increase in anxiety, worry, depressive sx due to the unknown factor in his discharge planning and possibly needing to discharge to the street. He reports he will attempt suicide by running in front of a vehicle if discharged to the street. He is cooperative with [facility] application process and is wanting a program to re-establish his sobriety so he may return to his life and find a job. Plan: Increase Buspirone to 15 mg tid from 10 mg tid. [facility] bed search. 06/03: continue current tx plan. 06/04: continue tx plan. 06/05: discharge-dependent SI expressed. awaiting acceptance to rehab. anxious. continue current mgmt. 06/06: discharge-dependent SI. awaiting insurance change so pt may attend rehab. anxious. continue current mgmt. 06/07: discharge-dependent SI. awaiting insurance change so pt may attend rehab. anxious. increase HS seroquel from 75 mg to 100 mg due to insomnia. 06/08: awaiting insurance change so pt may attend rehab. anxious. add seroquel 50 QHS PRN insomnia. Reason for continued inpatient stay Substantial Risk for: harm to self, inability to function and rapid decompensation Time Spent With Patient Time: Total time managing care of this patient today _25___ minutes.
[2023-06-09 20:00] VITALS: BP 180/77; PULSE 61; RESP 16; TEMP 36.6; O2SAT 98
[2023-06-09] MEDS: Melatonin 3 MG TABLET 9 MG PO (20:04)
[2023-06-09] MEDS: QUEtiapine Fumarate 100 MG TABLET PO (20:04)
[2023-06-09] MEDS: QUEtiapine Fumarate 50 MG TABLET PO (20:05)
[2023-06-10 06:00] VITALS: BP 146/64; PULSE 54; RESP 18; TEMP 36.6; O2SAT 96
[2023-06-10] MEDS: Nicotine 7 MG PATCH.TD24 TRANSDERMA (09:34)
[2023-06-10] MEDS: Naltrexone HCl 50 MG TABLET PO (09:34)
[2023-06-10] MEDS: busPIRone HCl 5 MG TABLET 15 MG PO ×3 (09:34→20:32)
[2023-06-10] MEDS: Atorvastatin Calcium 40 MG TABLET PO (09:34)
[2023-06-10] MEDS: Celecoxib 100 MG CAPSULE PO ×2 (09:34→20:32)
[2023-06-10] MEDS: Aspirin Enteric Coated 81 MG TABLET.DR PO (09:34)
[2023-06-10 09:35] VITALS: PULSE 72
[2023-06-10] MEDS: Metoprolol Tartrate 25 MG TABLET PO ×2 (09:35→20:32)
[2023-06-10] MEDS: FLUoxetine HCl 20 MG CAPSULE 40 MG PO (09:35)
[2023-06-10] MEDS: Famotidine 20 MG TABLET PO (10:26)
[2023-06-10] MEDS: Acetaminophen 325 MG TABLET 650 MG PO ×2 (10:26→18:49)
--- NOTE | 2023-06-10 15:05 | HO.PSYCHPN ---
Subjective Subjective Date of Service: 06/10/23 Reason For Visit: si / etoh Interim History: reports he slept well. awaiting bed at rehab. would like to schedule seroquel 150 at HS for sleep. also requesting GERD Tx. per staff, dep 3 anx 5. taking meds. c/o poor sleep. slept well overnight. Mental Status Exam Mental Status Exam Narrative: Pt is alert and oriented; behavior is cooperative, friendly and calm; dressed in casual attire; mood is described as anxious ; eye contact appropriate; Speech is normal rate, volume and prosody and not pressured; thought process is organized and goal directed; Thought content is on tx; no SI/HI/AVH expressed. Diagnostics Vital Signs (24Hr): Vital Signs - 24 hr 06/09/23 20:00 06/10/23 06:00 06/10/23 09:35 Temperature 97.8 F 98 F Pulse Rate 61 54 72 Respiratory Rate 16 18 Blood Pressure 180/77 H 146/64 H Pulse Oximetry 98 96 Oxygen Delivery Method Room Air Room Air BMI result Body Mass Index 28.7 Labs 05/30/23 11:29 06/01/23 08:28 Imaging Radiology Impressions: ITS Impressions Chest X-Ray 05/30/23 11:42 IMPRESSION: No acute intrathoracic disease. Incidental findings as described above. Chest CTA 05/30/23 12:37 IMPRESSION: 1. No evidence of pulmonary emboli. 2. Marked peribronchial thickening most prominent at the lung bases. 3. 2 and 3 mm lung nodules right middle lobe. No follow-up needed. VTE: negative. According to the UPDATED 2017 Fleischner Society recommendations, the advised follow-up imaging for solid nodules <6 mm in the middle/lower lobes is no routine follow up. Medications Medications Current Medications Acetaminophen (Acetaminophen 325 Mg Tablet) 650 mg PO Q6H PRN PRN Reason: Headache/Pain Mild Scale (1-3) Last Admin: 06/10/23 10:26 Dose: 650 mg Al Hydroxide/Mg Hydroxide (Magnesium Hydrox/Alum Hydrox 30 Ml Oral.Susp) 30 ml PO Q6H PRN PRN Reason: Heartburn/Nausea Last Admin: 06/08/23 20:54 Dose: 30 ml Aspirin (Aspirin Enteric Coated 81 Mg Tablet.Dr) 81 mg PO DAILY [facility] Last Admin: 06/10/23 09:34 Dose: 81 mg Atorvastatin Calcium (Atorvastatin Calcium 40 Mg Tablet) 40 mg PO DAILY [facility] Last Admin: 06/10/23 09:34 Dose: 40 mg Buspirone HCl (Buspirone Hcl 5 Mg Tablet) 15 mg PO TID [facility] Last Admin: 06/10/23 09:34 Dose: 15 mg Celecoxib (Celecoxib 100 Mg Capsule) 100 mg PO BID [facility] Last Admin: 06/10/23 09:34 Dose: 100 mg Clonidine HCl (Clonidine Hcl 0.1 Mg Tablet) 0.1 mg PO DAILY PRN; Protocol PRN Reason: Anxiety Famotidine (Famotidine 20 Mg Tablet) 20 mg PO DAILY [facility] Last Admin: 06/10/23 10:26 Dose: 20 mg Fluoxetine HCl (Fluoxetine Hcl 20 Mg Capsule) 40 mg PO DAILY [facility] Last Admin: 06/10/23 09:35 Dose: 40 mg Hydroxyzine HCl (Hydroxyzine Hcl 25 Mg Tablet) 25 mg PO Q6H PRN PRN Reason: Anxiety Last Admin: 06/07/23 20:07 Dose: 25 mg Magnesium Hydroxide (Milk Of Magnesia 30 Ml Oral.Susp) 30 ml PO DAILY PRN PRN Reason: Constipation Melatonin (Melatonin 3 Mg Tablet) 9 mg PO BEDTIME PRN PRN Reason: Insomnia Last Admin: 06/09/23 20:04 Dose: 9 mg Metoprolol Tartrate (Metoprolol Tartrate 25 Mg Tablet) 25 mg PO BID [facility]; Protocol Last Admin: 06/10/23 09:35 Dose: 25 mg Naltrexone HCl (Naltrexone Hcl 50 Mg Tablet) 50 mg PO DAILY [facility] Last Admin: 06/10/23 09:34 Dose: 50 mg Nicotine (Nicotine 7 Mg Patch.Td24) 7 mg TRANSDERMA DAILY [facility] Last Admin: 06/10/23 09:34 Dose: 7 mg Nicotine Polacrilex (Nicotine Polacrilex 2 Mg Gum) 4 mg BUCCAL Q2H PRN PRN Reason: Nicotine Cravings Quetiapine Fumarate (Quetiapine Fumarate 50 Mg Tablet) 50 mg PO BEDTIME PRN PRN Reason: insomnia Last Admin: 06/09/23 20:05 Dose: 50 mg Quetiapine Fumarate (Quetiapine Fumarate 50 Mg Tablet) 150 mg PO BEDTIME [facility] Allergies Allergies Allergy/AdvReac Type Severity Reaction Status Date / Time No Known Allergies Allergy Verified 05/30/23 11:36 Assessment & Plan Assessment & Plan (1) Major depression, recurrent, chronic: Status: Acute Code(s): F33.9 - Major depressive disorder, recurrent, unspecified (2) Adjustment disorder: Status: Acute Code(s): F43.20 - Adjustment disorder, unspecified (3) Alcohol use disorder: Status: Acute Code(s): F10.90 - Alcohol use, unspecified, uncomplicated Plan continue phenobarb taper restart/continue usual outpt regimen refer for rehab 06/02/23 cont plan of care 06/03/23 Detox is proceeding without complications. Pt reports an increase in anxiety, worry, depressive sx due to the unknown factor in his discharge planning and possibly needing to discharge to the street. He reports he will attempt suicide by running in front of a vehicle if discharged to the street. He is cooperative with [facility] application process and is wanting a program to re-establish his sobriety so he may return to his life and find a job. Plan: Increase Buspirone to 15 mg tid from 10 mg tid. [facility] bed search. 06/03: continue current tx plan. 06/04: continue tx plan. 06/05: discharge-dependent SI expressed. awaiting acceptance to rehab. anxious. continue current mgmt. 06/06: discharge-dependent SI. awaiting insurance change so pt may attend rehab. anxious. continue current mgmt. 06/07: discharge-dependent SI. awaiting insurance change so pt may attend rehab. anxious. increase HS seroquel from 75 mg to 100 mg due to insomnia. 06/08: awaiting insurance change so pt may attend rehab. anxious. add seroquel 50 QHS PRN insomnia. 06/09: awaiting insurance change so pt may attend rehab. anxious. add seroquel 150 QHS for insomnia. add famotidine 20 daily for GERD Sx. Reason for continued inpatient stay Substantial Risk for: inability to function and rapid decompensation Time Spent With Patient Time: Total time managing care of this patient today _25___ minutes.
[2023-06-10 20:01] VITALS: BP 139/62; PULSE 60; RESP 18; TEMP 36.7; O2SAT 97
[2023-06-10] MEDS: Melatonin 3 MG TABLET 9 MG PO (20:31)
[2023-06-10] MEDS: QUEtiapine Fumarate 50 MG TABLET 150 MG PO (20:32)
[2023-06-10] MEDS: QUEtiapine Fumarate 50 MG TABLET PO (20:35)
[2023-06-10] MEDS: hydrOXYzine HCL 25 MG TABLET PO (20:35)
[2023-06-11 06:00] VITALS: BP 135/62; PULSE 63; RESP 14; TEMP 36.8; O2SAT 97
[2023-06-11] MEDS: Celecoxib 100 MG CAPSULE PO ×2 (09:16→20:23)
[2023-06-11] MEDS: Nicotine 7 MG PATCH.TD24 TRANSDERMA (09:16)
[2023-06-11] MEDS: Famotidine 20 MG TABLET PO (09:17)
[2023-06-11] MEDS: Atorvastatin Calcium 40 MG TABLET PO (09:17)
[2023-06-11] MEDS: FLUoxetine HCl 20 MG CAPSULE 40 MG PO (09:17)
[2023-06-11] MEDS: busPIRone HCl 5 MG TABLET 15 MG PO ×3 (09:17→20:22)
[2023-06-11] MEDS: Aspirin Enteric Coated 81 MG TABLET.DR PO (09:18)
[2023-06-11] MEDS: Naltrexone HCl 50 MG TABLET PO (09:18)
[2023-06-11] MEDS: Metoprolol Tartrate 25 MG TABLET PO ×2 (09:18→20:23)
[2023-06-11] MEDS: Acetaminophen 325 MG TABLET 650 MG PO ×2 (09:19→20:22)
--- NOTE | 2023-06-11 14:04 | HO.PSYCHPN ---
Subjective Subjective Date of Service: 06/11/23 Reason For Visit: si / etoh Subjective Notes: Conditional Voluntary Interim History: The nursing staff reported the patient had been compliant with treatment. He slept 8 hours. On interview the patient denies new symptoms waiting for placement. Mental Status Exam Mental Status Exam Patient Appearance: Appropriate Patient Orientation: Person, Place, Time and Situation Level of Consciousness: Awake and Appropriate Patient Behavior: Guarded and Passive Mood Description: Withdrawn Affect Description: Constricted Patient Cognition Impaired: Yes Ability to Follow Directions: Good Speech Pattern: Clear Hallucinations: None Delusions: Not Present Thought Process: Intact Thought Content: positive for Circumstantial Judgement: Fair Diagnostics Vital Signs (24Hr): Vital Signs - 24 hr 06/10/23 20:01 06/11/23 06:00 Temperature 98.0 F 98.2 F Pulse Rate 60 63 Respiratory Rate 18 14 Blood Pressure 139/62 135/62 Pulse Oximetry 97 97 Oxygen Delivery Method Room Air Room Air BMI result Body Mass Index 28.7 Labs 05/30/23 11:29 06/01/23 08:28 Imaging Radiology Impressions: ITS Impressions Chest X-Ray 05/30/23 11:42 IMPRESSION: No acute intrathoracic disease. Incidental findings as described above. Chest CTA 05/30/23 12:37 IMPRESSION: 1. No evidence of pulmonary emboli. 2. Marked peribronchial thickening most prominent at the lung bases. 3. 2 and 3 mm lung nodules right middle lobe. No follow-up needed. VTE: negative. According to the UPDATED 2017 Fleischner Society recommendations, the advised follow-up imaging for solid nodules <6 mm in the middle/lower lobes is no routine follow up. Medications Medications Current Medications Acetaminophen (Acetaminophen 325 Mg Tablet) 650 mg PO Q6H PRN PRN Reason: Headache/Pain Mild Scale (1-3) Last Admin: 06/11/23 09:19 Dose: 650 mg Al Hydroxide/Mg Hydroxide (Magnesium Hydrox/Alum Hydrox 30 Ml Oral.Susp) 30 ml PO Q6H PRN PRN Reason: Heartburn/Nausea Last Admin: 06/08/23 20:54 Dose: 30 ml Aspirin (Aspirin Enteric Coated 81 Mg Tablet.Dr) 81 mg PO DAILY [facility] Last Admin: 06/11/23 09:18 Dose: 81 mg Atorvastatin Calcium (Atorvastatin Calcium 40 Mg Tablet) 40 mg PO DAILY [facility] Last Admin: 06/11/23 09:17 Dose: 40 mg Buspirone HCl (Buspirone Hcl 5 Mg Tablet) 15 mg PO TID [facility] Last Admin: 06/11/23 09:17 Dose: 15 mg Celecoxib (Celecoxib 100 Mg Capsule) 100 mg PO BID [facility] Last Admin: 06/11/23 09:16 Dose: 100 mg Clonidine HCl (Clonidine Hcl 0.1 Mg Tablet) 0.1 mg PO DAILY PRN; Protocol PRN Reason: Anxiety Famotidine (Famotidine 20 Mg Tablet) 20 mg PO DAILY [facility] Last Admin: 06/11/23 09:17 Dose: 20 mg Fluoxetine HCl (Fluoxetine Hcl 20 Mg Capsule) 40 mg PO DAILY [facility] Last Admin: 06/11/23 09:17 Dose: 40 mg Hydroxyzine HCl (Hydroxyzine Hcl 25 Mg Tablet) 25 mg PO Q6H PRN PRN Reason: Anxiety Last Admin: 06/10/23 20:35 Dose: 25 mg Magnesium Hydroxide (Milk Of Magnesia 30 Ml Oral.Susp) 30 ml PO DAILY PRN PRN Reason: Constipation Melatonin (Melatonin 3 Mg Tablet) 9 mg PO BEDTIME PRN PRN Reason: Insomnia Last Admin: 06/10/23 20:31 Dose: 9 mg Metoprolol Tartrate (Metoprolol Tartrate 25 Mg Tablet) 25 mg PO BID [facility]; Protocol Last Admin: 06/11/23 09:18 Dose: 25 mg Naltrexone HCl (Naltrexone Hcl 50 Mg Tablet) 50 mg PO DAILY [facility] Last Admin: 06/11/23 09:18 Dose: 50 mg Nicotine (Nicotine 7 Mg Patch.Td24) 7 mg TRANSDERMA DAILY [facility] Last Admin: 06/11/23 09:16 Dose: 7 mg Nicotine Polacrilex (Nicotine Polacrilex 2 Mg Gum) 4 mg BUCCAL Q2H PRN PRN Reason: Nicotine Cravings Quetiapine Fumarate (Quetiapine Fumarate 50 Mg Tablet) 50 mg PO BEDTIME PRN PRN Reason: insomnia Last Admin: 06/10/23 20:35 Dose: 50 mg Quetiapine Fumarate (Quetiapine Fumarate 50 Mg Tablet) 150 mg PO BEDTIME [facility] Last Admin: 06/10/23 20:32 Dose: 150 mg Allergies Allergies Allergy/AdvReac Type Severity Reaction Status Date / Time No Known Allergies Allergy Verified 05/30/23 11:36 Assessment & Plan Assessment & Plan (1) Major depression, recurrent, chronic: Status: Acute Code(s): F33.9 - Major depressive disorder, recurrent, unspecified (2) Adjustment disorder: Status: Acute Code(s): F43.20 - Adjustment disorder, unspecified (3) Alcohol use disorder: Status: Acute Code(s): F10.90 - Alcohol use, unspecified, uncomplicated Plan continue phenobarb taper restart/continue usual outpt regimen refer for rehab 06/02/23 cont plan of care 06/03/23 Detox is proceeding without complications. Pt reports an increase in anxiety, worry, depressive sx due to the unknown factor in his discharge planning and possibly needing to discharge to the street. He reports he will attempt suicide by running in front of a vehicle if discharged to the street. He is cooperative with [facility] application process and is wanting a program to re-establish his sobriety so he may return to his life and find a job. Plan: Increase Buspirone to 15 mg tid from 10 mg tid. [facility] bed search. 06/03: continue current tx plan. 06/04: continue tx plan. 06/05: discharge-dependent SI expressed. awaiting acceptance to rehab. anxious. continue current mgmt. 06/06: discharge-dependent SI. awaiting insurance change so pt may attend rehab. anxious. continue current mgmt. 06/07: discharge-dependent SI. awaiting insurance change so pt may attend rehab. anxious. increase HS seroquel from 75 mg to 100 mg due to insomnia. 06/08: awaiting insurance change so pt may attend rehab. anxious. add seroquel 50 QHS PRN insomnia. 06/09: awaiting insurance change so pt may attend rehab. anxious. add seroquel 150 QHS for insomnia. add famotidine 20 daily for GERD Sx. keep same treatment Reason for continued inpatient stay Substantial Risk for: inability to function, rapid decompensation and med/psych decompensation Time Spent With Patient Time: Total time managing care of this patient today ___30_ minutes.
[2023-06-11 20:20] VITALS: BP 112/65; PULSE 65; RESP 18; TEMP 36.8; O2SAT 96
[2023-06-11] MEDS: QUEtiapine Fumarate 50 MG TABLET 150 MG PO (20:22)
[2023-06-11] MEDS: hydrOXYzine HCL 25 MG TABLET PO (20:22)
[2023-06-11] MEDS: QUEtiapine Fumarate 50 MG TABLET PO (20:22)
[2023-06-11] MEDS: Melatonin 3 MG TABLET 9 MG PO (20:23)
[2023-06-11] MEDS: Magnesium Hydrox/Alum Hydrox 30 ML ORAL.SUSP PO (21:11)
[2023-06-12 07:20] VITALS: BP 161/71; PULSE 54; RESP 14; TEMP 36.8; O2SAT 96
[2023-06-12] MEDS: Nicotine 7 MG PATCH.TD24 TRANSDERMA (08:54)
[2023-06-12] MEDS: busPIRone HCl 5 MG TABLET 15 MG PO ×3 (08:55→20:34)
[2023-06-12] MEDS: Famotidine 20 MG TABLET PO (08:55)
[2023-06-12] MEDS: Celecoxib 100 MG CAPSULE PO ×2 (08:56→20:39)
[2023-06-12] MEDS: Aspirin Enteric Coated 81 MG TABLET.DR PO (08:56)
[2023-06-12] MEDS: FLUoxetine HCl 20 MG CAPSULE 40 MG PO (08:56)
[2023-06-12] MEDS: Naltrexone HCl 50 MG TABLET PO (08:56)
[2023-06-12] MEDS: Atorvastatin Calcium 40 MG TABLET PO (08:56)
[2023-06-12] MEDS: Acetaminophen 325 MG TABLET 650 MG PO ×2 (09:09→20:33)
[2023-06-12 09:20] VITALS: PULSE 67
[2023-06-12] MEDS: Metoprolol Tartrate 25 MG TABLET PO ×2 (09:21→20:36)
--- NOTE | 2023-06-12 12:58 | P.PNPSI_ITS ---
Subjective Subjective Date of Service: 06/12/23 Reason For Visit: si / etoh Subjective Notes: Conditional Voluntary Interim History: The nursing staff reported no changes in his mental status fully compliant with treatment. On interview the patient denies new symptoms, content with current treatment, waiting for placement. Mental Status Exam Mental Status Exam Patient Appearance: Well Grooomed Patient Orientation: Person, Place and Situation Level of Consciousness: Awake and Appropriate Patient Behavior: Appropriate and Cooperative Mood Description: Calm Affect Description: Constricted Ability to Follow Directions: Good Speech Pattern: Clear Hallucinations: None Delusions: Not Present Thought Process: Linear Thought Content: positive for Circumstantial Judgement: Fair Diagnostics Vital Signs (24Hr): Vital Signs - 24 hr 06/11/23 20:20 06/12/23 07:20 06/12/23 09:20 Temperature 98.3 F 98.3 F Pulse Rate 65 54 67 Respiratory Rate 18 14 Blood Pressure 112/65 161/71 H Pulse Oximetry 96 96 Oxygen Delivery Method Room Air Room Air BMI result Body Mass Index 28.7 Labs 05/30/23 11:29 06/01/23 08:28 Imaging Radiology Impressions: ITS Impressions Chest X-Ray 05/30/23 11:42 IMPRESSION: No acute intrathoracic disease. Incidental findings as described above. Chest CTA 05/30/23 12:37 IMPRESSION: 1. No evidence of pulmonary emboli. 2. Marked peribronchial thickening most prominent at the lung bases. 3. 2 and 3 mm lung nodules right middle lobe. No follow-up needed. VTE: negative. According to the UPDATED 2017 Fleischner Society recommendations, the advised follow-up imaging for solid nodules <6 mm in the middle/lower lobes is no routine follow up. Medications Medications Current Medications Acetaminophen (Acetaminophen 325 Mg Tablet) 650 mg PO Q6H PRN PRN Reason: Headache/Pain Mild Scale (1-3) Last Admin: 06/12/23 09:09 Dose: 650 mg Al Hydroxide/Mg Hydroxide (Magnesium Hydrox/Alum Hydrox 30 Ml Oral.Susp) 30 ml PO Q6H PRN PRN Reason: Heartburn/Nausea Last Admin: 06/11/23 21:11 Dose: 30 ml Aspirin (Aspirin Enteric Coated 81 Mg Tablet.Dr) 81 mg PO DAILY [facility] Last Admin: 06/12/23 08:56 Dose: 81 mg Atorvastatin Calcium (Atorvastatin Calcium 40 Mg Tablet) 40 mg PO DAILY [facility] Last Admin: 06/12/23 08:56 Dose: 40 mg Buspirone HCl (Buspirone Hcl 5 Mg Tablet) 15 mg PO TID [facility] Last Admin: 06/12/23 08:55 Dose: 15 mg Celecoxib (Celecoxib 100 Mg Capsule) 100 mg PO BID [facility] Last Admin: 06/12/23 08:56 Dose: 100 mg Clonidine HCl (Clonidine Hcl 0.1 Mg Tablet) 0.1 mg PO DAILY PRN; Protocol PRN Reason: Anxiety Famotidine (Famotidine 20 Mg Tablet) 20 mg PO DAILY [facility] Last Admin: 06/12/23 08:55 Dose: 20 mg Fluoxetine HCl (Fluoxetine Hcl 20 Mg Capsule) 40 mg PO DAILY [facility] Last Admin: 06/12/23 08:56 Dose: 40 mg Hydroxyzine HCl (Hydroxyzine Hcl 25 Mg Tablet) 25 mg PO Q6H PRN PRN Reason: Anxiety Last Admin: 06/11/23 20:22 Dose: 25 mg Magnesium Hydroxide (Milk Of Magnesia 30 Ml Oral.Susp) 30 ml PO DAILY PRN PRN Reason: Constipation Melatonin (Melatonin 3 Mg Tablet) 9 mg PO BEDTIME PRN PRN Reason: Insomnia Last Admin: 06/11/23 20:23 Dose: 9 mg Metoprolol Tartrate (Metoprolol Tartrate 25 Mg Tablet) 25 mg PO BID [facility]; Protocol Last Admin: 06/12/23 09:21 Dose: 25 mg Naltrexone HCl (Naltrexone Hcl 50 Mg Tablet) 50 mg PO DAILY [facility] Last Admin: 06/12/23 08:56 Dose: 50 mg Nicotine (Nicotine 7 Mg Patch.Td24) 7 mg TRANSDERMA DAILY [facility] Last Admin: 06/12/23 08:54 Dose: 7 mg Nicotine Polacrilex (Nicotine Polacrilex 2 Mg Gum) 4 mg BUCCAL Q2H PRN PRN Reason: Nicotine Cravings Quetiapine Fumarate (Quetiapine Fumarate 50 Mg Tablet) 50 mg PO BEDTIME PRN PRN Reason: insomnia Last Admin: 06/11/23 20:22 Dose: 50 mg Quetiapine Fumarate (Quetiapine Fumarate 50 Mg Tablet) 150 mg PO BEDTIME [facility] Last Admin: 06/11/23 20:22 Dose: 150 mg Allergies Allergies Allergy/AdvReac Type Severity Reaction Status Date / Time No Known Allergies Allergy Verified 05/30/23 11:36 Assessment & Plan Assessment & Plan (1) Major depression, recurrent, chronic: Status: Acute Code(s): F33.9 - Major depressive disorder, recurrent, unspecified (2) Adjustment disorder: Status: Acute Code(s): F43.20 - Adjustment disorder, unspecified (3) Alcohol use disorder: Status: Acute Code(s): F10.90 - Alcohol use, unspecified, uncomplicated Plan continue phenobarb taper restart/continue usual outpt regimen refer for rehab 06/02/23 cont plan of care 06/03/23 Detox is proceeding without complications. Pt reports an increase in anxiety, worry, depressive sx due to the unknown factor in his discharge planning and possibly needing to discharge to the street. He reports he will attempt suicide by running in front of a vehicle if discharged to the street. He is cooperative with [facility] application process and is wanting a program to re-establish his sobriety so he may return to his life and find a job. Plan: Increase Buspirone to 15 mg tid from 10 mg tid. [facility] bed search. 06/03: continue current tx plan. 06/04: continue tx plan. 06/05: discharge-dependent SI expressed. awaiting acceptance to rehab. anxious. continue current mgmt. 06/06: discharge-dependent SI. awaiting insurance change so pt may attend rehab. anxious. continue current mgmt. 06/07: discharge-dependent SI. awaiting insurance change so pt may attend rehab. anxious. increase HS seroquel from 75 mg to 100 mg due to insomnia. 06/08: awaiting insurance change so pt may attend rehab. anxious. add seroquel 50 QHS PRN insomnia. 06/09: awaiting insurance change so pt may attend rehab. anxious. add seroquel 150 QHS for insomnia. add famotidine 20 daily for GERD Sx. keep same treatment. 06/11 keep same treatment Reason for continued inpatient stay Substantial Risk for: inability to function, rapid decompensation and med/psych decompensation Time Spent With Patient Time: Total time managing care of this patient today __20__ minutes.
[2023-06-12 20:05] VITALS: BP 111/62; PULSE 66; RESP 16; TEMP 36.6; O2SAT 96
[2023-06-12] MEDS: QUEtiapine Fumarate 50 MG TABLET 150 MG PO (20:35)
[2023-06-12] MEDS: Melatonin 3 MG TABLET 9 MG PO (20:37)
[2023-06-12] MEDS: QUEtiapine Fumarate 50 MG TABLET PO (20:38)
[2023-06-12] MEDS: Magnesium Hydrox/Alum Hydrox 30 ML ORAL.SUSP PO (21:51)
[2023-06-13 07:45] VITALS: BP 137/68; PULSE 52; RESP 16; TEMP 36.7; O2SAT 96
[2023-06-13] MEDS: Nicotine 7 MG PATCH.TD24 TRANSDERMA (08:52)
[2023-06-13] MEDS: Famotidine 20 MG TABLET PO (08:53)
[2023-06-13] MEDS: Naltrexone HCl 50 MG TABLET PO (08:53)
[2023-06-13] MEDS: FLUoxetine HCl 20 MG CAPSULE 40 MG PO (08:53)
[2023-06-13] MEDS: Atorvastatin Calcium 40 MG TABLET PO (08:53)
[2023-06-13] MEDS: Aspirin Enteric Coated 81 MG TABLET.DR PO (08:54)
[2023-06-13] MEDS: busPIRone HCl 5 MG TABLET 15 MG PO ×3 (08:55→20:10)
[2023-06-13] MEDS: Celecoxib 100 MG CAPSULE PO ×2 (08:55→20:10)
[2023-06-13] MEDS: Acetaminophen 325 MG TABLET 650 MG PO ×2 (09:00→14:33)
[2023-06-13 10:22] VITALS: BP 105/63; PULSE 55; TEMP 36.3; O2SAT 96
--- NOTE | 2023-06-13 14:28 | P.PNPSI_ITS ---
Subjective Subjective Date of Service: 06/13/23 Reason For Visit: si / etoh Interim History: calm, cooperative. no change in presentation. states he is sleeping well. awaiting news on dispo. per staff, using PRN seroquel, tylenol, hydroxyzine. no issues. metoprolol held this morning due to bradycardia. Mental Status Exam Mental Status Exam Narrative: Pt is alert and oriented; behavior is cooperative, friendly and calm; dressed in casual attire; mood is described as ok ; eye contact appropriate; Speech is normal rate, volume and prosody and not pressured; thought process is organized and goal directed; Thought content is on tx; no SI/HI. no AVH expressed. Diagnostics Vital Signs (24Hr): Vital Signs - 24 hr 06/12/23 20:05 06/13/23 07:45 06/13/23 10:22 Temperature 98 F 98.0 F 97.3 F Pulse Rate 66 52 55 Respiratory Rate 16 16 Blood Pressure 111/62 137/68 105/63 Pulse Oximetry 96 96 96 Oxygen Delivery Method Room Air Room Air Room Air BMI result Body Mass Index 28.7 Labs 05/30/23 11:29 06/01/23 08:28 Imaging Radiology Impressions: ITS Impressions Chest X-Ray 05/30/23 11:42 IMPRESSION: No acute intrathoracic disease. Incidental findings as described above. Chest CTA 05/30/23 12:37 IMPRESSION: 1. No evidence of pulmonary emboli. 2. Marked peribronchial thickening most prominent at the lung bases. 3. 2 and 3 mm lung nodules right middle lobe. No follow-up needed. VTE: negative. According to the UPDATED 2017 Fleischner Society recommendations, the advised follow-up imaging for solid nodules <6 mm in the middle/lower lobes is no routine follow up. Medications Medications Current Medications Acetaminophen (Acetaminophen 325 Mg Tablet) 650 mg PO Q6H PRN PRN Reason: Headache/Pain Mild Scale (1-3) Last Admin: 06/13/23 09:00 Dose: 650 mg Al Hydroxide/Mg Hydroxide (Magnesium Hydrox/Alum Hydrox 30 Ml Oral.Susp) 30 ml PO Q6H PRN PRN Reason: Heartburn/Nausea Last Admin: 06/12/23 21:51 Dose: 30 ml Aspirin (Aspirin Enteric Coated 81 Mg Tablet.Dr) 81 mg PO DAILY [facility] Last Admin: 06/13/23 08:54 Dose: 81 mg Atorvastatin Calcium (Atorvastatin Calcium 40 Mg Tablet) 40 mg PO DAILY COUNTS [facility]CLUDE 234 BEDS AT [facility] Last Admin: 06/13/23 08:53 Dose: 40 mg Buspirone HCl (Buspirone Hcl 5 Mg Tablet) 15 mg PO TID COUNTS INCLUDE 234 BEDS AT THE [facility] Last Admin: 06/13/23 08:55 Dose: 15 mg Celecoxib (Celecoxib 100 Mg Capsule) 100 mg PO BID COUNTS INCLUDE 234 BEDS AT THE [facility] Last Admin: 06/13/23 08:55 Dose: 100 mg Clonidine HCl (Clonidine Hcl 0.1 Mg Tablet) 0.1 mg PO DAILY PRN; Protocol PRN Reason: Anxiety Famotidine (Famotidine 20 Mg Tablet) 20 mg PO DAILY COUNTS INCLUDE 234 BEDS AT [facility] Last Admin: 06/13/23 08:53 Dose: 20 mg Fluoxetine HCl (Fluoxetine Hcl 20 Mg Capsule) 40 mg PO DAILY COUNTS INCLUDE 234 BEDS AT [facility] Last Admin: 06/13/23 08:53 Dose: 40 mg Hydroxyzine HCl (Hydroxyzine Hcl 25 Mg Tablet) 25 mg PO Q6H PRN PRN Reason: Anxiety Last Admin: 06/11/23 20:22 Dose: 25 mg Magnesium Hydroxide (Milk Of Magnesia 30 Ml Oral.Susp) 30 ml PO DAILY PRN PRN Reason: Constipation Melatonin (Melatonin 3 Mg Tablet) 9 mg PO BEDTIME PRN PRN Reason: Insomnia Last Admin: 06/12/23 20:37 Dose: 9 mg Metoprolol Tartrate (Metoprolol Tartrate 25 Mg Tablet) 25 mg PO BID COUNTS [facility]CLUDE 234 BEDS AT [facility]; Protocol Last Admin: 06/13/23 10:23 Dose: Not Given Naltrexone HCl (Naltrexone Hcl 50 Mg Tablet) 50 mg PO DAILY COUNTS [facility]CLUDE 234 BEDS AT [facility] Last Admin: 06/13/23 08:53 Dose: 50 mg Nicotine (Nicotine 7 Mg Patch.Td24) 7 mg TRANSDERMA DAILY COUNTS INCLUDE 234 BEDS AT [facility] Last Admin: 06/13/23 08:52 Dose: 7 mg Nicotine Polacrilex (Nicotine Polacrilex 2 Mg Gum) 4 mg BUCCAL Q2H PRN PRN Reason: Nicotine Cravings Quetiapine Fumarate (Quetiapine Fumarate 50 Mg Tablet) 50 mg PO BEDTIME PRN PRN Reason: insomnia Last Admin: 06/12/23 20:38 Dose: 50 mg Quetiapine Fumarate (Quetiapine Fumarate 50 Mg Tablet) 150 mg PO BEDTIME COUNTS INCLUDE 234 BEDS AT [facility] Last Admin: 06/12/23 20:35 Dose: 150 mg Allergies Allergies Allergy/AdvReac Type Severity Reaction Status Date / Time No Known Allergies Allergy Verified 05/30/23 11:36 Assessment & Plan Assessment & Plan (1) Major depression, recurrent, chronic: Status: Acute Code(s): F33.9 - Major depressive disorder, recurrent, unspecified (2) Adjustment disorder: Status: Acute Code(s): F43.20 - Adjustment disorder, unspecified (3) Alcohol use disorder: Status: Acute Code(s): F10.90 - Alcohol use, unspecified, uncomplicated Plan continue phenobarb taper restart/continue usual outpt regimen refer for rehab 06/02/23 cont plan of care 06/03/23 Detox is proceeding without complications. Pt reports an increase in anxiety, worry, depressive sx due to the unknown factor in his discharge planning and possibly needing to discharge to the street. He reports he will attempt suicide by running in front of a vehicle if discharged to the street. He is cooperative with [facility] application process and is wanting a program to re-establish his sobriety so he may return to his life and find a job. Plan: Increase Buspirone to 15 mg tid from 10 mg tid. [facility] bed search. 06/03: continue current tx plan. 06/04: continue tx plan. 06/05: discharge-dependent SI expressed. awaiting acceptance to rehab. anxious. continue current mgmt. 06/06: discharge-dependent SI. awaiting insurance change so pt may attend rehab. anxious. continue current mgmt. 06/07: discharge-dependent SI. awaiting insurance change so pt may attend rehab. anxious. increase HS seroquel from 75 mg to 100 mg due to insomnia. 06/08: awaiting insurance change so pt may attend rehab. anxious. add seroquel 50 QHS PRN insomnia. 06/09: awaiting insurance change so pt may attend rehab. anxious. add seroquel 150 QHS for insomnia. add famotidine 20 daily for GERD Sx. keep same treatment. 06/11 keep same treatment 06/12: continue current mgmt. awaiting insurance changes and/or acceptance to rehab. pt reports present regimen is serving him well. Reason for continued inpatient stay Substantial Risk for: harm to self, inability to function and rapid decompensation Time Spent With Patient Time: Total time managing care of this patient today __25__ minutes.
[2023-06-13 19:45] VITALS: BP 135/63; PULSE 66; RESP 16; TEMP 36.8; O2SAT 95
[2023-06-13] MEDS: QUEtiapine Fumarate 50 MG TABLET 150 MG PO (20:08)
[2023-06-13] MEDS: Melatonin 3 MG TABLET 9 MG PO (20:09)
[2023-06-13] MEDS: Metoprolol Tartrate 25 MG TABLET PO (20:10)
[2023-06-13] MEDS: QUEtiapine Fumarate 50 MG TABLET PO (20:11)
[2023-06-14 07:37] VITALS: BP 113/52; PULSE 51; RESP 14; TEMP 36.8; O2SAT 95
[2023-06-14] MEDS: busPIRone HCl 5 MG TABLET 15 MG PO (08:55)
[2023-06-14] MEDS: Naltrexone HCl 50 MG TABLET PO (08:56)
[2023-06-14] MEDS: Atorvastatin Calcium 40 MG TABLET PO (08:56)
[2023-06-14] MEDS: Aspirin Enteric Coated 81 MG TABLET.DR PO (08:56)
[2023-06-14] MEDS: FLUoxetine HCl 20 MG CAPSULE 40 MG PO (08:56)
[2023-06-14] MEDS: Celecoxib 100 MG CAPSULE PO ×2 (08:56→20:25)
[2023-06-14] MEDS: Famotidine 20 MG TABLET PO (08:57)
[2023-06-14] MEDS: Nicotine 7 MG PATCH.TD24 TRANSDERMA (08:57)
[2023-06-14] MEDS: Acetaminophen 325 MG TABLET 650 MG PO ×2 (09:52→20:25)
[2023-06-14] MEDS: busPIRone HCl 10 MG TABLET 20 MG PO ×2 (14:26→20:25)
--- NOTE | 2023-06-14 14:45 | HO.PSYCHPN ---
Subjective Subjective Date of Service: 06/14/23 Reason For Visit: si / etoh Interim History: stable, no change in presentation. feeling not ready to go yet. c/o anxiety, asks for buspar to be increased, also HS seroquel increased to 200 mg. per staff, depressed and anxious. constricted. eating. attending groups. social. getting seroquel PRN at HS. slept about 9 hours. Mental Status Exam Mental Status Exam Narrative: Pt is alert and oriented; behavior is cooperative, friendly and calm; dressed in casual attire; mood is described as anxious ; eye contact appropriate; Speech is normal rate, volume and prosody and not pressured; thought process is organized and goal directed; Thought content is on tx; no SI/HI/AVH. Diagnostics Vital Signs (24Hr): Vital Signs - 24 hr 06/13/23 19:45 06/14/23 07:37 Temperature 98.2 F 98.2 F Pulse Rate 66 51 Respiratory Rate 16 14 Blood Pressure 135/63 113/52 L Pulse Oximetry 95 95 Oxygen Delivery Method Room Air Room Air BMI result Body Mass Index 28.7 Labs 05/30/23 11:29 06/01/23 08:28 Imaging Radiology Impressions: ITS Impressions Chest X-Ray 05/30/23 11:42 IMPRESSION: No acute intrathoracic disease. Incidental findings as described above. Chest CTA 05/30/23 12:37 IMPRESSION: 1. No evidence of pulmonary emboli. 2. Marked peribronchial thickening most prominent at the lung bases. 3. 2 and 3 mm lung nodules right middle lobe. No follow-up needed. VTE: negative. According to the UPDATED 2017 Fleischner Society recommendations, the advised follow-up imaging for solid nodules <6 mm in the middle/lower lobes is no routine follow up. Medications Medications Current Medications Acetaminophen (Acetaminophen 325 Mg Tablet) 650 mg PO Q6H PRN PRN Reason: Headache/Pain Mild Scale (1-3) Last Admin: 06/14/23 09:52 Dose: 650 mg Al Hydroxide/Mg Hydroxide (Magnesium Hydrox/Alum Hydrox 30 Ml Oral.Susp) 30 ml PO Q6H PRN PRN Reason: Heartburn/Nausea Last Admin: 06/12/23 21:51 Dose: 30 ml Aspirin (Aspirin Enteric Coated 81 Mg Tablet.Dr) 81 mg PO DAILY [facility] Last Admin: 06/14/23 08:56 Dose: 81 mg Atorvastatin Calcium (Atorvastatin Calcium 40 Mg Tablet) 40 mg PO DAILY [facility] Last Admin: 06/14/23 08:56 Dose: 40 mg Buspirone HCl (Buspirone Hcl 10 Mg Tablet) 20 mg PO TID [facility] Last Admin: 06/14/23 14:26 Dose: 20 mg Celecoxib (Celecoxib 100 Mg Capsule) 100 mg PO BID [facility] Last Admin: 06/14/23 08:56 Dose: 100 mg Clonidine HCl (Clonidine Hcl 0.1 Mg Tablet) 0.1 mg PO DAILY PRN; Protocol PRN Reason: Anxiety Famotidine (Famotidine 20 Mg Tablet) 20 mg PO DAILY [facility] Last Admin: 06/14/23 08:57 Dose: 20 mg Fluoxetine HCl (Fluoxetine Hcl 20 Mg Capsule) 40 mg PO DAILY [facility] Last Admin: 06/14/23 08:56 Dose: 40 mg Hydroxyzine HCl (Hydroxyzine Hcl 25 Mg Tablet) 25 mg PO Q6H PRN PRN Reason: Anxiety Last Admin: 06/11/23 20:22 Dose: 25 mg Magnesium Hydroxide (Milk Of Magnesia 30 Ml Oral.Susp) 30 ml PO DAILY PRN PRN Reason: Constipation Melatonin (Melatonin 3 Mg Tablet) 9 mg PO BEDTIME PRN PRN Reason: Insomnia Last Admin: 06/13/23 20:09 Dose: 9 mg Metoprolol Tartrate (Metoprolol Tartrate 25 Mg Tablet) 25 mg PO BID [facility]; Protocol Last Admin: 06/14/23 08:57 Dose: Not Given Naltrexone HCl (Naltrexone Hcl 50 Mg Tablet) 50 mg PO DAILY [facility] Last Admin: 06/14/23 08:56 Dose: 50 mg Nicotine (Nicotine 7 Mg Patch.Td24) 7 mg TRANSDERMA DAILY [facility] Last Admin: 06/14/23 08:57 Dose: 7 mg Nicotine Polacrilex (Nicotine Polacrilex 2 Mg Gum) 4 mg BUCCAL Q2H PRN PRN Reason: Nicotine Cravings Quetiapine Fumarate (Quetiapine Fumarate 50 Mg Tablet) 50 mg PO BEDTIME PRN PRN Reason: insomnia Last Admin: 06/13/23 20:11 Dose: 50 mg Quetiapine Fumarate (Quetiapine Fumarate 200 Mg Tablet) 200 mg PO BEDTIME [facility] Allergies Allergies Allergy/AdvReac Type Severity Reaction Status Date / Time No Known Allergies Allergy Verified 05/30/23 11:36 Assessment & Plan Assessment & Plan (1) Major depression, recurrent, chronic: Status: Acute Code(s): F33.9 - Major depressive disorder, recurrent, unspecified (2) Adjustment disorder: Status: Acute Code(s): F43.20 - Adjustment disorder, unspecified (3) Alcohol use disorder: Status: Acute Code(s): F10.90 - Alcohol use, unspecified, uncomplicated Plan continue phenobarb taper restart/continue usual outpt regimen refer for rehab 06/02/23 cont plan of care 06/03/23 Detox is proceeding without complications. Pt reports an increase in anxiety, worry, depressive sx due to the unknown factor in his discharge planning and possibly needing to discharge to the street. He reports he will attempt suicide by running in front of a vehicle if discharged to the street. He is cooperative with [facility] application process and is wanting a program to re-establish his sobriety so he may return to his life and find a job. Plan: Increase Buspirone to 15 mg tid from 10 mg tid. [facility] bed search. 06/03: continue current tx plan. 06/04: continue tx plan. 06/05: discharge-dependent SI expressed. awaiting acceptance to rehab. anxious. continue current mgmt. 06/06: discharge-dependent SI. awaiting insurance change so pt may attend rehab. anxious. continue current mgmt. 06/07: discharge-dependent SI. awaiting insurance change so pt may attend rehab. anxious. increase HS seroquel from 75 mg to 100 mg due to insomnia. 06/08: awaiting insurance change so pt may attend rehab. anxious. add seroquel 50 QHS PRN insomnia. 06/09: awaiting insurance change so pt may attend rehab. anxious. add seroquel 150 QHS for insomnia. add famotidine 20 daily for GERD Sx. keep same treatment. 06/11 keep same treatment 06/12: continue current mgmt. awaiting insurance changes and/or acceptance to rehab. pt reports present regimen is serving him well. 06/13: no change in presentation. increase HS seroquel to 200 mg, increase buspar to 20 mg TID for anxiety. awaiting dispo. Reason for continued inpatient stay Substantial Risk for: inability to function and rapid decompensation Time Spent With Patient Time: Total time managing care of this patient today __25__ minutes.
[2023-06-14 20:05] VITALS: BP 152/70; PULSE 70; RESP 18; TEMP 36.6; O2SAT 97
[2023-06-14] MEDS: QUEtiapine Fumarate 200 MG TABLET PO (20:25)
[2023-06-14] MEDS: Metoprolol Tartrate 25 MG TABLET PO (20:25)
[2023-06-14] MEDS: Melatonin 3 MG TABLET 9 MG PO (20:25)
[2023-06-14] MEDS: QUEtiapine Fumarate 50 MG TABLET PO (20:25)
[2023-06-14] MEDS: Magnesium Hydrox/Alum Hydrox 30 ML ORAL.SUSP PO (21:49)
[2023-06-14] MEDS: hydrOXYzine HCL 25 MG TABLET PO (21:56)
[2023-06-15 06:00] VITALS: BP 135/59; PULSE 53; RESP 18; TEMP 36.8; O2SAT 96
[2023-06-15] MEDS: Nicotine 7 MG PATCH.TD24 TRANSDERMA (08:18)
[2023-06-15] MEDS: Atorvastatin Calcium 40 MG TABLET PO (08:19)
[2023-06-15] MEDS: Aspirin Enteric Coated 81 MG TABLET.DR PO (08:19)
[2023-06-15] MEDS: Celecoxib 100 MG CAPSULE PO ×2 (08:19→20:19)
[2023-06-15] MEDS: Naltrexone HCl 50 MG TABLET PO (08:19)
[2023-06-15] MEDS: Metoprolol Tartrate 25 MG TABLET PO ×2 (08:20→20:18)
[2023-06-15] MEDS: FLUoxetine HCl 20 MG CAPSULE 40 MG PO (08:20)
[2023-06-15] MEDS: Famotidine 20 MG TABLET PO (08:20)
[2023-06-15] MEDS: busPIRone HCl 10 MG TABLET 20 MG PO ×3 (08:20→20:19)
--- NOTE | 2023-06-15 12:10 | P.PNPSI_ITS ---
Subjective Subjective Date of Service: 06/15/23 Reason For Visit: si / etoh Interim History: calm, cooperative, stable. slept well, some anxiety. no change in presentation. informed of plan for tuesday discharge. 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 per staff, attending groups, taking meds. talking about applying for jobs. slept 8 hours. Mental Status Exam Mental Status Exam Narrative: Pt is alert and oriented; behavior is cooperative, friendly and calm; dressed in casual attire; mood is described as pretty good and a little anxious; eye contact appropriate; Speech is normal rate, volume and prosody and not pressured; thought process is organized and goal directed; Thought content is on tx; no SI/HI/AVH expressed. Diagnostics Vital Signs (24Hr): Vital Signs - 24 hr 06/14/23 20:05 06/15/23 06:00 Temperature 97.8 F 98.2 F Pulse Rate 70 53 Respiratory Rate 18 18 Blood Pressure 152/70 H 135/59 L Pulse Oximetry 97 96 Oxygen Delivery Method Room Air Room Air BMI result Body Mass Index 28.7 Labs 05/30/23 11:29 06/01/23 08:28 Imaging Radiology Impressions: ITS Impressions Chest X-Ray 05/30/23 11:42 IMPRESSION: No acute intrathoracic disease. Incidental findings as described above. Chest CTA 05/30/23 12:37 IMPRESSION: 1. No evidence of pulmonary emboli. 2. Marked peribronchial thickening most prominent at the lung bases. 3. 2 and 3 mm lung nodules right middle lobe. No follow-up needed. VTE: negative. According to the UPDATED 2017 Fleischner Society recommendations, the advised follow-up imaging for solid nodules <6 mm in the middle/lower lobes is no routine follow up. Medications Medications Current Medications Acetaminophen (Acetaminophen 325 Mg Tablet) 650 mg PO Q6H PRN PRN Reason: Headache/Pain Mild Scale (1-3) Last Admin: 06/14/23 20:25 Dose: 650 mg Al Hydroxide/Mg Hydroxide (Magnesium Hydrox/Alum Hydrox 30 Ml Oral.Susp) 30 ml PO Q6H PRN PRN Reason: Heartburn/Nausea Last Admin: 06/14/23 21:49 Dose: 30 ml Aspirin (Aspirin Enteric Coated 81 Mg Tablet.) 81 mg PO DAILY [facility] Last Admin: 06/15/23 08:19 Dose: 81 mg Atorvastatin Calcium (Atorvastatin Calcium 40 Mg Tablet) 40 mg PO DAILY [facility] Last Admin: 06/15/23 08:19 Dose: 40 mg Buspirone HCl (Buspirone Hcl 10 Mg Tablet) 20 mg PO TID [facility] Last Admin: 06/15/23 08:20 Dose: 20 mg Celecoxib (Celecoxib 100 Mg Capsule) 100 mg PO BID [facility] Last Admin: 06/15/23 08:19 Dose: 100 mg Clonidine HCl (Clonidine Hcl 0.1 Mg Tablet) 0.1 mg PO DAILY PRN; Protocol PRN Reason: Anxiety Famotidine (Famotidine 20 Mg Tablet) 20 mg PO DAILY [facility] Last Admin: 06/15/23 08:20 Dose: 20 mg Fluoxetine HCl (Fluoxetine Hcl 20 Mg Capsule) 40 mg PO DAILY [facility] Last Admin: 06/15/23 08:20 Dose: 40 mg Hydroxyzine HCl (Hydroxyzine Hcl 25 Mg Tablet) 25 mg PO Q6H PRN PRN Reason: Anxiety Last Admin: 06/14/23 21:56 Dose: 25 mg Magnesium Hydroxide (Milk Of Magnesia 30 Ml Oral.Susp) 30 ml PO DAILY PRN PRN Reason: Constipation Melatonin (Melatonin 3 Mg Tablet) 9 mg PO BEDTIME PRN PRN Reason: Insomnia Last Admin: 06/14/23 20:25 Dose: 9 mg Metoprolol Tartrate (Metoprolol Tartrate 25 Mg Tablet) 25 mg PO BID [facility]; Protocol Last Admin: 06/15/23 08:20 Dose: 25 mg Naltrexone HCl (Naltrexone Hcl 50 Mg Tablet) 50 mg PO DAILY [facility] Last Admin: 06/15/23 08:19 Dose: 50 mg Nicotine (Nicotine 7 Mg Patch.Td24) 7 mg TRANSDERMA DAILY [facility] Last Admin: 06/15/23 08:18 Dose: 7 mg Nicotine Polacrilex (Nicotine Polacrilex 2 Mg Gum) 4 mg BUCCAL Q2H PRN PRN Reason: Nicotine Cravings Quetiapine Fumarate (Quetiapine Fumarate 50 Mg Tablet) 50 mg PO BEDTIME PRN PRN Reason: insomnia Last Admin: 06/14/23 20:25 Dose: 50 mg Quetiapine Fumarate (Quetiapine Fumarate 200 Mg Tablet) 200 mg PO BEDTIME [facility] Last Admin: 06/14/23 20:25 Dose: 200 mg Allergies Allergies Allergy/AdvReac Type Severity Reaction Status Date / Time No Known Allergies Allergy Verified 05/30/23 11:36 Assessment & Plan Assessment & Plan (1) Major depression, recurrent, chronic: Status: Acute Code(s): F33.9 - Major depressive disorder, recurrent, unspecified (2) Adjustment disorder: Status: Acute Code(s): F43.20 - Adjustment disorder, unspecified (3) Alcohol use disorder: Status: Acute Code(s): F10.90 - Alcohol use, unspecified, uncomplicated Plan continue phenobarb taper restart/continue usual outpt regimen refer for rehab 06/02/23 cont plan of care 06/03/23 Detox is proceeding without complications. Pt reports an increase in anxiety, worry, depressive sx due to the unknown factor in his discharge planning and possibly needing to discharge to the street. He reports he will attempt suicide by running in front of a vehicle if discharged to the street. He is cooperative with [facility] application process and is wanting a program to re-establish his sobriety so he may return to his life and find a job. Plan: Increase Buspirone to 15 mg tid from 10 mg tid. [facility] bed search. 06/03: continue current tx plan. 06/04: continue tx plan. 06/05: discharge-dependent SI expressed. awaiting acceptance to rehab. anxious. continue current mgmt. 06/06: discharge-dependent SI. awaiting insurance change so pt may attend rehab. anxious. continue current mgmt. 06/07: discharge-dependent SI. awaiting insurance change so pt may attend rehab. anxious. increase HS seroquel from 75 mg to 100 mg due to insomnia. 06/08: awaiting insurance change so pt may attend rehab. anxious. add seroquel 50 QHS PRN insomnia. 06/09: awaiting insurance change so pt may attend rehab. anxious. add seroquel 150 QHS for insomnia. add famotidine 20 daily for GERD Sx. keep same treatment. 06/11 keep same treatment 06/12: continue current mgmt. awaiting insurance changes and/or acceptance to rehab. pt reports present regimen is serving him well. 06/13: no change in presentation. increase HS seroquel to 200 mg, increase buspar to 20 mg TID for anxiety. awaiting dispo. 06/14: mood improved, anxiety attenuated. aftercare planning underway. slept well. continue current mgmt. will discharge tuesday if no rehab bed is forthcoming. Reason for continued inpatient stay Substantial Risk for: inability to function and rapid decompensation Time Spent With Patient Time: Total time managing care of this patient today __25__ minutes.
[2023-06-15] MEDS: Acetaminophen 325 MG TABLET 650 MG PO ×2 (15:00→20:56)
[2023-06-15 20:02] VITALS: BP 147/70; PULSE 65; RESP 16; TEMP 36.4; O2SAT 95
[2023-06-15] MEDS: QUEtiapine Fumarate 200 MG TABLET PO (20:18)
[2023-06-15] MEDS: Melatonin 3 MG TABLET 9 MG PO (20:18)
[2023-06-15] MEDS: QUEtiapine Fumarate 50 MG TABLET PO (20:18)
[2023-06-15] MEDS: Magnesium Hydrox/Alum Hydrox 30 ML ORAL.SUSP PO (20:20)
[2023-06-16 06:00] VITALS: BP 99/47; PULSE 46; RESP 16; TEMP 36.4; O2SAT 93
[2023-06-16] MEDS: Nicotine 7 MG PATCH.TD24 TRANSDERMA (09:26)
[2023-06-16] MEDS: Celecoxib 100 MG CAPSULE PO ×2 (09:27→20:45)
[2023-06-16] MEDS: Aspirin Enteric Coated 81 MG TABLET.DR PO (09:27)
[2023-06-16] MEDS: Naltrexone HCl 50 MG TABLET PO (09:27)
[2023-06-16] MEDS: Famotidine 20 MG TABLET PO (09:27)
[2023-06-16] MEDS: FLUoxetine HCl 20 MG CAPSULE 40 MG PO (09:27)
[2023-06-16] MEDS: Atorvastatin Calcium 40 MG TABLET PO (09:28)
[2023-06-16] MEDS: busPIRone HCl 10 MG TABLET 20 MG PO ×3 (09:28→20:44)
[2023-06-16] MEDS: Metoprolol Tartrate 25 MG TABLET PO ×2 (10:20→20:46)
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
[2023-06-16] MEDS: Magnesium Hydrox/Alum Hydrox 30 ML ORAL.SUSP PO ×2 (16:15→22:01)
[2023-06-16 20:38] VITALS: BP 135/69; PULSE 63; RESP 16; TEMP 36.9; O2SAT 96
[2023-06-16] MEDS: QUEtiapine Fumarate 200 MG TABLET PO (20:46)
[2023-06-16] MEDS: QUEtiapine Fumarate 50 MG TABLET PO (20:46)
[2023-06-16] MEDS: Melatonin 3 MG TABLET 9 MG PO (20:47)
[2023-06-16] MEDS: hydrOXYzine HCL 25 MG TABLET PO (20:47)
[2023-06-17 06:00] VITALS: BP 143/58; PULSE 56; RESP 14; TEMP 36.9; O2SAT 96
[2023-06-17] MEDS: Acetaminophen 325 MG TABLET 650 MG PO (09:07)
[2023-06-17] MEDS: FLUoxetine HCl 20 MG CAPSULE 40 MG PO (09:08)
[2023-06-17] MEDS: Nicotine 7 MG PATCH.TD24 TRANSDERMA (09:08)
[2023-06-17] MEDS: busPIRone HCl 10 MG TABLET 20 MG PO (09:08)
[2023-06-17] MEDS: Famotidine 20 MG TABLET PO (09:09)
[2023-06-17] MEDS: Atorvastatin Calcium 40 MG TABLET PO (09:10)
[2023-06-17] MEDS: Aspirin Enteric Coated 81 MG TABLET.DR PO (09:10)
[2023-06-17] MEDS: Naltrexone HCl 50 MG TABLET PO (09:10)
[2023-06-17] MEDS: Celecoxib 100 MG CAPSULE PO (09:10)
== END 2023-06-17 11:30 | disposition home or self-care (01) | DRG 885 ==
LOC: HO.ED 17:32 → HO.PADLT16 05-31 13:12
PROVIDERS: Admitting Provider Psychiatry & Neurology Psychiatry; Emergency Provider Emergency Medicine; Visit Provider Psychiatry & Neurology Psychiatry
DX: F33.9 Major depressive disorder, recurrent, unspecified (principal); R45.851 Suicidal ideations; Z59.01 Sheltered homelessness; F10.930 Alcohol use, unspecified with withdrawal, uncomplicated; F43.20 Adjustment disorder, unspecified; I25.10 Atherosclerotic heart disease of native coronary artery without angina pectoris; Z20.822 Contact with and (suspected) exposure to COVID-19; Z95.1 Presence of aortocoronary bypass graft; Z91.51 Personal history of suicidal behavior; Z95.2 Presence of prosthetic heart valve; Z87.891 Personal history of nicotine dependence; Z79.82 Long term (current) use of aspirin; Z79.899 Other long term (current) drug therapy
CPT/HCPCS: 0241U; 36415; 71045; 71275; 80048; 80053; 80061; 80076; 80143; 80179; 80307; 82607; 82746; 83036; 83690; 83735; 83880; 84439; 84443; 84484; 85025; 85379; 87635; 87651; 90686; 93005; 99285; J2560; J3411; J3475; Q9967; S9485

== ENCOUNTER → 2023-05-30 10:30 | Outpatient (BNV) | payer MEDICARE, SELFPAY | PROVIDERS: Emergency Provider Emergency Medicine; Visit Provider Internal Medicine | DX: R94.31 Abnormal electrocardiogram [ECG] [EKG] (principal) | CPT/HCPCS: 93010 ==

== ENCOUNTER → 2023-05-31 12:33 | Outpatient (BNV) | payer MEDICARE, SELFPAY | PROVIDERS: Admitting Provider Psychiatry & Neurology Psychiatry; Emergency Provider Emergency Medicine; Visit Provider Psychiatry & Neurology Psychiatry | DX: F33.2 Major depressive disorder, recurrent severe without psychotic features (principal); F43.20 Adjustment disorder, unspecified; F10.90 Alcohol use, unspecified, uncomplicated | CPT/HCPCS: 90792; 99231; 99232; 99239 ==

== ENCOUNTER → 2023-05-31 12:33 | Outpatient (BNV) | payer MEDICARE, SELFPAY | PROVIDERS: Admitting Provider Psychiatry & Neurology Psychiatry; Emergency Provider Emergency Medicine; Visit Provider Psychiatry & Neurology Psychiatry | DX: F33.2 Major depressive disorder, recurrent severe without psychotic features (principal); F10.930 Alcohol use, unspecified with withdrawal, uncomplicated; F43.20 Adjustment disorder, unspecified | CPT/HCPCS: 99232 ==

== ENCOUNTER 2023-07-03 14:25 | Emergency (ER) | payer MEDICARE, MEDICAID, SELFPAY ==
--- NOTE | 2023-07-03 | ECG_ITS ---
Test Reason : CP Blood Pressure : / mmHG Vent. Rate : 057 BPM Atrial Rate : 057 BPM P-R Int : 170 ms QRS Dur : 092 ms QT Int : 470 ms P-R-T Axes : 047 011 055 degrees QTc Int : 457 ms Sinus bradycardia Inferior infarct , age undetermined Possible Anterior infarct (cited on or before 25-MAY-2013) Abnormal ECG When compared with ECG of 30-MAY-2023 10:31, No significant change was found Referred By: Generic ED Physician Electronically Signed By:DOMONIQUE PHILLIPS MD
--- NOTE | ~2023-07-03 | US_ITS ---
EXAMINATION: US VENOUS ULTRASOUND WITH DOPPLER LOWER EXTREMITY, BILATERAL CLINICAL INFORMATION: Bilateral calf pain. COMPARISON: None available. TECHNIQUE: Ultrasound of the deep veins is performed from the hip to the calf with compression sonography and color and pulse Doppler assessment. Spectral analysis with color-flow imaging is performed. FINDINGS: RIGHT: There is normal venous compression and respiratory variation and augmented flow. The visualized common femoral vein, superficial femoral vein, profunda femoral vein, popliteal vein, and the trifurcation region shows no evidence of deep venous thrombosis. There is no significant popliteal fossa cyst. LEFT: There is normal venous compression and respiratory variation and augmented flow. The visualized common femoral vein, superficial femoral vein, profunda femoral vein, popliteal vein, and the trifurcation region shows no evidence of deep venous thrombosis. There is no significant popliteal fossa cyst. If the patient's symptoms persist, followup ultrasound in 5 days 7 days might be of value to exclude proximal propagation from a non-visualized calf vein. US/US venous duplex LE BI IMPRESSION: No DVT demonstrated in the bilateral lower extremity.
--- NOTE | ~2023-07-03 | XR_ITS ---
EXAMINATION: XR CHEST CLINICAL INFORMATION: Chest pain and generalized weakness. COMPARISON: Chest radiograph dated 05/30/2023. TECHNIQUE: Frontal view of the chest was obtained. FINDINGS: No significant abnormality is noted involving the heart, lungs, mediastinum, bony thorax or soft tissues. There are post CABG changes. Cervical orthopedic hardware and left cervical surgical clips are noted. There has been a resection of the distal right clavicle. XR/XR chest 1V IMPRESSION: Unremarkable examination.
[2023-07-03 14:27] VITALS: BP 100/51; BP 94/54; PULSE 57; PULSE 60; RESP 14; TEMP 37.2; O2SAT 94; BMI 28.6
[2023-07-03 14:35] VITALS: BP 100/51; PULSE 57; RESP 15; TEMP 37.2; O2SAT 93
--- NOTE | 2023-07-03 14:36 | PC.NURSE ---
Pt presents to ED via EMS from hotel room where he has been living for past 4 months. Pt reports generalized weakness with difficulty walking X3 days, pt reports multiple falls over past couple of days. Pt denies any LOC or head hits during these falls, reports it feels like his legs are giving out. Pt also reports left sided chest pain, intermittent, 6/10, X3 days, unable to describe the pain. Pt reports feeling depressed, uses alcohol daily (denies any today), denies hx of withdrawal seizures. Pt alert and oriented, breathing even and unlabored, skin warm and dry. Stroke exam neg, pt neg for unilateral weakness, slurred speech, facial droop or arm drift. Pt on bedside equipment monitor phototypesetting, sinus bradycardia.
[2023-07-03] MEDS: 0.9 % Sodium Chloride 1,000 ML 999 ML IV (14:51)
[2023-07-03 14:53] LABS: MANUAL DIFF FLAG NO
[2023-07-03 14:55] LABS: Basophils Percent Auto 0.3 % (0-2); Eosinophils Absolute Auto 0.3 X10*3/uL (0.0-0.4); Eosinophils Percent Auto 3.1 % (0-4); Hematocrit 40.1 % (42.0-52.0); Hemoglobin 13.6 g/dl (14.0-18.0); Imm Gran Abs Auto 0.03 X10*3/uL (0.00-0.03); Imm Gran Pct Auto 0.3 % (0.0-0.4); Lymphocytes Absolute Auto 1.7 X10*3/uL (1.2-4.9); Lymphocytes Percent Auto 17.8 % (20-40); Mean Corpuscular HGB Conc 33.9 g/dl (31.0-36.0); Mean Corpuscular Hemoglobin 29.8 pg (27.0-33.0); Mean Corpuscular Volume 87.9 fL (80.0-98.0); Mean Platelet Volume 9.6 fL (9.4-12.4); Monocytes Absolute Auto 0.8 X10*3/uL (0.1-1.2); Monocytes Percent Auto 8.7 % (2-11); Neutrophils Absolute Auto 6.6 x10*3/uL (2.0-8.3); Neutrophils Percent Auto 69.8 % (45-73); Red Blood Count 4.56 X10*6/uL (4.60-5.80); Red Cell Distribution Width 17.2 % (11.0-16.0); White Blood Count 9.5 X10*3/uL (4.8-10.8)
[2023-07-03 15:00] LABS: Platelet Count 147 X10*3/uL (160-400)
[2023-07-03 15:22] LABS: B Type Natriuretic Peptide 408 pg/mL (<100)
[2023-07-03 15:23] LABS: Troponin-I High Sensitivity 25.6 ng/L (<3.5-35.0)
[2023-07-03 15:37] LABS: Influenza A PCR NEGATIVE (Negative); Influenza B PCR NEGATIVE (Negative); Resp Syncy Virus RNA Qual PCR NEGATIVE (Negative); SARS COV2 PCR INHOUSE NEGATIVE (Negative)
[2023-07-03 15:38] LABS: Alanine Aminotransferase 28 U/L (0-40); Albumin Level 4.2 g/dL (3.5-5.0); Alkaline Phosphatase 58 U/L (39-117); Anion Gap 16 (12-20); Aspartate Amino Transferase 47 U/L (5-37); Bilirubin Direct 0.3 mg/dL (0.0-0.5); Bilirubin Total 1.2 mg/dL (0.0-1.0); Blood Urea Nitrogen 22 mg/dL (9-16); Calcium 9.3 mg/dL (8.4-10.2); Carbon Dioxide 22 mmol/L (22-29); Chloride 104 mmol/L (96-108); Creatinine Clr Calc Pharmacy 54.2; Estimated Glomerular Filt Rate 56; Glucose Random 107 mg/dL (60-115); Lipase 17 U/L (8-78); Potassium 4.7 mmol/L (3.3-5.1); Sodium 137 mmol/L (135-145); Total Protein 7.5 g/dL (6.5-8.0)
--- NOTE | 2023-07-03 15:42 | PC.NURSE ---
this rn assumed care of pt @ 1500 dr khan made aware of pt status pt awaiting to be seen by ed provider
--- NOTE | 2023-07-03 15:59 | ED_ITS ---
HPI - Weakness General Chief complaint: Psychiatric Symptoms Stated complaint: WEAKNESS PER EMS Time Seen by Provider: 07/03/23 15:59 Source: patient and RN notes reviewed Mode of arrival: ambulatory Limitations: no limitations History of Present Illness HPI Narrative: This is a 67-year-old male, PMH Of CAD s/p 4VCABG, valve replacement 5 months ago in [place], ETOH abuse, depression and prior SI attempts, who presents emergency department with complaints of generalized weakness, bilateral lower extremity calf pain, and intermittent chest pain for the last 3 days. Patient reports that the chest pain is constant, does not radiate. Does worsen with inspiration. He was seen and evaluated 1 month ago for the same presentation he states that the pain that he is currently experiencing is the exact same pain he had then. He denies any fevers, chills, cough, congestion, sore throat, palpitations, lower extremity swelling. Patient states that he has been living at a hotel is upset with his living situation. Patient reports that he needs to be psychiatrically admitted as he has had thoughts of suicidal ideations for the last several days. When asked if he has a suicidal plan he does not answer me. He denies homicidal ideation, visual or auditory hallucinations. MD Complaint: generalized weakness Onset (ago): day(s) Migration: none Associated symptoms: chest pain Related Data Home Medications ?Medication ?Instructions ?Recorded ?Confirmed coenzyme Q10 75 mg capsule (Ultra 100 mg PO DAILY 05/31/23 05/31/23 CoQ10) Previous Rx's ?Medication ?Instructions ?Recorded aspirin 81 mg capsule 81 mg PO DAILY 30 days #30 caps 06/16/23 atorvastatin 40 mg tablet 40 mg PO DAILY 30 days #30 tabs 06/16/23 buspirone 10 mg tablet 20 mg (2 x 10 mg) PO TID 30 days 06/16/23 #180 tabs celecoxib 100 mg capsule (Celebrex) 100 mg PO BID 30 days #60 caps 06/16/23 famotidine 20 mg tablet 20 mg PO DAILY 30 days #30 tabs 06/16/23 fluoxetine 40 mg capsule (Prozac) 40 mg PO DAILY 30 days #30 caps 06/16/23 hydroxyzine HCl 25 mg tablet 25 mg PO DAILY PRN Anxiety 30 days 06/16/23 #30 tabs melatonin 10 mg tablet 10 mg PO BEDTIME PRN Insomnia 30 06/16/23 days #30 tabs metoprolol tartrate 25 mg tablet 25 mg PO BID 30 days #60 tabs 06/16/23 naltrexone 50 mg tablet 50 mg PO DAILY 30 days #30 tabs 06/16/23 nicotine 7 mg/24 hr daily 7 mg transdermal DAILY 28 days #28 06/16/23 transdermal patch ea quetiapine 200 mg tablet 200 mg PO BEDTIME 30 days #30 tabs 06/16/23 quetiapine 50 mg tablet 50 mg PO BEDTIME PRN insomnia 30 06/16/23 days #30 tabs Allergies Allergy/AdvReac Type Severity Reaction Status Date / Time No Known Allergies Allergy Verified 07/03/23 14:31 Review of Systems 2 Review of Systems: Yes all other systems are reviewed and are negative Constitutional: Constitutional: Reports as per [facility] Past Medical History Medical History (Updated 07/03/23 @ 23:29 by VIKASH Sherman) Depression CAD (coronary artery disease) Surgical History (Updated 05/30/23 @ 11:13 by Nola Gar DO) Heart valve replaced S/P CABG x 4 Social History Social History (Updated 05/30/23 @ 11:13 by Nola Gar DO) Household Members: None Household Members Other:: Homeless staying in hotel Housing: Homeless Do you presently have visiting nurse or other home services: No Alcohol intake: current Alcohol intake frequency: 3 or more drinks per day Alcohol type: beer and hard liquor Patient Tobacco Use Status: Former Tobacco user Quit Date: 3 days Tobacco use type: Cigarette Cigarette Packs Per Day: 5 Cigarettes Per Day: 100.0 Years Smoked: 50 Smoked in Last 30 Days: Yes e-Cigarette/Vaping Use: Former Use Second Hand Smoke Exposure: No Use of substances other than those prescribed or required for medical reasons: Yes Substance Use Type: Marijuana Advance Directives: No Advance Directives Information Provided: No service: No Sexual orientation: Straight/Heterosexual Physical Exam 2 Vital Signs: Vital Signs: Last Vital Signs Temp 98.6 F 07/03/23 22:00 Pulse 60 07/03/23 22:00 Resp 16 07/03/23 22:00 BP 112/52 L 07/03/23 22:00 Pulse Ox 95 07/03/23 22:00 O2 Del Method Room Air 07/03/23 22:00 BMI result Body Mass Index 28.6 Const: General: cooperative, comfortable and no acute distress O rientation/consciousness: patient oriented x3 Limitations: no limitations HEENT: Head: Yes normal to inspection, Yes normocephalic and Yes atraumatic Ears: hearing grossly normal bilaterally General nose exam: Normal external nose present Face and sinus: Yes normal facial exam Mouth: Normal oral and palatal mucosa present, oropharynx normal and moist mucous membranes Throat: Yes posterior oropharynx normal Eyes: General: appearance normal, both eyes and all related structures E yelids: Yes eyelids normal Conjunctivae: conjunctivae normal Sclerae: s clerae normal Pupils: Equal, round and reactive pupils present EOM: EOMs intact bilaterally Neck: Neck: Yes normal visual inspection, Yes full ROM and Yes no lymphadenopathy Lymphatic: no lymphadenopathy noted Chest: Chest palpation & inspection: normal inspection of the chest Resp: Effort & Inspection: normal respiratory effort and able to speak in complete sentences Auscultation: clear to auscultation bilaterally, no crackles, no rales, no rhonchi and no wheezes Cardio: Rate: regular rate Rhythm: regular rhythm Heart sounds: S1 normal heart sound present and S2 normal heart sound present GI: Inspection: Yes normal to inspection Skin: General skin exam: no rashes or lesions noted Trauma: no lacerations or abrasions Wounds: no wounds Neuro: General: patient oriented x3 and moves all extremities Cranial nerves: Yes Equal, round and reactive pupils present Extrem: Other: Extremities are well perfused, strong DP pulse. No pitting edema noted. Mild calf tenderness palpation General: Yes normal to inspection Right upper extremity: normal to inspection Left upper extremity: normal to inspection Right lower extremity: normal to inspection Left lower extremity: normal to inspection Psych: Appearance: grossly normal Mental Status: mental status grossly normal Speech and movement: Normal speech and movement present Affect: L abile affect present Attitude: Guarded attititude/behavior present and Avoids eye contact (attititude/behavior) Thought process: Normal thought process present Thought content: Suicidality present Insight: Poor insight present (Psych) Judgement: Poor judgement present (Psych) Course Reevaluation(s) Reevaluation #1: There is slight normocytic anemia noted at 13.6/40, BNP slightly elevated at 408, however patient has no pitting edema, or shortness of breath. Chest x-ray unremarkable. Ultrasound revealing no blood clots. He has no active chest pain or shortness of breath vital signs within normal limits. Troponin flat. At this time, patient is medically cleared, will transfer to Psychiatric pod as patient wishes to see the care team due to suicidal ideation. Physician observation initiated. Time: 21:25 Medications Administered Discontinued Medications Generic Name Dose Route Start Last Admin Trade Name Bonnie PRN Reason Stop Dose Admin Acetaminophen 975 mg 07/03/23 21:42 07/03/23 22:41 Acetaminophen 325 Mg Tablet PO 07/03/23 21:43 975 mg ONCE ONE Administration Buspirone HCl 10 mg 07/03/23 21:31 07/03/23 22:41 Buspirone Hcl 10 Mg Tablet PO 07/03/23 21:32 10 mg ONCE ONE Administration Sodium Chloride 1,000 mls @ 999 mls/hr 07/03/23 14:29 07/03/23 18:08 Ns IV 07/03/23 15:29 Infused .Q1H1M ONE Infusion Melatonin 6 mg 07/03/23 21:31 07/03/23 22:41 Melatonin 3 Mg Tablet PO 07/03/23 21:32 6 mg ONCE ONE Administration Quetiapine Fumarate 200 mg 07/03/23 21:31 07/03/23 22:41 Quetiapine Fumarate 200 Mg Tablet PO 07/03/23 21:32 200 mg ONCE ONE Administration Medical Decision Making Medical Decision Making MDM Narrative: This is a 67-year-old male, with a history of CABG, and alcohol abuse, who presents emergency department for evaluation of generalized weakness, intermittent chest pains for the last 3 days. Patient states that he feels like his legs were giving out underneath him. He denies hitting his head or LOC. He states that he feels this way after prolonged walking. He states that his legs typically feel okay up until walking for a while. He is alert and oriented times 4, he is neurologically intact. Lungs are clear to auscultation bilaterally, vital signs within normal limits. Differential diagnoses include electrolyte derangement, ACS-unlikely, hypomagnesium, DVT, PAD. Patient does have bilateral calf tenderness. No pitting edema noted lower extremities. Patient had a similar presentation 1 month ago, patient states that his symptoms are similar to previous. He is comfortable, under no acute distress. He had a CTA of his chest last month which was unremarkable. Plan: Labs, EKG, chest x-ray, ultrasound Differential Diagnosis Differential Diagnoses: The differential diagnosis associated with the presentation includes See above Admission/Observation Consideration of admission/observation: Escalation of care including admission/observation considered Escalation of care including admission/observation considered however given workup today not warranted at this time. Lab Data MDM Lab Attestation statement: I reviewed the patient's lab results. No leukocytosis, slight normocytic anemia with a hemoglobin and hematocrit at 13.6/40.1, chemistry revealing slight BHARAT at 1.29, previous creatinine between 0.8 and 0.9. BNP 408 07/03/23 14:48 07/03/23 14:48 Labs: Lab Results 07/03/23 07/03/23 07/03/23 Range/Units 14:48 17:47 22:36 WBC 9.5 (4.8-10.8) X10*3/uL RBC 4.56 L (4.60-5.80) X10*6/uL Hgb 13.6 L (14.0-18.0) g/dl Hct 40.1 L (42.0-52.0) % MCV 87.9 (80.0-98.0) fL MCH 29.8 (27.0-33.0) pg MCHC 33.9 (31.0-36.0) g/dl RDW 17.2 H (11.0-16.0) % Plt Count 147 L D (160-400) X10*3/uL MPV 9.6 (9.4-12.4) fL Immature Gran % (Auto) 0.3 (0.0-0.4) % Neut % (Auto) 69.8 (45-73) % Lymph % (Auto) 17.8 L (20-40) % [place] % (Auto) 8.7 (2-11) % Eos % (Auto) 3.1 (0-4) % Baso % (Auto) 0.3 (0-2) % Lymph # (Auto) 1.7 (1.2-4.9) X10*3/uL [place] # (Auto) 0.8 (0.1-1.2) X10*3/uL Eos # (Auto) 0.3 (0.0-0.4) X10*3/uL Baso # (Auto) 0.0 (0.0-0.2) X10*3/uL Abs Immat Gran (auto) 0.03 (0.00-0.03) X10*3/uL Absolute Neuts (auto) 6.6 (2.0-8.3) x10*3/uL Absolute Nucleated RBC 0.000 (0.0-0.012) X10*3/uL Nucleated RBC % (auto) 0.0 (0.0-0.2) /100WBC Sodium 137 (135-145) mmol/L Potassium 4.7 (3.3-5.1) mmol/L Chloride 104 (96-108) mmol/L Carbon Dioxide 22 (22-29) mmol/L Anion Gap 16 (12-20) BUN 22 H (9-16) mg/dL Creatinine 1.29 (0.5-1.4) mg/dL Estim Creat Clear Calc 54.2 Estimated GFR 56 Random Glucose 107 (60-115) mg/dL Calcium 9.3 (8.4-10.2) mg/dL Magnesium 2.1 (1.6-2.6) mg/dL Total Bilirubin 1.2 H (0.0-1.0) mg/dL Direct Bilirubin 0.3 (0.0-0.5) mg/dL AST 47 H (5-37) U/L ALT 28 (0-40) U/L Alkaline Phosphatase 58 (39-117) U/L Total Creatine Kinase 166 (38-174) U/L Troponin I High Sens 25.6 D 26.3 (<3.5-35.0) ng/L B-Natriuretic Peptide 408 H (<100) pg/mL Total Protein 7.5 (6.5-8.0) g/dL Albumin 4.2 (3.5-5.0) g/dL Lipase 17 (8-78) U/L Urine Color Yellow Urine Appearance Clear Urine pH 5.5 (5.0-9.0) Ur Specific [place] 1.015 (1.005-1.025) Urine Protein Trace (Neg-Trace) mg/dL Urine Glucose (UA) Negative (Negative) mg/dL Urine Ketones 15 (Negative) mg/dL Urine Blood Negative (Negative) Urine Nitrite Negative (Negative) Ur Leukocyte Esterase Negative (Negative) Urine Opiates Screen Not Detected (Not Detect) Ur Buprenorphine Scrn Not Detected (Not Detect) ng/mL Ur Oxycodone Screen Not Detected (Not Detect) ng/mL Urine Methadone Screen Not Detected (Not Detect) ng/mL Urine Fentanyl Screen Not Detected (Not Detect) Ur Barbiturates Screen POSITIVE H (Not Detect) Ur Phencyclidine Scrn Not Detected (Not Detect) Ur Amphetamines Screen Not Detected (Not Detect) U Benzodiazepines Scrn Not Detected (Not Detect) Urine Cocaine Screen Not Detected (Not Detect) U Marijuana (THC) Screen POSITIVE H (Not Detect) Influenza Type A (PCR) NEGATIVE (Negative) Influenza Type B (PCR) NEGATIVE (Negative) RSV RNA Qual (PCR) NEGATIVE (Negative) SARS-CoV-2 RNA (RT-PCR) NEGATIVE (Negative) Independent Interpretation I performed an independent interpretation of an: EKG Interpretation: Sinus bradycardia at a ventricular rate of 57 beats per minute, no ST elevation or depression. QT/QTC 470/457. Radiology Impression Discussion of test interpretation with radiology: I have reviewed the radiologist's reading. Radiologist Impression: COMPARISON: None available. TECHNIQUE: Ultrasound of the deep veins is performed from the hip to the calf with compression sonography and color and pulse Doppler assessment. Spectral analysis with color-flow imaging is performed. FINDINGS: RIGHT: There is normal venous compression and respiratory variation and augmented flow. The visualized common femoral vein, superficial femoral vein, profunda femoral vein, popliteal vein, and the trifurcation region shows no evidence of deep venous thrombosis. There is no significant popliteal fossa cyst. LEFT: There is normal venous compression and respiratory variation and augmented flow. The visualized common femoral vein, superficial femoral vein, profunda femoral vein, popliteal vein, and the trifurcation region shows no evidence of deep venous thrombosis. There is no significant popliteal fossa cyst. If the patient's symptoms persist, followup ultrasound in 5 days 7 days might be of value to exclude proximal propagation from a non-visualized calf vein. US/US venous duplex LE BI IMPRESSION: No DVT demonstrated in the bilateral lower extremity. Dictated By: Alphonse Logan MD EXAMINATION: XR CHEST CLINICAL INFORMATION: Chest pain and generalized weakness. COMPARISON: Chest radiograph dated 05/30/2023. TECHNIQUE: Frontal view of the chest was obtained. FINDINGS: No significant abnormality is noted involving the heart, lungs, mediastinum, bony thorax or soft tissues. There are post CABG changes. Cervical orthopedic hardware and left cervical surgical clips are noted. There has been a resection of the distal right clavicle. XR/XR chest 1V IMPRESSION: Unremarkable examination. Dictated By: Yunier Cadrenas MD Scores Heart Score History: -0- slightly suspicious ECG: -0- normal Age: -2- > or = 65 Risk factory: -1- 1 or 2 risk factors Troponin: -0- < or = normal limit Score: 3 Risk: 1.7% Critical Care Time Critical Care Time Critical Care Time: Yes Total Critical Care Time: 35 Attestation: I have personally provided critical care time exclusive of time spent on separately billable procedures. Time includes review of lab data, radiology results, discussion with consultants, and monitoring for potential decompensation. Intervention performed as documented. Discharge Plan Discharge Clinical Impression: Atypical chest pain, Suicidal ideation Patient Disposition: Still a Patient Prescriptions: No Action Ultra CoQ10 75 mg Capsule 100 mg PO DAILY quetiapine 200 mg Tablet 200 mg PO BEDTIME 30 Days Qty: 30 0RF buspirone 10 mg Tablet 20 mg PO TID 30 Days Qty: 180 0RF hydroxyzine HCl 25 mg Tablet 25 mg PO DAILY PRN (Reason: Anxiety) 30 Days Qty: 30 0RF nicotine 7 mg/24 hr Patch 24 Hour 7 mg transdermal DAILY 28 Days Qty: 28 0RF quetiapine 50 mg Tablet 50 mg PO BEDTIME PRN (Reason: insomnia) 30 Days Qty: 30 0RF famotidine 20 mg Tablet 20 mg PO DAILY 30 Days Qty: 30 0RF fluoxetine [Prozac] 40 mg Capsule 40 mg PO DAILY 30 Days Qty: 30 0RF atorvastatin 40 mg Tablet 40 mg PO DAILY 30 Days Qty: 30 0RF naltrexone 50 mg Tablet 50 mg PO DAILY 30 Days Qty: 30 0RF celecoxib [Celebrex] 100 mg Capsule 100 mg PO BID 30 Days Qty: 60 0RF metoprolol tartrate 25 mg Tablet 25 mg PO BID 30 Days Qty: 60 0RF melatonin 10 mg Tablet 10 mg PO BEDTIME PRN (Reason: Insomnia) 30 Days Qty: 30 0RF aspirin 81 mg Capsule 81 mg PO DAILY 30 Days Qty: 30 0RF Print Language: [place]an
--- NOTE | 2023-07-03 17:38 | PC.NURSE ---
pt expressed SI to [facility] after previously denying SI. pt would not states if pt had plan or not. pt moved to . 1:[address] belongings secured by mill order scheduler in pod. disposition pending
[2023-07-03 17:59] LABS: Appearance Urine Clear; Color Urine Yellow; Glucose Urine UA Negative (Negative); Leukocyte Esterase Urine Negative (Negative); Nitrite Urine Negative (Negative); PH 5.5 (5.0-9.0); Specific Gravity - Urine 1.015 (1.005-1.025); Urine Blood Negative (Negative); Urine Ketones 15 mg/dL (Negative); Urine Protein Trace mg/dL (Neg-Trace)
[2023-07-03 18:21] VITALS: BP 113/43; PULSE 56; RESP 18; O2SAT 94
[2023-07-03 18:23] LABS: Troponin-I High Sensitivity 26.3 ng/L (<3.5-35.0)
[2023-07-03 18:33] LABS: Magnesium 2.1 mg/dL (1.6-2.6)
[2023-07-03 20:00] VITALS: BP 107/75; PULSE 53; RESP 20; TEMP 36.7; O2SAT 94
[2023-07-03 22:00] VITALS: BP 112/52; PULSE 60; RESP 16; TEMP 37; O2SAT 95
[2023-07-03] MEDS: Acetaminophen 325 MG TABLET 975 MG PO (22:41)
[2023-07-03] MEDS: QUEtiapine Fumarate 200 MG TABLET PO (22:41)
[2023-07-03] MEDS: Melatonin 3 MG TABLET 6 MG PO (22:41)
[2023-07-03] MEDS: busPIRone HCl 10 MG TABLET PO (22:41)
--- NOTE | 2023-07-03 22:58 | PC.NURSE ---
pt medicated according to may. pt ambulatory with steady gait medically cleared for pod
[2023-07-03 23:10] LABS: Amphetamine Screen Urine Not Detected (Not Detect); Barbiturates, Urine POSITIVE (Not Detect); Benzodiazepines Screen Urine Not Detected (Not Detect); Buprenorphine Scr Not Detected (Not Detect); Cannabinoid Screen Urine POSITIVE (Not Detect); Cocaine Screen Urine Not Detected (Not Detect); Fentanyl, urine Not Detected (Not Detect); Methadone Screen, Urine Not Detected (Not Detect); Opiate Screen Urine Not Detected (Not Detect); Oxycodone Screen Urine Not Detected (Not Detect); Phencyclidine Screen Urine Not Detected (Not Detect)
--- NOTE | 2023-07-04 02:32 | MHC.CARE ---
CARE Team attempted to meet with the pt but he was asleep and would not make much sense after being some time to rouse. When asked why he came into [facility] ED today, he stated it was due to chest pain. He then told the PA that he was having SI. When t/w asked the pt about his SI he stated that it is gone now but that he wants to go upstairs because they have groups . T/W informed the pt that they have many many more groups OP that t/w could set up for him and he stated that he doesn't have the money for that or a way to go to the groups. Pt stated that he is out of money and has no place to go. Pt stated that once he is done with the groups upstairs that he would like to go to a fpc house. Pt is a daily drinker but stated that he has had no ETOH today. A urine ETOH screen was completed and never came back. Pt will require a full assessment once he is able to participate appropriately in the conversation.
[2023-07-04 03:31] VITALS: BP 164/57; PULSE 66; RESP 17; TEMP 36.7; O2SAT 96
[2023-07-04 09:54] VITALS: BP 124/85; PULSE 52; RESP 16; TEMP 37.1; O2SAT 94
[2023-07-04] MEDS: FLUoxetine HCl 20 MG CAPSULE 40 MG PO (10:41)
[2023-07-04] MEDS: Famotidine 20 MG TABLET PO (10:41)
[2023-07-04] MEDS: busPIRone HCl 10 MG TABLET 20 MG PO (10:41)
[2023-07-04 10:42] VITALS: BP 124/85; PULSE 52
[2023-07-04] MEDS: Metoprolol Tartrate 25 MG TABLET PO (10:42)
[2023-07-04] MEDS: Celecoxib 100 MG CAPSULE PO (10:43)
[2023-07-04] MEDS: Naltrexone HCl 50 MG TABLET PO (10:43)
[2023-07-04] MEDS: Nicotine 7 MG PATCH.TD24 TRANSDERMA (10:43)
[2023-07-04] MEDS: Aspirin Enteric Coated 81 MG TABLET.DR PO (10:43)
[2023-07-04 10:52] LABS: Ethanol < 10 mg/dL
--- NOTE | 2023-07-04 15:40 | MHC.RECOVRN ---
Met with pt after cleared by CARE Team and pt expressed interest in ATS for alcohol use. Pt not currently appropriate for ATS level of care due to <10 alcohol level upon presentation and not scoring on CIWA while in the ED. Discussed this with pt, educated pt on options such as [facility] and outpatient treatment. Provided pt with recovery resources. Pt voices discontentment and need for a place to stay. Pt had been provided with other area resources and snf information, encouraged pt to present as walk in. Pt offered Lyft to snf if needed. Pt denies questions or concerns for t/w. Provider, CARE Team, RN, Grace Vazquez QM NURSE and Mima Luna APRN aware.
[2023-07-04 16:33] VITALS: BP 137/94; PULSE 94; RESP 16; TEMP 37.1; O2SAT 98
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
[2023-07-06 08:51] LABS: Alcohol, Ethyl Urine Screen NEGATIVE
== END 2023-07-04 16:34 | disposition home or self-care (01) ==
PROVIDERS: Emergency Medicine; Physician Assistant Medical; Emergency Provider Emergency Medicine Emergency Medical Services
DX: F33.1 Major depressive disorder, recurrent, moderate (principal); F10.90 Alcohol use, unspecified, uncomplicated; I25.10 Atherosclerotic heart disease of native coronary artery without angina pectoris; R45.851 Suicidal ideations; R60.0 Localized edema; R00.1 Bradycardia, unspecified; R07.89 Other chest pain; R53.1 Weakness; M79.605 Pain in left leg; M79.604 Pain in right leg; R41.82 Altered mental status, unspecified; Z03.818 Encounter for observation for suspected exposure to other biological agents ruled out; Z51.81 Encounter for therapeutic drug level monitoring; Z87.891 Personal history of nicotine dependence; Z79.899 Other long term (current) drug therapy
CPT/HCPCS: 0241U; 36415; 71045; 80048; 80076; 80307; 81003; 82550; 83690; 83735; 83880; 84484; 85025; 93005; 93970; 96360; 96361; 99285; S9485

== ENCOUNTER → 2023-07-03 14:27 | Outpatient (BNV) | payer MEDICARE, SELFPAY | PROVIDERS: Emergency Provider Emergency Medicine Emergency Medical Services; Visit Provider Internal Medicine Cardiovascular Disease | DX: R94.31 Abnormal electrocardiogram [ECG] [EKG] (principal) | CPT/HCPCS: 93010 ==

== ENCOUNTER → 2023-07-03 15:18 | Outpatient (BNV) | payer MEDICARE, SELFPAY | PROVIDERS: Emergency Provider Emergency Medicine Emergency Medical Services; Visit Provider Social Worker | DX: F33.9 Major depressive disorder, recurrent, unspecified (principal); F10.90 Alcohol use, unspecified, uncomplicated | CPT/HCPCS: 99285 ==

== ENCOUNTER 2023-07-11 07:21 | Inpatient (IN) | payer MEDICARE, MEDICAID, SELFPAY ==
[2023-07-11] VITALS (8 sets, daily range): BP systolic 90–130; BP diastolic 53–77; PULSE 14–70; RESP 11–21; TEMP 36.6–37.2; O2SAT 95–98; BMI 25.8
--- NOTE | 2023-07-11 | ECG_ITS ---
Test Reason : chest pain Blood Pressure : / mmHG Vent. Rate : 076 BPM Atrial Rate : 076 BPM P-R Int : 156 ms QRS Dur : 100 ms QT Int : 460 ms P-R-T Axes : 066 -48 124 degrees QTc Int : 517 ms Normal sinus rhythm Possible Left atrial enlargement Left axis deviation Minimal voltage criteria for LVH, may be normal variant ( Willam product ) Anteroseptal infarct , age undetermined ST & T wave abnormality, consider lateral ischemia Prolonged QT Abnormal ECG No significant changes when compared with the previous EKG of 11 july 2023 Referred By: Navdeep Corey Electronically Signed By:BRISSA TREVIÑO
--- NOTE | 2023-07-11 | ECG_ITS ---
Test Reason : CHEST PAIN Blood Pressure : / mmHG Vent. Rate : 067 BPM Atrial Rate : 067 BPM P-R Int : 152 ms QRS Dur : 118 ms QT Int : 502 ms P-R-T Axes : 020 -24 124 degrees QTc Int : 530 ms Normal sinus rhythm Left ventricular hypertrophy with QRS widening and repolarization abnormality ( R in aVL , [place] product ) Prolonged QT Abnormal ECG When compared with ECG of 11-JUL-2023 17:20, No significant change was found Referred By: Navdeep Corey Electronically Signed By:BRISSA TREVIÑO
--- NOTE | 2023-07-11 | ECG_ITS ---
Test Reason : CHEST PAIN Blood Pressure : / mmHG Vent. Rate : 063 BPM Atrial Rate : 063 BPM P-R Int : 138 ms QRS Dur : 116 ms QT Int : 518 ms P-R-T Axes : 024 -26 118 degrees QTc Int : 530 ms Normal sinus rhythm Left ventricular hypertrophy with QRS widening and repolarization abnormality ( R in aVL , [place] product ) Prolonged QT Abnormal ECG When compared with ECG of 11-JUL-2023 13:34, No significant change was found Referred By: Navdeep Corey Electronically Signed By:BRISSA TREVIÑO
--- NOTE | ~2023-07-11 | CT_ITS ---
EXAMINATION: CT ABDOMEN AND PELVIS WITH AND WITHOUT CONTRAST: CT GI BLEEDING STUDY CLINICAL INFORMATION: Melena, hematemesis. COMPARISON: No pertinent prior studies are available for comparison. TECHNIQUE: Multidetector volumetric imaging was performed from the lung bases to the pubic symphysis before and after the administration of: Intravenous contrast: 85 mL Omnipaque 350 No contrast reaction reported MIP coronal, sagittal and coronal reformatted images were obtained on the technologist workstation. This CT examination was performed using dose optimization techniques as appropriate, variously including the following: *Automated exposure control *Adjustment of mA and/or kV according to patient size (this includes techniques or standardized protocols for targeted exams where dose is matched to indication/reason for exam; i.e. extremities or head) *Use of iterative reconstruction technique Total exam dose-length product 503 mGy-cm FINDINGS: STOMACH: No abnormal wall thickening or mass. No intraluminal contrast accumulation to suggest hemorrhage. SMALL BOWEL: No abnormal wall thickening or dilation. No intraluminal contrast accumulation to suggest hemorrhage. COLON: Intraluminal contrast accumulation in the cecum (16:118), suspicious for active GI bleed. Equivocal mild rectal wall thickening without significant perirectal fat stranding. Colonic diverticulosis with associated chronic muscular hyperplasia of the sigmoid. No significant pericolonic inflammatory changes. Normal appendix. LUNG BASES: No focal consolidation or pleural effusion. LIVER, GALLBLADDER, AND BILIARY TREE: Decreased attenuation of liver parenchyma consistent with hepatic steatosis. Otherwise, the liver is normal in size and morphology. No liver lesion. The gallbladder is unremarkable with no evidence of radiopaque gallstones, gallbladder wall thickening, or obvious pericholecystic inflammatory changes. PANCREAS: Normal; no mass or surrounding fluid. SPLEEN: Normal size. No focal lesion. ADRENAL GLANDS: Normal; no mass. KIDNEYS AND URETERS: The kidneys are normal in size, shape, and attenuation. No hydronephrosis, hydroureter, or calculi. ABDOMINAL WALL: No hernia seen. LYMPHOVASCULAR STRUCTURES: No lymphadenopathy. Normal caliber abdominal aorta. Severe atherosclerotic disease. BLADDER: No focal mass or wall thickening seen. No bladder calculi. PELVIC VISCERA: Coarse prostatic calcifications. Trace amount of free fluid in the pelvis. OSSEOUS AND SOFT TISSUE STRUCTURES: Fat-containing right posterior abdominal wall hernia measuring 4.3 x 2 cm (15:35). No acute or aggressive appearing osseous findings. Degenerative changes of the spine. CT/CT gi bleed abd pel wo/w IVcon IMPRESSION: 1. Intraluminal contrast accumulation in the cecum, suspicious for active GI bleed. 2. Equivocal mild rectal wall thickening without significant perirectal fat stranding. Correlate clinically for proctitis. 3. Diverticulosis but no evidence of acute diverticulitis. 4. Hepatic steatosis. 5. Trace amount of free fluid in the pelvis. This critical result was discussed with Dr Madhav Guthrie at 07/11/2023 10:09 PM and it was ascertained that the content and urgency of the report was understood at the time of direct communication.
--- NOTE | ~2023-07-11 | XR_ITS ---
EXAMINATION: XR CHEST CLINICAL INFORMATION: Chest pain COMPARISON: Chest 05/30/2023 TECHNIQUE: AP upright portable view of the chest was obtained. 8:00 AM FINDINGS: No significant abnormality is noted involving the heart, lungs, mediastinum, bony thorax or soft tissues. The patient is status post median sternotomy for CABG surgery. Cervical orthopedic hardware in left cervical clips are again noted. There has been resection of the distal right clavicle. XR/XR chest 1V IMPRESSION: No acute cardiopulmonary disease.
--- NOTE | 2023-07-11 07:33 | ECG_ITS ---
Test Reason : medication overdose Blood Pressure : / mmHG Vent. Rate : 058 BPM Atrial Rate : 058 BPM P-R Int : 138 ms QRS Dur : 092 ms QT Int : 488 ms P-R-T Axes : 011 -17 107 degrees QTc Int : 479 ms Sinus bradycardia Left ventricular hypertrophy with repolarization abnormality ( Willam product ) Abnormal ECG When compared with ECG of 03-JUL-2023 14:27, T wave inversion now evident in Lateral leads Referred By: Earl Lopez Electronically Signed By:BRISSA TREVIÑO
--- NOTE | 2023-07-11 07:40 | ED_ITS ---
HPI - Overdose General Chief Complaint: Psychiatric Symptoms Stated Complaint: SI,TOOK 20 BUSPIRONE PER EMS Time Seen by Provider: 07/11/23 07:32 Source: EMS Mode of arrival: EMS Limitations: no limitations History of Present Illness HPI Narrative: This is a very pleasant 67 years old male the history of major depression multiple psychiatric hospitalization history of alcohol use disorder, history of coronary artery disease status post CABG presented to the emergency department by ambulance complaining of overdose of buspirone he states that he took about 20 tablets last night around 21:00. He denies any chest pain shortness of breath vomiting MD complaint: intentional overdose Onset (ago): day(s) (1) Intent: suicide attempt Associated symptoms: depression Treatments Prior to Arrival: none Related Data Previous Rx's ?Medication ?Instructions ?Recorded aspirin 81 mg capsule 81 mg PO DAILY 30 days #30 caps 06/16/23 atorvastatin 40 mg tablet 40 mg PO DAILY 30 days #30 tabs 06/16/23 buspirone 10 mg tablet 20 mg (2 x 10 mg) PO TID 30 days 06/16/23 #180 tabs celecoxib 100 mg capsule (Celebrex) 100 mg PO BID 30 days #60 caps 06/16/23 famotidine 20 mg tablet 20 mg PO DAILY 30 days #30 tabs 06/16/23 fluoxetine 40 mg capsule (Prozac) 40 mg PO DAILY 30 days #30 caps 06/16/23 hydroxyzine HCl 25 mg tablet 25 mg PO DAILY PRN Anxiety 30 days 06/16/23 #30 tabs metoprolol tartrate 25 mg tablet 25 mg PO BID 30 days #60 tabs 06/16/23 quetiapine 200 mg tablet 200 mg PO BEDTIME 30 days #30 tabs 06/16/23 quetiapine 50 mg tablet 50 mg PO BEDTIME PRN insomnia 30 06/16/23 days #30 tabs Allergies Allergy/AdvReac Type Severity Reaction Status Date / Time No Known Allergies Allergy Verified 07/11/23 07:39 Review of Systems 2 Constitutional: Constitutional: Reports no additional constitutional complaints Eyes: Eyes: Reports no additional eye complaints Respiratory: Respiratory: Reports no additional respiratory complaints Gastrointestinal: Gastrointestinal: Reports no additional gastrointestinal complaints [facility] Past Medical History Attestation statement: The following information was validated with the patient. [facility] Narrative: CAD, major depression, alcohol use disorder Medical History Depression CAD (coronary artery disease) Surgical History Heart valve replaced S/P CABG x 4 Social History Social History Household Members: None Household Members Other:: Homeless staying in hotel Housing: Homeless Do you presently have visiting nurse or other home services: No Alcohol intake: current Alcohol intake frequency: 3 or more drinks per day Alcohol type: hard liquor Patient Tobacco Use Status: Former Tobacco user Quit Date: 3 days Tobacco use type: Cigarette Cigarette Packs Per Day: 5 Cigarettes Per Day: 100.0 Years Smoked: 50 Smoked in Last 30 Days: Yes e-Cigarette/Vaping Use: Former Use Second Hand Smoke Exposure: No Use of substances other than those prescribed or required for medical reasons: No Substance Use Type: Marijuana Advance Directives: No Advance Directives Information Provided: No service: No Sexual orientation: Straight/Heterosexual Physical Exam 2 Vital Signs: Vital Signs: Last Vital Signs Temp 98.9 F 07/11/23 10:31 Pulse 68 07/11/23 11:34 Resp 15 07/11/23 11:34 BP 94/58 L 07/11/23 11:34 Pulse Ox 95 07/11/23 10:31 O2 Del Method Room Air 07/11/23 10:31 BMI result Body Mass Index 25.8 Const: General: cooperative, comfortable, no acute distress and well developed Nutritional Appearance: average body habitus Orientation/consciousness: p atient oriented x3 Limitations: no limitations HEENT: Head: Yes normal to inspection General nose exam: Normal external nose present Face and sinus: Yes normal facial exam Neck: Neck: Yes normal visual inspection and Yes full ROM Chest: Chest palpation & inspection: normal inspection of the chest Resp: Effort & Inspection: normal respiratory effort Auscultation: clear to auscultation bilaterally Cardio: Jugular venous distension: no JVD Rate: regular rate Rhythm: r egular rhythm GI: Inspection: Yes normal to inspection Palpation (GI): Soft to palpation, not firm and nontender Skin: General skin exam: no rashes or lesions noted and elasticity normal R ashes: no rashes Neuro: General: patient oriented x3 Psych: Affect: Sad affect present Attitude: cooperative Medications Administered Generic Name Dose Route Start Last Admin Trade Name Freq PRN Reason Stop Dose Admin Famotidine 20 mg 07/11/23 12:15 07/11/23 13:03 Famotidine/Pf 20 Mg/2 Ml Vial IVPUSH 20 mg BID [facility] Administration Sodium Chloride 1,000 mls @ 100 mls/hr 07/11/23 12:30 07/11/23 13:07 Ns IVCONT 100 mls/hr .Q10H [facility] Administration Thiamine HCl 100 mg/ Sodium 101 mls @ 202 mls/hr 07/11/23 12:30 07/11/23 13:54 Chloride IV Infused DAILY [facility] Infusion Magnesium Sulfate 2 gm in 50 mls @ 25 mls/hr 07/11/23 12:30 07/11/23 13:51 Magnesium Sulfate/H2o IV 07/11/23 14:29 25 mls/hr ONCE ONE Administration Discontinued Medications Generic Name Dose Route Start Last Admin Trade Name Freq PRN Reason Stop Dose Admin Calcium Carbonate 1,500 mg 07/11/23 12:08 07/11/23 13:02 Calcium Carbonate 750 Mg Tab.Chew PO 07/11/23 12:09 1,500 mg ONCE ONE Administration Sodium Chloride 1,000 mls @ 999 mls/hr 07/11/23 07:45 07/11/23 11:34 Ns IVCONT 07/11/23 08:45 Infused .Q1H1M [facility] Infusion Sodium Chloride 1,000 mls @ 999 mls/hr 07/11/23 11:45 07/11/23 13:13 Ns IV 07/11/23 12:45 Infused .Q1H1M [facility] Infusion Lorazepam 2 mg 07/11/23 09:05 07/11/23 09:12 Lorazepam 1 Mg Tablet PO 07/11/23 09:06 2 mg ONCE ONE Administration Nicotine 7 mg 07/11/23 10:36 07/11/23 10:41 Nicotine 7 Mg Patch.Td24 TRANSDERMA 07/11/23 10:37 7 mg ONCE ONE Administration Phenobarbital Sodium 246 mg 07/11/23 12:00 07/11/23 13:51 Phenobarbital Sodium 130 Mg/Ml Im Once IM 07/11/23 12:01 246 mg ONCE ONE Administration Medical Decision Making Medical Decision Making MDM Narrative: Patient presented after an overdose will check labs including acetaminophen and aspirin will do an electrocardiogram as well Differential Diagnosis Differential Diagnoses: The differential diagnosis associated with the presentation includes Overdose/renal failure/liver failure Admission/Observation Consideration of admission/observation: Escalation of care including admission/observation considered Consult Healthcare Provider Management of the patient was discussed with: Hospitalist Lab Data MDM Lab Attestation statement: I reviewed the patient's lab results. 07/11/23 08:05 07/11/23 08:46 Labs: Lab Results 07/11/23 07/11/23 07/11/23 Range/Units 08:05 08:22 08:39 WBC 11.7 H (4.8-10.8) X10*3/uL RBC 5.92 H D (4.60-5.80) X10*6/uL Hgb 18.0 D (14.0-18.0) g/dl Hct 51.4 D (42.0-52.0) % MCV 86.8 (80.0-98.0) fL MCH 30.4 (27.0-33.0) pg MCHC 35.0 (31.0-36.0) g/dl RDW 18.7 H (11.0-16.0) % Plt Count 200 D (160-400) X10*3/uL MPV 9.6 (9.4-12.4) fL Immature Gran % (Auto) 0.5 H (0.0-0.4) % Neut % (Auto) 73.8 H (45-73) % Lymph % (Auto) 14.5 L (20-40) % [place] % (Auto) 9.7 (2-11) % Eos % (Auto) 0.9 (0-4) % Baso % (Auto) 0.6 (0-2) % Lymph # (Auto) 1.7 (1.2-4.9) X10*3/uL [place] # (Auto) 1.1 (0.1-1.2) X10*3/uL Eos # (Auto) 0.1 (0.0-0.4) X10*3/uL Baso # (Auto) 0.1 (0.0-0.2) X10*3/uL Abs Immat Gran (auto) 0.06 H (0.00-0.03) X10*3/uL Absolute Neuts (auto) 8.6 H (2.0-8.3) x10*3/uL Absolute Nucleated RBC 0.000 (0.0-0.012) X10*3/uL Nucleated RBC % (auto) 0.0 (0.0-0.2) /100WBC PT 11.9 (11.1-13.3) SEC INR 1.0 (0.9-1.1) Sodium (135-145) mmol/L Potassium (3.3-5.1) mmol/L Chloride (96-108) mmol/L Carbon Dioxide (22-29) mmol/L Anion Gap (12-20) BUN (9-16) mg/dL Creatinine (0.5-1.4) mg/dL Estim Creat Clear Calc Estimated GFR POC Glucose 114 (60-115) mg/dL Random Glucose (60-115) mg/dL Lactic Acid (0.5-2.0) mmol/L Calcium (8.4-10.2) mg/dL Magnesium (1.6-2.6) mg/dL Total Bilirubin (0.0-1.0) mg/dL AST (5-37) U/L ALT (0-40) U/L Alkaline Phosphatase (39-117) U/L Total Creatine Kinase (38-174) U/L Troponin I High Sens 234.0 H* D (<3.5-35.0) ng/L Total Protein (6.5-8.0) g/dL Albumin (3.5-5.0) g/dL Hold Yellow Top Salicylates < 5.0 L (15-30) mg/dL Acetaminophen < 3 (<30) mcg/mL Ethyl Alcohol mg/dL 07/11/23 07/11/23 Range/Units 08:46 10:55 WBC (4.8-10.8) X10*3/uL RBC (4.60-5.80) X10*6/uL Hgb (14.0-18.0) g/dl Hct (42.0-52.0) % MCV (80.0-98.0) fL MCH (27.0-33.0) pg MCHC (31.0-36.0) g/dl RDW (11.0-16.0) % Plt Count (160-400) X10*3/uL MPV (9.4-12.4) fL Immature Gran % (Auto) (0.0-0.4) % Neut % (Auto) (45-73) % Lymph % (Auto) (20-40) % [place] % (Auto) (2-11) % Eos % (Auto) (0-4) % Baso % (Auto) (0-2) % Lymph # (Auto) (1.2-4.9) X10*3/uL [place] # (Auto) (0.1-1.2) X10*3/uL Eos # (Auto) (0.0-0.4) X10*3/uL Baso # (Auto) (0.0-0.2) X10*3/uL Abs Immat Gran (auto) (0.00-0.03) X10*3/uL Absolute Neuts (auto) (2.0-8.3) x10*3/uL Absolute Nucleated RBC (0.0-0.012) X10*3/uL Nucleated RBC % (auto) (0.0-0.2) /100WBC PT (11.1-13.3) SEC INR (0.9-1.1) Sodium 137 (135-145) mmol/L Potassium 4.5 (3.3-5.1) mmol/L Chloride 98 (96-108) mmol/L Carbon Dioxide 18 L (22-29) mmol/L Anion Gap 26 H (12-20) BUN 24 H (9-16) mg/dL Creatinine 1.07 (0.5-1.4) mg/dL Estim Creat Clear Calc 59.0 Estimated GFR > 60 POC Glucose (60-115) mg/dL Random Glucose 99 (60-115) mg/dL Lactic Acid 1.3 (0.5-2.0) mmol/L Calcium 9.2 (8.4-10.2) mg/dL Magnesium 1.9 (1.6-2.6) mg/dL Total Bilirubin 1.7 H (0.0-1.0) mg/dL AST 148 H (5-37) U/L ALT 89 H (0-40) U/L Alkaline Phosphatase 68 (39-117) U/L Total Creatine Kinase 135 (38-174) U/L Troponin I High Sens 260.0 H* (<3.5-35.0) ng/L Total Protein 7.2 (6.5-8.0) g/dL Albumin 4.2 (3.5-5.0) g/dL Hold Yellow Top See Note Salicylates (15-30) mg/dL Acetaminophen (<30) mcg/mL Ethyl Alcohol < 10 mg/dL Independent Interpretation I performed an independent interpretation of an: EKG Interpretation: Sinus rate [address]-t changes Independent Historian Clinical information obtained from an independent historian. History obtained from or confirmed by: EMS External Record Review External record reviewed: Inpatient record Critical Care Time Critical Care Time Critical Care Time: Yes Total Critical Care Time: 90 Attestation: taking care of the pt ,speaking with EMS, hospitalist Discharge Plan Discharge Clinical Impression: Overdose Qualifiers: Encounter type: initial encounter Injury intent: accidental or unintentional Q ualified Code(s): T50.901A - Poisoning by unspecified drugs, medicaments and biological substances, accidental (unintentional), initial encounter Patient Disposition: Admitted As Inpatient Interventions: [place]-Suicide Risk Severity Scale Last Done: 07/11/23 07:43
[2023-07-11] MEDS: 0.9 % Sodium Chloride 1,000 ML 999 ML IVCONT (08:07)
[2023-07-11 08:09] LABS: MANUAL DIFF FLAG NO
--- NOTE | 2023-07-11 08:09 | PC.NURSE ---
Pt presents to ED via EMS. Reports heavy alcohol use X2 weeks, daily. Does have hx of withdrawals but is unsure if he has ever had a seizure. Last drink around midnight last night. Pt reports SI for many weeks a as well, reports he took approx 25 Buspirone (25 mg each) last night around 10pm as SI attempt. Pt denies HI, calm and cooperative and wants help. Pt is alert and oriented, breathing even and unlabored, skin slighly clammy. Pt changed over into behavioral attire and has 1:1 sitter. Pt reports substernal chest pain/ pressure, 4/10, for past few hours . 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
[2023-07-11 08:13] LABS: Basophils Absolute Auto 0.1 X10*3/uL (0.0-0.2); Basophils Percent Auto 0.6 % (0-2); Eosinophils Absolute Auto 0.1 X10*3/uL (0.0-0.4); Eosinophils Percent Auto 0.9 % (0-4); Hematocrit 51.4 % (42.0-52.0); Imm Gran Abs Auto 0.06 X10*3/uL (0.00-0.03); Imm Gran Pct Auto 0.5 % (0.0-0.4); Lymphocytes Absolute Auto 1.7 X10*3/uL (1.2-4.9); Lymphocytes Percent Auto 14.5 % (20-40); Mean Corpuscular Hemoglobin 30.4 pg (27.0-33.0); Mean Corpuscular Volume 86.8 fL (80.0-98.0); Mean Platelet Volume 9.6 fL (9.4-12.4); Monocytes Absolute Auto 1.1 X10*3/uL (0.1-1.2); Monocytes Percent Auto 9.7 % (2-11); Neutrophils Absolute Auto 8.6 x10*3/uL (2.0-8.3); Neutrophils Percent Auto 73.8 % (45-73); Platelet Count 200 X10*3/uL (160-400); Red Blood Count 5.92 X10*6/uL (4.60-5.80); Red Cell Distribution Width 18.7 % (11.0-16.0); White Blood Count 11.7 X10*3/uL (4.8-10.8)
[2023-07-11 08:16] LABS: Prothrombin Time 11.9 SEC (11.1-13.3)
--- NOTE | 2023-07-11 08:19 | PC.NURSE ---
Medications brought by pt placed with belongings secured in laundry area with other duffle bag and suitcase, no controlled meds noted by this RN.
--- NOTE | 2023-07-11 08:24 | PC.NURSE ---
Poison Control contacted, recommendations as follows: Supportive care, ECG q2 hours X3, cardiac monitoring. 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
[2023-07-11 08:26] LABS: Glucose, Whole Blood 114 mg/dL (60-115)
[2023-07-11 08:59] LABS: Acetaminophen LAB < 3 mcg/mL (<30); Salicylate < 5.0 mg/dL (15-30)
[2023-07-11] MEDS: LORazepam 1 MG TABLET 2 MG PO (09:12)
[2023-07-11 09:22] LABS: Lactic Acid 1.3 mmol/L (0.5-2.0)
--- NOTE | 2023-07-11 10:00 | ECG_ITS ---
Test Reason : overdose repeat Blood Pressure : / mmHG Vent. Rate : 064 BPM Atrial Rate : 064 BPM P-R Int : 146 ms QRS Dur : 088 ms QT Int : 450 ms P-R-T Axes : 022 019 108 degrees QTc Int : 465 ms Normal sinus rhythm cannot exclude old Inferior infarct , age undetermined Possible Anterior infarct , age undetermined T wave abnormality, consider lateral ischemia Abnormal ECG When compared with ECG of 11-JUL-2023 08:01, No significant changes seen Referred By: Earl Lopez Electronically Signed By:BRISSA TREVIÑO
[2023-07-11 10:19] LABS: Albumin Level 4.2 g/dL (3.5-5.0); Anion Gap 26 (12-20); Calcium 9.2 mg/dL (8.4-10.2); Carbon Dioxide 18 mmol/L (22-29); Chloride 98 mmol/L (96-108); Glucose Random 99 mg/dL (60-115); Potassium 4.5 mmol/L (3.3-5.1); Sodium 137 mmol/L (135-145); Total Protein 7.2 g/dL (6.5-8.0)
[2023-07-11 10:24] LABS: Alanine Aminotransferase 89 U/L (0-40); Alkaline Phosphatase 68 U/L (39-117); Aspartate Amino Transferase 148 U/L (5-37); Bilirubin Total 1.7 mg/dL (0.0-1.0); Blood Urea Nitrogen 24 mg/dL (9-16); Estimated Glomerular Filt Rate > 60; Ethanol < 10 mg/dL
--- NOTE | 2023-07-11 10:33 | PC.NURSE ---
Pt reports chest pain has resolved. Now reports stomach pain, 6/10, aching. Pt reports to RN that he had black dark stool this morning. MD alerted. Pt requesting nictoine patch
[2023-07-11] MEDS: Nicotine 7 MG PATCH.TD24 TRANSDERMA (10:41)
[2023-07-11 11:21] LABS: Magnesium 1.9 mg/dL (1.6-2.6)
[2023-07-11] MEDS: 0.9 % Sodium Chloride 1,000 ML 999 ML IV (11:45)
--- NOTE | 2023-07-11 12:00 | ECG_ITS ---
Test Reason : MED OD Blood Pressure : / mmHG Vent. Rate : 068 BPM Atrial Rate : 068 BPM P-R Int : 150 ms QRS Dur : 116 ms QT Int : 446 ms P-R-T Axes : 026 -45 117 degrees QTc Int : 475 ms Normal sinus rhythm Left anterior fascicular block Left ventricular hypertrophy with QRS widening and repolarization abnormality ( R in aVL , [place]am product ) mildly Prolonged QT Abnormal ECG When compared with ECG of 11-JUL-2023 10:27, Left anterior fascicular block is now Present Referred By: Earl Lopez Electronically Signed By:BRISSA TREVIÑO
--- NOTE | 2023-07-11 12:23 | ECG_ITS ---
Test Reason : MED OD Blood Pressure : / mmHG Vent. Rate : 066 BPM Atrial Rate : 066 BPM P-R Int : 150 ms QRS Dur : 108 ms QT Int : 460 ms P-R-T Axes : 023 -44 120 degrees QTc Int : 482 ms Normal sinus rhythm Left axis deviation Left ventricular hypertrophy with repolarization abnormality ( R in aVL , [place] product ) Abnormal ECG When compared with ECG of 11-JUL-2023 12:04, No significant changes seen Referred By: Era Mcdermott Electronically Signed By:BRISSA TREVIÑO
--- NOTE | 2023-07-11 12:25 | PM.IMHP ---
History of Present Illness Date of Service: 07/11/23 Attending physician on admission: Lilly Gentile Chief Complaint: buspar overdose 67 year old male with history of cad s/p cabg x4 four months ago, htn, hld, alcohol use disorder, MDD presented to the ED following an intentional Buspar overdose. He states he has a long history of alcohol dependence with multiple periods of sobriety, most recently for 3 months. Unfortunately relapsed about 2 weeks ago and has been drinking 2 gallons of vodka on a daily basis. He felt very depressed about this last night and around 9pm took an intentional overdose of 20, 20 mg buspirone tablets. Last drink was around the same time last night. He feels this morning he may have had an alcohol withdrawal seizure but this was unwitnessed. He has no known history of alcohol withdrawal seizures. Currently, he reports feeling depressed but denies any active suicidal thoughts. He also reports a single episode of vomiting with hematemesis, a large amount of bright red blood, prior to arrival without any recurrent episodes since. He states while in the ED, he has had episodes of black, tarry stool. Currently reporting epigastric pain with heartburn. Denies any other abdominal pain, diarrhea, hematochezia, shortness of breath, palpitations, lightheadedness, or chest pain. On arrival, vital signs stable though blood pressure is slightly soft on admission at 94/58. He has a mild leukocytosis of 11.7, RBC 5.92, H/H 18.0/51.4%, suspect some degree of hemoconcentration. Renal function is baseline, electrolyte levels normal except for CO2 18, anion gap 26. K 4.5, magnesium 1.9. Initial troponin 234, repeat 260. Ethyl alcohol level undetectable, salicylates and acetaminophen levels undetectable. Chest x-ray unremarkable. EKG on arrival showed sinus bradycardia, rate 58, QTC 479 with T-wave inversion in lateral leads. Poison control was contacted recommending serial EKGs q.2h x3. Most recent EKG 1 hour ago shows NSR, rate 68 with QTC 699 with T-wave inversions V1, V2. Discussed with Cardiology, and reports corrected QTC is within normal limits. Patient will be admitted for further cardiac monitoring and monitoring for GI bleed. Review of Systems Review of Systems: General: No fevers, malaise, unintentional weight loss HEENT: No blurred vision, diplopia. No sore throat, nasal congestion, rhinorrhea, sinus pain, ear pain Cardiovascular: No chest pain, palpitations, or leg edema Respiratory: No shortness of breath, wheezing, cough GI: +heartburn, +epigastric pain, +N/V, + hematemesis,+ melena. No diarrhea, constipation, hematochezia : No dysuria, hematuria, increased urinary frequency, decreased urinary output MSK: No myalgia, back pain Neuro: No headaches, weakness, paresthesias Psych Skin: No rashes or lesions [facility] Medical History Depression CAD (coronary artery disease) Surgical History Heart valve replaced S/P CABG x 4 Social History Household Members: None Household Members Other:: Homeless staying in hotel Housing: Homeless Do you presently have visiting nurse or other home services: No Alcohol intake: current Alcohol intake frequency: 3 or more drinks per day Alcohol type: hard liquor Patient Tobacco Use Status: Former Tobacco user Quit Date: 3 days Tobacco use type: Cigarette Cigarette Packs Per Day: 5 Cigarettes Per Day: 100.0 Years Smoked: 50 Smoked in Last 30 Days: Yes e-Cigarette/Vaping Use: Former Use Second Hand Smoke Exposure: No Use of substances other than those prescribed or required for medical reasons: No Substance Use Type: Marijuana Advance Directives: No Advance Directives Information Provided: No service: No Sexual orientation: Straight/Heterosexual Meds Allergies Allergy/AdvReac Type Severity Reaction Status Date / Time No Known Allergies Allergy Verified 07/11/23 07:39 Active Medications: Current Medications Acetaminophen (Acetaminophen 325 Mg Tablet) 650 mg PO Q6H PRN PRN Reason: Pain, Mild (Pain Scale 1-3) Albuterol Sulfate (Albuterol Sulfate 90 Mcg 8 Gm Inhaler) 2 puff INHALE QID PRN PRN Reason: Wheezing Famotidine (Famotidine/Pf 20 Mg/2 Ml Vial) 20 mg IVPUSH BID [facility] Sodium Chloride (Ns) 1,000 mls @ 999 mls/hr IV .Q1H1M [facility] Stop: 07/11/23 12:45 Last Admin: 07/11/23 11:45 Dose: 999 mls/hr Sodium Chloride (Ns) 1,000 mls @ 100 mls/hr IVCONT .Q10H [facility] Ondansetron HCl (Ondansetron Hcl 4 Mg/2 Ml Vial) 4 mg IVPUSH Q8H PRN PRN Reason: Nausea and Vomiting Pantoprazole Sodium (Pantoprazole Sodium 40 Mg/10 Ml Vial) 40 mg IVPUSH BID@0630,1630 [facility] Pharmacy Consult (Consult Rx Etoh Phenob Im/Po) 1 each MISCELLANE ONCE PRN; Protocol PRN Reason: Consult order Phenobarbital (Phenobarbital 15 Mg Tablet) 45 mg PO BID [facility] Stop: 07/13/23 21:01 Phenobarbital (Phenobarbital 30 Mg Tablet) 30 mg PO BID [facility] Stop: 07/15/23 21:01 Phenobarbital (Phenobarbital 30 Mg Tablet) 30 mg PO DAILY [facility] Stop: 07/17/23 09:01 Phenobarbital Sodium (Phenobarbital Sodium 130 Mg/Ml Vial Im Q3hx2) 185 mg IM Q3H [facility] Stop: 07/11/23 18:01 Senna (Sennosides 8.6 Mg Tablet) 17.2 mg PO BEDTIME PRN PRN Reason: Constipation Sodium Chloride (0.9 % Sodium Chloride Flush 3 Ml Syringe) 3 ml IVFLUSH QSHIFT [facility] Home Medications ?Medication ?Instructions ?Recorded ?Confirmed ?Last Taken ?Type coenzyme Q10 75 mg capsule (Ultra 100 mg PO DAILY 05/31/23 07/03/23 Unknown History CoQ10) Physical Exam Vital Signs and Narrative: Vital Signs: Last Vital Signs Temp 98.9 F 07/11/23 10:31 Pulse 68 07/11/23 11:34 Resp 15 07/11/23 11:34 BP 94/58 L 07/11/23 11:34 Pulse Ox 95 07/11/23 10:31 O2 Del Method Room Air 07/11/23 10:31 BMI result Body Mass Index 25.8 Constitutional - Awake and Alert, No apparent distress Eyes - PERRLA, EOMI Cardiovascular - S1S2, RRR, No edema Respiratory - Normal lung expansion, Normal respiratory effort, No respiratory distress, CTA bilaterally Gastrointestinal - epigastric ttp. ND; +BS; No rebound or guarding Extremities - no calf tenderness bilaterally, no swelling Skin - Warm/Dry Neurological - Alert & oriented x3, CN II-XII in tact, 5/5 strength BUE and BLE Psychological - Appropriate affect Results Labs 07/11/23 08:05 07/11/23 08:46 Labs: Laboratory Results - last 24 hr 07/11/23 07/11/23 07/11/23 08:05 08:22 08:39 MCV 86.8 MCH 30.4 MCHC 35.0 RDW 18.7 H Plt Count 200 D MPV 9.6 Immature Gran % (Auto) 0.5 H Neut % (Auto) 73.8 H Lymph % (Auto) 14.5 L [place] % (Auto) 9.7 Eos % (Auto) 0.9 Baso % (Auto) 0.6 Lymph # (Auto) 1.7 [place] # (Auto) 1.1 Eos # (Auto) 0.1 Baso # (Auto) 0.1 Abs Immat Gran (auto) 0.06 H Absolute Neuts (auto) 8.6 H Absolute Nucleated RBC 0.000 Nucleated RBC % (auto) 0.0 PT 11.9 INR 1.0 Anion Gap Estim Creat Clear Calc Estimated GFR POC Glucose 114 Random Glucose Lactic Acid Calcium Magnesium Total Bilirubin AST ALT Alkaline Phosphatase Total Creatine Kinase Troponin I High Sens 234.0 H* D Total Protein Albumin Hold Yellow Top Salicylates < 5.0 L Acetaminophen < 3 Ethyl Alcohol 07/11/23 07/11/23 08:46 10:55 MCV MCH MCHC RDW Plt Count MPV Immature Gran % (Auto) Neut % (Auto) Lymph % (Auto) [place] % (Auto) Eos % (Auto) Baso % (Auto) Lymph # (Auto) [place] # (Auto) Eos # (Auto) Baso # (Auto) Abs Immat Gran (auto) Absolute Neuts (auto) Absolute Nucleated RBC Nucleated RBC % (auto) PT INR Anion Gap 26 H Estim Creat Clear Calc 59.0 Estimated GFR > 60 POC Glucose Random Glucose 99 Lactic Acid 1.3 Calcium 9.2 Magnesium 1.9 Total Bilirubin 1.7 H AST 148 H ALT 89 H Alkaline Phosphatase 68 Total Creatine Kinase 135 Troponin I High Sens 260.0 H* Total Protein 7.2 Albumin 4.2 Hold Yellow Top See Note Salicylates Acetaminophen Ethyl Alcohol < 10 Imaging Radiologist's Impressions: Impressions Chest X-Ray 07/11/23 08:00 IMPRESSION: No acute cardiopulmonary disease. Assessment and Plan (1) Overdose: Qualifiers: Encounter type: initial encounter Injury intent: accidental or unintentional Qualified Code(s): T50.901A - Poisoning by unspecified drugs, medicaments and biological substances, accidental (unintentional), initial encounter Status: Acute (2) Major depression, recurrent, chronic: Status: Acute (3) Alcohol use disorder: Status: Acute (4) Acute GI bleeding: Status: Acute (5) Prolonged Q-T interval on ECG: Status: Acute (6) Elevated troponin: Status: Acute Plan 67 year old male with history of cad s/p cabg x4 four months ago, htn, hld, alcohol use disorder, MDD admitted for further management of qtc prolongation and elevated troponins following interntional buspar overdose and acute alcohol withdrawal #Interntional buspar overdose -took 20 tabs bupar 20mg 9pm last night -per poison control serial ekg's q2h x3 -monitor on telemetry -psychiatry consult -sitter -per poison control, repeat CMP, CBC now # prolonged QTC -most recent ekg qtc 532 -keep mag >2.0 (given 2g IV in ed), keep K>4.0 -monitor on tele -echo -avoid QTC prolonging medications #Elevated troponins -EKG with new t wave inversions V1, V2 -No chest pain -Trops flat 234-->260 -cardiology consult -echo #Acute GI bleed -suspect MWT -IV ppi, IV famotidine given heartburn -clear liquids -H/H stable. Repeat @2pm -consider gi consult if significant drop in h/h -continue ivf # acute alcohol withdrawal -drinking 2 gal vodka daily. Last drink last night around 21:00 -phenobarbital per protocol -monitor CIWA q.4h -IV thiamine, folic acid -continue IVF -addiction medicine consult #CAD s/p CABG -no chest pain -trops/ekg as above -hold asa given gi bleed. Continue bb, statin # depression -hold meds for now -psychiatry consult DVT prophylaxis- scps full code Patient requires inpatient stay at least 2 midnights for management of prolonged QTC with elevated troponins following intentional BuSpar overdose requiring serial EKGs, close cardiac monitoring, expert consultation and echocardiogram as well as close monitoring for GI bleed. He will also require phenobarbital per protocol due to alcohol withdrawal and will ultimately need evaluation by Psychiatry/care team for transfer to psychiatric unit following suicide attempt Quality Stroke Does the patient have a stroke diagnosis?: No VTE Prior VTE?: No VTE Risk Level:: Medical - moderate - high VTE Device Contraindication: N/A - Device Ordered VTE Drug Contraindication: Treatment Not Indicated
[2023-07-11] MEDS: Calcium Carbonate 750 MG TAB.CHEW 1500 MG PO (13:02)
[2023-07-11] MEDS: Famotidine/PF 20 MG/2 ML VIAL IVPUSH ×2 (13:03→22:24)
[2023-07-11] MEDS: Thiamine HCL 100 MG in 0.9 % Sodium Chloride 100 ML 202 MG IV (13:07)
[2023-07-11] MEDS: 0.9 % Sodium Chloride 1,000 ML 100 ML IVCONT (13:07)
[2023-07-11 13:26] LABS: Appearance Urine Cloudy; Color Urine Yellow; Glucose Urine UA Negative (Negative); Leukocyte Esterase Urine Trace (Negative); Nitrite Urine Negative (Negative); PH 6.5 (5.0-9.0); UMIC TRIGGER UACC YES; Urine Blood Negative (Negative); Urine Ketones 80 mg/dL (Negative); Urine Protein 30 (1+) mg/dL (Neg-Trace)
[2023-07-11 13:36] LABS: Amphetamine Screen Urine Not Detected (Not Detect); Barbiturates, Urine Not Detected (Not Detect); Benzodiazepines Screen Urine Not Detected (Not Detect); Buprenorphine Scr Not Detected (Not Detect); Cannabinoid Screen Urine POSITIVE (Not Detect); Cocaine Screen Urine POSITIVE (Not Detect); Fentanyl, urine Not Detected (Not Detect); Methadone Screen, Urine Not Detected (Not Detect); Opiate Screen Urine Not Detected (Not Detect); Oxycodone Screen Urine Not Detected (Not Detect); Phencyclidine Screen Urine Not Detected (Not Detect)
[2023-07-11 13:43] LABS: Bacteria Urine None Seen (None Seen); Hyaline Casts Urine 0-2 /LPF (0-2); RBC Urine 0-2 /HPF (0-2); Squamous Epithelial Cell Urine 0-2 /HPF (0-2); WBC Urine 0-5 /HPF (0-5)
[2023-07-11] MEDS: Magnesium Sulfate/H2O 2 GM/50 ML PIGGYBACK IV (13:51)
[2023-07-11] MEDS: PHENobarbitaL sodium 130 MG/ML IM ONCE 246 MG IM (13:51)
--- NOTE | 2023-07-11 13:52 | PHA.MEDREC ---
Pharmacy Consult ? Medication Reconciliation Pharmacy has completed the medication reconciliation. Pt states he only fills what the [facility] [place] pharmacy filled for him recently and an 81 mg aspirin. Contacted [facility] [place] [facility] pharmacy and completed med rec from fill history.
[2023-07-11] MEDS: Folic Acid 1 MG in 0.9 % Sodium Chloride 50 ML 100.4 MG IV (14:10)
[2023-07-11 14:32] LABS: Venous Blood Gas Refer to POC result
[2023-07-11 14:33] LABS: Hematocrit 43.1 % (42.0-52.0); Hemoglobin 14.9 g/dl (14.0-18.0); Mean Corpuscular HGB Conc 34.6 g/dl (31.0-36.0); Mean Corpuscular Hemoglobin 29.7 pg (27.0-33.0); Mean Corpuscular Volume 85.9 fL (80.0-98.0); Mean Platelet Volume 10.1 fL (9.4-12.4); Platelet Count 173 X10*3/uL (160-400); Red Blood Count 5.02 X10*6/uL (4.60-5.80); Red Cell Distribution Width 17.4 % (11.0-16.0); White Blood Count 11.5 X10*3/uL (4.8-10.8)
[2023-07-11 14:34] LABS: VBG Base Excess -0.5 mmol/L; VBG HCO3 22 mmol/L (22-26); VBG pCO2 30 mmHg; VBG pH 7.46 (7.32-7.43); VBG pO2 92 mmHg
[2023-07-11 15:03] LABS: Alanine Aminotransferase 74 U/L (0-40); Albumin Level 3.8 g/dL (3.5-5.0); Alkaline Phosphatase 63 U/L (39-117); Anion Gap 14 (12-20); Aspartate Amino Transferase 111 U/L (5-37); Bilirubin Direct 0.5 mg/dL (0.0-0.5); Bilirubin Total 1.5 mg/dL (0.0-1.0); Blood Urea Nitrogen 19 mg/dL (9-16); Calcium 8.6 mg/dL (8.4-10.2); Carbon Dioxide 23 mmol/L (22-29); Chloride 101 mmol/L (96-108); Creatinine Clr Calc Pharmacy 67.9; Estimated Glomerular Filt Rate > 60; Glucose Random 192 mg/dL (60-115); Potassium 3.9 mmol/L (3.3-5.1); Sodium 134 mmol/L (135-145); Total Protein 6.5 g/dL (6.5-8.0)
[2023-07-11] MEDS: Pantoprazole Sodium 40 MG/10 ML VIAL IVPUSH ×2 (15:41→23:40)
[2023-07-11] MEDS: Potassium Chloride Packet 20 MEQ PACKET 40 MEQ PO (15:41)
[2023-07-11] MEDS: 0.9 % Sodium Chloride Flush 3 ML SYRINGE IVFLUSH (15:42)
[2023-07-11 15:59] LABS: Magnesium 2.1 mg/dL (1.6-2.6)
[2023-07-11 17:22] LABS: MANUAL DIFF FLAG NO
[2023-07-11 17:27] LABS: Basophils Absolute Auto 0.1 X10*3/uL (0.0-0.2); Basophils Percent Auto 0.7 % (0-2); Eosinophils Absolute Auto 0.2 X10*3/uL (0.0-0.4); Eosinophils Percent Auto 1.6 % (0-4); Hematocrit 43.1 % (42.0-52.0); Hemoglobin 15.1 g/dl (14.0-18.0); Imm Gran Abs Auto 0.06 X10*3/uL (0.00-0.03); Imm Gran Pct Auto 0.5 % (0.0-0.4); Lymphocytes Absolute Auto 3.1 X10*3/uL (1.2-4.9); Lymphocytes Percent Auto 27.2 % (20-40); Mean Corpuscular Volume 85.7 fL (80.0-98.0); Mean Platelet Volume 10.1 fL (9.4-12.4); Monocytes Absolute Auto 1.2 X10*3/uL (0.1-1.2); Monocytes Percent Auto 10.5 % (2-11); Neutrophils Absolute Auto 6.8 x10*3/uL (2.0-8.3); Neutrophils Percent Auto 59.5 % (45-73); Platelet Count 168 X10*3/uL (160-400); Red Blood Count 5.03 X10*6/uL (4.60-5.80); Red Cell Distribution Width 17.3 % (11.0-16.0); White Blood Count 11.4 X10*3/uL (4.8-10.8)
[2023-07-11 17:28] LABS: Basophils Absolute Auto 0.1 X10*3/uL (0.0-0.2); Basophils Percent Auto 0.8 % (0-2); Eosinophils Absolute Auto 0.2 X10*3/uL (0.0-0.4); Eosinophils Percent Auto 1.4 % (0-4); Hematocrit 42.9 % (42.0-52.0); Hemoglobin 14.8 g/dl (14.0-18.0); Imm Gran Abs Auto 0.05 X10*3/uL (0.00-0.03); Imm Gran Pct Auto 0.4 % (0.0-0.4); Lymphocytes Percent Auto 27.1 % (20-40); Mean Corpuscular HGB Conc 34.5 g/dl (31.0-36.0); Mean Corpuscular Hemoglobin 29.6 pg (27.0-33.0); Mean Corpuscular Volume 85.8 fL (80.0-98.0); Mean Platelet Volume 10.2 fL (9.4-12.4); Monocytes Absolute Auto 1.1 X10*3/uL (0.1-1.2); Monocytes Percent Auto 9.7 % (2-11); Neutrophils Absolute Auto 6.8 x10*3/uL (2.0-8.3); Neutrophils Percent Auto 60.6 % (45-73); Platelet Count 163 X10*3/uL (160-400); Red Cell Distribution Width 17.2 % (11.0-16.0); White Blood Count 11.2 X10*3/uL (4.8-10.8)
[2023-07-11] MEDS: PHENobarbitaL sodium 130 MG/ML VIAL IM Q3Hx2 185 MG IM (17:34)
[2023-07-11 17:46] LABS: Troponin-I High Sensitivity 214.3 ng/L (<3.5-35.0)
--- NOTE | 2023-07-11 19:00 | MHC.EDTECH ---
This tech took over care as PCT at 1900
[2023-07-11] MEDS: iohexoL 350 MG/ML 75 ML INFUS..BTL 80 ML IV (19:46)
--- NOTE | 2023-07-11 20:53 | PC.NURSE ---
Patient reports chest pain and headache / at present, HR 67-70 NSR on natural remedy consultant. BP's soft 95-98/55-57. Dr. Corey informed, EKG completed, Trop drawn and sent to lab for processing. Poison Prevention updated, per Angelina RN continue to monitor patient on tele, perform EKG Q 2H x2 d/t QTC QRS prolongation on EKG despite receiving IV Mg.
[2023-07-11 20:57] LABS: Troponin-I High Sensitivity 185.8 ng/L (<3.5-35.0)
--- NOTE | 2023-07-11 22:09 | PC.NURSE ---
BP's soft 90-95/60-64. Dr. Corey notified, per MD hold Phenobarbital at this time.
--- NOTE | 2023-07-11 22:23 | PM.EVENT ---
Event Note Date of Service: 07/11/23 Event Note: Was informed by radiologist that imaging concerning for GI bleed. Patient is on IV Protonix. Will change diet to NPO. Consulting Gastroenterology Time Spent With Patient Time: Total time managing care of this patient today ____ minutes.
[2023-07-12] VITALS (9 sets, daily range): BP systolic 88–133; BP diastolic 57–88; PULSE 65–88; RESP 16–20; TEMP 36.1–36.8; O2SAT 88–97
[2023-07-12] MEDS: 0.9 % Sodium Chloride 1,000 ML 999 ML IV (01:26)
[2023-07-12] MEDS: Morphine Sulfate 2 MG/ML CARTRIDGE IVPUSH (03:00)
[2023-07-12] MEDS: 0.9 % Sodium Chloride 1,000 ML 100 ML IVCONT ×3 (03:03→16:22)
[2023-07-12] MEDS: Pantoprazole Sodium 40 MG/10 ML VIAL IVPUSH ×2 (05:44→16:21)
--- NOTE | 2023-07-12 07:00 | CA_ITS ---
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 The calculated ejection fraction is 38% by biplane method. - The basal inferior, mid inferior, apical septum, mid inferoseptal, and mid anteroseptal segments are akinetic. - A bioprosthetic aortic valve is present. The prosthetic aortic valve appears to be functioning abnormally. Findings Procedure Information The study quality is limited by the patients inability to tolerate the test. Left Ventricle Normal left ventricular cavity size. There is normal left ventricular wall thickness. The left ventricular systolic function is moderately decreased. The calculated ejection fraction is 38% by biplane method. There is evidence of regional wall motion abnormalities. Evidence suggests grade II (moderate) diastolic dysfunction. Wall Motion Rest Echo Findings The basal inferior, mid inferior, apical septum, mid inferoseptal, and mid anteroseptal segments are akinetic. Right Ventricle Normal right ventricular cavity size. There is moderately decreased right ventricular systolic function. Atria The left atrium is moderately dilated. The right atrium is normal in size. Aortic Valve A bioprosthetic aortic valve is present. The prosthetic aortic valve appears to be functioning abnormally. The peak aortic velocity is 5.29 m/s with a calculated peak gradient of 112 mmHg. The mean gradient is 73 mmHg. The aortic valve area is 0.43 cm2. Elevated gradients across the bioprosthetic aortic valve. Acceleration time >130ms. Mild aortic regurgitation, unclear if valvular or para-valvular. Mitral Valve The mitral valve appears normal. There is mild mitral valve regurgitation. There is no mitral valve stenosis. Pulmonic Valve The pulmonic valve is likely normal. Tricuspid Valve There is trace tricuspid valve regurgitation. There is no evidence of pulmonary hypertension. Great Vessels The asc aorta is normal in size. Venous The inferior vena cava is normal in size and collapses greater than 50% with inspiration. Pericardium/Pleural There is a trivial pericardial effusion. Prior Study Comparison No prior study available for comparison. Measurements 2D Linear Measurements IVSd: 0.99 0.6-0.9/0.6-1.0 cm LVIDd: 5.00 3.9-5.3/4.2-5.9 cm LVIDd Index: 2.82 2.4-3.2/2.2-3.1 cm/m2 LVIDs: 3.68 2.0-3.6 cm LVPWd: 1.04 0.7-1.1 cm LA Diam: 4.30 2.7-3.8/3.0-4.0 cm LAIDs Index: 2.43 1.5-2.3 cm/m2 LV Mass: 231.48 67-162/88-224 g LV Mass Index: 130.78 43-95/49-115 g/m2 LVOT Diam: 2.00 3.0+(-)1.3 cm 2D Systolic Function EF 4C: 37.70 >55% EF 2C: 37.10 >55% EF BiP: 38.30 >55% Mitral Valve MV VTI: 0.34 MV Pk Sandip: 1.10 MV Mn Sandip: 0.61 MV Pk Grad: 5.00 MV Mn Grad: 2.00 MV Pk E: 0.90 MV PK A: 0.34 MV Decel Time: 217.00 E/A: 2.60 E'Lateral: 6.74 E'Medial: 5.22 E/E' Med: 17.10 E/E' Lat: 13.30 PHT: 64.00 MVA PHT: 3.44 MVA Continuity: 1.84 Decel Yoakum: 4.13 Aortic Valve AoV Pk Sandip: 5.29 AoV Mn Sandip: 4.10 AoV VTI: 1.44 AoV Pk Grad: 112.00 Aov Mn Grad: 73.00 HARPER Cont.VTI: 0.43 LVOT LVOT Pk Sandip: 0.72 LVOT Mn Sandip: 0.50 LVOT VTI: 0.20 LVOT Pk Grad: 2.00 LVOT Mn Grad: 1.00 LVOT Diam: 2.00 LVOT Area: 3.14 Diastolic Function MV Pk E: 0.90 MV Pk A: 0.34 E/A: 2.60 E'Medial: 5.22 E/E' Med: 17.10 E' Laterial: 6.74 E/E' Lat: 13.30 Right Ventricle TAPSE (mm): 13.60 TVS' Sandip: 7.72 Tricuspid Valve TR Pk Sandip: 2.24 TR Pk Grad: 20.00 RA Press: 3.00 RVSP: 23.00 Great Vessels Aorta Sinus of Valsalva: 2.78 2.0-3.5 cm Ao Asc: 2.80 2.1-3.4 cm Updated in Other Vendor System with Status of Final Geoff Sanderson MD electronically signed on 07/12/2023 12:34:42 PM with status of Final
--- NOTE | 2023-07-12 07:51 | HO.PM.IMPN ---
Subjective Subjective Date of Service: 07/15/23 Interval History: Complaining of intermittent chest pain since last night, feeling shaky and withdrawing from alcohol, requesting for Prozac, had 2-3 black colored stool last night, and warp tier, none today, denies nausea, no vomiting, had shortness of breath last night now resolved, is NPO due to GI bleed. Review of Systems All other system reviewed and negative Physical Exam Vital Signs: Vital Signs: Last Vital Signs Temp 97.4 F 07/12/23 07:14 Pulse 73 07/12/23 07:14 Resp 20 07/12/23 07:14 BP 102/64 07/12/23 07:14 Pulse Ox 95 07/12/23 07:14 O2 Del Method Room Air 07/12/23 07:14 BMI result Body Mass Index 25.8 Const: Other: General awake alert x3, anxious, diaphoretic, talking in full sentences Neck supple no JVD. CVS regular rate rhythm, Anterior chest wall, reproducible chest pain make chest Respiratory lungs clear to auscultation, no respiratory distress, no wheeze, no rhonchi. Gastrointestinal abdomen soft, non tender, bowel sounds audible, no guarding , no rigidity. Extremities no edema. Neuro non focal, speech clear. Skin no rash Psych anxious. Objective Data Active Medications Acetaminophen (Acetaminophen 325 Mg Tablet) 650 mg PO Q6H PRN PRN Reason: Pain, Mild (Pain Scale 1-3) Albuterol Sulfate (Albuterol Sulfate 90 Mcg 8 Gm Inhaler) 2 puff INHALE QID PRN PRN Reason: Wheezing Atorvastatin Calcium (Atorvastatin Calcium 40 Mg Tablet) 40 mg PO DAILY [facility] Sodium Chloride (Ns) 1,000 mls @ 100 mls/hr IVCONT .Q10H [facility] Last Admin: 07/12/23 03:03 Dose: 100 mls/hr Documented By: ALE Thiamine HCl 100 mg/ Sodium (Chloride) 101 mls @ 202 mls/hr IV DAILY [facility] Last Infusion: 07/11/23 13:54 Dose: Infused Documented By: FER Folic Acid 1 mg/ Sodium (Chloride) 50.2 mls @ 100.4 mls/hr IV DAILY [facility] Stop: 07/13/23 09:29 Last Infusion: 07/11/23 15:41 Dose: Infused Documented By: FER Metoprolol Tartrate (Metoprolol Tartrate 25 Mg Tablet) 25 mg PO BID [facility]; Protocol Last Admin: 07/11/23 22:23 Dose: Not Given Documented By: MAYLIN Non-Admin Reason: Decreased Blood Pressure Pantoprazole Sodium (Pantoprazole Sodium 40 Mg/10 Ml Vial) 40 mg IVPUSH BID@0630,1630 [facility] Last Admin: 07/12/23 05:44 Dose: 40 mg Documented By: ALE Pharmacy Consult (Consult Rx Etoh Phenob Im/Po) 1 each MISCELLANE ONCE PRN; Protocol PRN Reason: Consult order Phenobarbital (Phenobarbital 15 Mg Tablet) 45 mg PO BID [facility] Stop: 07/13/23 21:01 Phenobarbital (Phenobarbital 30 Mg Tablet) 30 mg PO BID [facility] Stop: 07/15/23 21:01 Phenobarbital (Phenobarbital 30 Mg Tablet) 30 mg PO DAILY [facility] Stop: 07/17/23 09:01 Senna (Sennosides 8.6 Mg Tablet) 17.2 mg PO BEDTIME PRN PRN Reason: Constipation Sodium Chloride (0.9 % Sodium Chloride Flush 3 Ml Syringe) 3 ml IVFLUSH QSHIFT [facility] Last Admin: 07/12/23 01:26 Dose: Not Given Documented By: SHEA Non-Admin Reason: IV Running Labs 07/12/23 14:47 07/12/23 13:06 Labs: Laboratory Results - last 24 hr 07/11/23 07/11/23 07/11/23 08:05 08:22 08:39 MCV 86.8 MCH 30.4 MCHC 35.0 RDW 18.7 H Plt Count 200 D MPV 9.6 Immature Gran % (Auto) 0.5 H Neut % (Auto) 73.8 H Lymph % (Auto) 14.5 L [place] % (Auto) 9.7 Eos % (Auto) 0.9 Baso % (Auto) 0.6 Lymph # (Auto) 1.7 [place] # (Auto) 1.1 Eos # (Auto) 0.1 Baso # (Auto) 0.1 Abs Immat Gran (auto) 0.06 H Absolute Neuts (auto) 8.6 H Absolute Nucleated RBC 0.000 Nucleated RBC % (auto) 0.0 PT 11.9 INR 1.0 VBG pH VBG pCO2 VBG pO2 VBG HCO3 VBG O2 Saturation VBG Base Excess Anion Gap Estim Creat Clear Calc Estimated GFR POC Glucose 114 Random Glucose Lactic Acid Calcium Magnesium Total Bilirubin Direct Bilirubin AST ALT Alkaline Phosphatase Total Creatine Kinase Troponin I High Sens 234.0 H* D Total Protein Albumin Hold Yellow Top Urine Color Urine Appearance Urine pH Ur Specific [place] Urine Protein Urine Glucose (UA) Urine Ketones Urine Blood Urine Nitrite Ur Leukocyte Esterase Urine RBC Urine WBC Ur Squamous Epith Cells Urine Bacteria Hyaline Casts Salicylates < 5.0 L Urine Opiates Screen Ur Buprenorphine Scrn Ur Oxycodone Screen Urine Methadone Screen Urine Fentanyl Screen Acetaminophen < 3 Ur Barbiturates Screen Ur Phencyclidine Scrn Ur Amphetamines Screen U Benzodiazepines Scrn Urine Cocaine Screen U Marijuana (THC) Screen Ethyl Alcohol 07/11/23 07/11/23 07/11/23 08:46 10:55 13:17 MCV MCH MCHC RDW Plt Count MPV Immature Gran % (Auto) Neut % (Auto) Lymph % (Auto) [place] % (Auto) Eos % (Auto) Baso % (Auto) Lymph # (Auto) [place] # (Auto) Eos # (Auto) Baso # (Auto) Abs Immat Gran (auto) Absolute Neuts (auto) Absolute Nucleated RBC Nucleated RBC % (auto) PT INR VBG pH VBG pCO2 VBG pO2 VBG HCO3 VBG O2 Saturation VBG Base Excess Anion Gap 26 H Estim Creat Clear Calc 59.0 Estimated GFR > 60 POC Glucose Random Glucose 99 Lactic Acid 1.3 Calcium 9.2 Magnesium 1.9 Total Bilirubin 1.7 H Direct Bilirubin AST 148 H ALT 89 H Alkaline Phosphatase 68 Total Creatine Kinase 135 Troponin I High Sens 260.0 H* Total Protein 7.2 Albumin 4.2 Hold Yellow Top See Note Urine Color Yellow Urine Appearance Cloudy Urine pH 6.5 Ur Specific [place] 1.020 Urine Protein 30 (1+) H Urine Glucose (UA) Negative Urine Ketones 80 Urine Blood Negative Urine Nitrite Negative Ur Leukocyte Esterase Trace H Urine RBC 0-2 Urine WBC 0-5 Ur Squamous Epith Cells 0-2 Urine Bacteria None Seen Hyaline Casts 0-2 Salicylates Urine Opiates Screen Not Detected Ur Buprenorphine Scrn Not Detected Ur Oxycodone Screen Not Detected Urine Methadone Screen Not Detected Urine Fentanyl Screen Not Detected Acetaminophen Ur Barbiturates Screen Not Detected Ur Phencyclidine Scrn Not Detected Ur Amphetamines Screen Not Detected U Benzodiazepines Scrn Not Detected Urine Cocaine Screen POSITIVE H U Marijuana (THC) Screen POSITIVE H Ethyl Alcohol < 10 07/11/23 07/11/23 07/11/23 14:25 14:27 17:14 MCV 85.9 85.7 MCH 29.7 MCHC 34.6 RDW 17.4 H Plt Count 173 MPV 10.1 Immature Gran % (Auto) Neut % (Auto) Lymph % (Auto) [place] % (Auto) Eos % (Auto) Baso % (Auto) Lymph # (Auto) [place] # (Auto) Eos # (Auto) Baso # (Auto) Abs Immat Gran (auto) Absolute Neuts (auto) Absolute Nucleated RBC 0.000 Nucleated RBC % (auto) 0.0 PT INR VBG pH 7.46 H VBG pCO2 30 VBG pO2 92 VBG HCO3 22 VBG O2 Saturation 99.0 VBG Base Excess -0.5 Anion Gap 14 Estim Creat Clear Calc 67.9 Estimated GFR > 60 POC Glucose Random Glucose 192 H Lactic Acid Calcium 8.6 D Magnesium 2.1 Total Bilirubin 1.5 H Direct Bilirubin 0.5 AST 111 H ALT 74 H Alkaline Phosphatase 63 Total Creatine Kinase Troponin I High Sens Total Protein 6.5 Albumin 3.8 Hold Yellow Top Urine Color Urine Appearance Urine pH Ur Specific [place] Urine Protein Urine Glucose (UA) Urine Ketones Urine Blood Urine Nitrite Ur Leukocyte Esterase Urine RBC Urine WBC Ur Squamous Epith Cells Urine Bacteria Hyaline Casts Salicylates Urine Opiates Screen Ur Buprenorphine Scrn Ur Oxycodone Screen Urine Methadone Screen Urine Fentanyl Screen Acetaminophen Ur Barbiturates Screen Ur Phencyclidine Scrn Ur Amphetamines Screen U Benzodiazepines Scrn Urine Cocaine Screen U Marijuana (THC) Screen Ethyl Alcohol 07/11/23 07/11/23 07/11/23 17:14 17:14 17:14 MCV 85.8 MCH 30.0 29.6 MCHC 35.0 34.5 RDW 17.3 H Plt Count MPV Immature Gran % (Auto) Neut % (Auto) Lymph % (Auto) [place] % (Auto) Eos % (Auto) Baso % (Auto) Lymph # (Auto) [place] # (Auto) Eos # (Auto) Baso # (Auto) Abs Immat Gran (auto) Absolute Neuts (auto) Absolute Nucleated RBC Nucleated RBC % (auto) PT INR VBG pH VBG pCO2 VBG pO2 VBG HCO3 VBG O2 Saturation VBG Base Excess Anion Gap Estim Creat Clear Calc Estimated GFR POC Glucose Random Glucose Lactic Acid Calcium Magnesium Total Bilirubin Direct Bilirubin AST ALT Alkaline Phosphatase Total Creatine Kinase Troponin I High Sens Total Protein Albumin Hold Yellow Top Urine Color Urine Appearance Urine pH Ur Specific [place] Urine Protein Urine Glucose (UA) Urine Ketones Urine Blood Urine Nitrite Ur Leukocyte Esterase Urine RBC Urine WBC Ur Squamous Epith Cells Urine Bacteria Hyaline Casts Salicylates Urine Opiates Screen Ur Buprenorphine Scrn Ur Oxycodone Screen Urine Methadone Screen Urine Fentanyl Screen Acetaminophen Ur Barbiturates Screen Ur Phencyclidine Scrn Ur Amphetamines Screen U Benzodiazepines Scrn Urine Cocaine Screen U Marijuana (THC) Screen Ethyl Alcohol 07/11/23 07/11/23 07/11/23 17:14 17:14 17:14 MCV MCH MCHC RDW 17.2 H Plt Count 168 163 MPV 10.1 10.2 Immature Gran % (Auto) 0.5 H Neut % (Auto) Lymph % (Auto) [place] % (Auto) Eos % (Auto) Baso % (Auto) Lymph # (Auto) [place] # (Auto) Eos # (Auto) Baso # (Auto) Abs Immat Gran (auto) Absolute Neuts (auto) Absolute Nucleated RBC Nucleated RBC % (auto) PT INR VBG pH VBG pCO2 VBG pO2 VBG HCO3 VBG O2 Saturation VBG Base Excess Anion Gap Estim Creat Clear Calc Estimated GFR POC Glucose Random Glucose Lactic Acid Calcium Magnesium Total Bilirubin Direct Bilirubin AST ALT Alkaline Phosphatase Total Creatine Kinase Troponin I High Sens Total Protein Albumin Hold Yellow Top Urine Color Urine Appearance Urine pH Ur Specific [place] Urine Protein Urine Glucose (UA) Urine Ketones Urine Blood Urine Nitrite Ur Leukocyte Esterase Urine RBC Urine WBC Ur Squamous Epith Cells Urine Bacteria Hyaline Casts Salicylates Urine Opiates Screen Ur Buprenorphine Scrn Ur Oxycodone Screen Urine Methadone Screen Urine Fentanyl Screen Acetaminophen Ur Barbiturates Screen Ur Phencyclidine Scrn Ur Amphetamines Screen U Benzodiazepines Scrn Urine Cocaine Screen U Marijuana (THC) Screen Ethyl Alcohol 07/11/23 07/11/23 07/11/23 17:14 17:14 17:14 MCV MCH MCHC RDW Plt Count MPV Immature Gran % (Auto) 0.4 Neut % (Auto) 59.5 60.6 Lymph % (Auto) 27.2 27.1 [place] % (Auto) 10.5 Eos % (Auto) Baso % (Auto) Lymph # (Auto) [place] # (Auto) Eos # (Auto) Baso # (Auto) Abs Immat Gran (auto) Absolute Neuts (auto) Absolute Nucleated RBC Nucleated RBC % (auto) PT INR VBG pH VBG pCO2 VBG pO2 VBG HCO3 VBG O2 Saturation VBG Base Excess Anion Gap Estim Creat Clear Calc Estimated GFR POC Glucose Random Glucose Lactic Acid Calcium Magnesium Total Bilirubin Direct Bilirubin AST ALT Alkaline Phosphatase Total Creatine Kinase Troponin I High Sens Total Protein Albumin Hold Yellow Top Urine Color Urine Appearance Urine pH Ur Specific [place] Urine Protein Urine Glucose (UA) Urine Ketones Urine Blood Urine Nitrite Ur Leukocyte Esterase Urine RBC Urine WBC Ur Squamous Epith Cells Urine Bacteria Hyaline Casts Salicylates Urine Opiates Screen Ur Buprenorphine Scrn Ur Oxycodone Screen Urine Methadone Screen Urine Fentanyl Screen Acetaminophen Ur Barbiturates Screen Ur Phencyclidine Scrn Ur Amphetamines Screen U Benzodiazepines Scrn Urine Cocaine Screen U Marijuana (THC) Screen Ethyl Alcohol 07/11/23 07/11/23 07/11/23 17:14 17:14 17:14 MCV MCH MCHC RDW Plt Count MPV Immature Gran % (Auto) Neut % (Auto) Lymph % (Auto) [place] % (Auto) 9.7 Eos % (Auto) 1.6 1.4 Baso % (Auto) 0.7 0.8 Lymph # (Auto) 3.1 [place] # (Auto) Eos # (Auto) Baso # (Auto) Abs Immat Gran (auto) Absolute Neuts (auto) Absolute Nucleated RBC Nucleated RBC % (auto) PT INR VBG pH VBG pCO2 VBG pO2 VBG HCO3 VBG O2 Saturation VBG Base Excess Anion Gap Estim Creat Clear Calc Estimated GFR POC Glucose Random Glucose Lactic Acid Calcium Magnesium Total Bilirubin Direct Bilirubin AST ALT Alkaline Phosphatase Total Creatine Kinase Troponin I High Sens Total Protein Albumin Hold Yellow Top Urine Color Urine Appearance Urine pH Ur Specific [place] Urine Protein Urine Glucose (UA) Urine Ketones Urine Blood Urine Nitrite Ur Leukocyte Esterase Urine RBC Urine WBC Ur Squamous Epith Cells Urine Bacteria Hyaline Casts Salicylates Urine Opiates Screen Ur Buprenorphine Scrn Ur Oxycodone Screen Urine Methadone Screen Urine Fentanyl Screen Acetaminophen Ur Barbiturates Screen Ur Phencyclidine Scrn Ur Amphetamines Screen U Benzodiazepines Scrn Urine Cocaine Screen U Marijuana (THC) Screen Ethyl Alcohol 07/11/23 07/11/23 07/11/23 17:14 17:14 17:14 MCV MCH MCHC RDW Plt Count MPV Immature Gran % (Auto) Neut % (Auto) Lymph % (Auto) [place] % (Auto) Eos % (Auto) Baso % (Auto) Lymph # (Auto) 3.0 [place] # (Auto) 1.2 1.1 Eos # (Auto) 0.2 0.2 Baso # (Auto) 0.1 Abs Immat Gran (auto) Absolute Neuts (auto) Absolute Nucleated RBC Nucleated RBC % (auto) PT INR VBG pH VBG pCO2 VBG pO2 VBG HCO3 VBG O2 Saturation VBG Base Excess Anion Gap Estim Creat Clear Calc Estimated GFR POC Glucose Random Glucose Lactic Acid Calcium Magnesium Total Bilirubin Direct Bilirubin AST ALT Alkaline Phosphatase Total Creatine Kinase Troponin I High Sens Total Protein Albumin Hold Yellow Top Urine Color Urine Appearance Urine pH Ur Specific [place] Urine Protein Urine Glucose (UA) Urine Ketones Urine Blood Urine Nitrite Ur Leukocyte Esterase Urine RBC Urine WBC Ur Squamous Epith Cells Urine Bacteria Hyaline Casts Salicylates Urine Opiates Screen Ur Buprenorphine Scrn Ur Oxycodone Screen Urine Methadone Screen Urine Fentanyl Screen Acetaminophen Ur Barbiturates Screen Ur Phencyclidine Scrn Ur Amphetamines Screen U Benzodiazepines Scrn Urine Cocaine Screen U Marijuana (THC) Screen Ethyl Alcohol 07/11/23 07/11/23 07/11/23 17:14 17:14 17:14 MCV MCH MCHC RDW Plt Count MPV Immature Gran % (Auto) Neut % (Auto) Lymph % (Auto) [place] % (Auto) Eos % (Auto) Baso % (Auto) Lymph # (Auto) [place] # (Auto) Eos # (Auto) Baso # (Auto) 0.1 Abs Immat Gran (auto) 0.06 H 0.05 H Absolute Neuts (auto) 6.8 6.8 Absolute Nucleated RBC 0.000 Nucleated RBC % (auto) PT INR VBG pH VBG pCO2 VBG pO2 VBG HCO3 VBG O2 Saturation VBG Base Excess Anion Gap Estim Creat Clear Calc Estimated GFR POC Glucose Random Glucose Lactic Acid Calcium Magnesium Total Bilirubin Direct Bilirubin AST ALT Alkaline Phosphatase Total Creatine Kinase Troponin I High Sens Total Protein Albumin Hold Yellow Top Urine Color Urine Appearance Urine pH Ur Specific [place] Urine Protein Urine Glucose (UA) Urine Ketones Urine Blood Urine Nitrite Ur Leukocyte Esterase Urine RBC Urine WBC Ur Squamous Epith Cells Urine Bacteria Hyaline Casts Salicylates Urine Opiates Screen Ur Buprenorphine Scrn Ur Oxycodone Screen Urine Methadone Screen Urine Fentanyl Screen Acetaminophen Ur Barbiturates Screen Ur Phencyclidine Scrn Ur Amphetamines Screen U Benzodiazepines Scrn Urine Cocaine Screen U Marijuana (THC) Screen Ethyl Alcohol 07/11/23 07/11/23 07/11/23 17:14 17:14 20:18 MCV MCH MCHC RDW Plt Count MPV Immature Gran % (Auto) Neut % (Auto) Lymph % (Auto) [place] % (Auto) Eos % (Auto) Baso % (Auto) Lymph # (Auto) [place] # (Auto) Eos # (Auto) Baso # (Auto) Abs Immat Gran (auto) Absolute Neuts (auto) Absolute Nucleated RBC 0.000 Nucleated RBC % (auto) 0.0 0.0 PT INR VBG pH VBG pCO2 VBG pO2 VBG HCO3 VBG O2 Saturation VBG Base Excess Anion Gap Estim Creat Clear Calc Estimated GFR POC Glucose Random Glucose Lactic Acid Calcium Magnesium Total Bilirubin Direct Bilirubin AST ALT Alkaline Phosphatase Total Creatine Kinase Troponin I High Sens 214.3 H* 185.8 H* Total Protein Albumin Hold Yellow Top Urine Color Urine Appearance Urine pH Ur Specific [place] Urine Protein Urine Glucose (UA) Urine Ketones Urine Blood Urine Nitrite Ur Leukocyte Esterase Urine RBC Urine WBC Ur Squamous Epith Cells Urine Bacteria Hyaline Casts Salicylates Urine Opiates Screen Ur Buprenorphine Scrn Ur Oxycodone Screen Urine Methadone Screen Urine Fentanyl Screen Acetaminophen Ur Barbiturates Screen Ur Phencyclidine Scrn Ur Amphetamines Screen U Benzodiazepines Scrn Urine Cocaine Screen U Marijuana (THC) Screen Ethyl Alcohol Assessment and Plan (1) NSTEMI (non-ST elevated myocardial infarction): Status: Acute Plan 67 year old male with history of cad s/p cabg x4 four months ago in [place], htn, hld, alcohol use disorder, MDD admitted for further management of qtc prolongation and elevated troponins following interntional buspar overdose and acute alcohol withdrawal. Reviewed old record patient has history of depression, alcohol withdrawals, prior suicidal ideation, and attempts, history of chest pains, was evaluated for same at [facility] on May 29 and on 07/03. #Intentional buspar overdose -took 20 tabs bupar 20mg , being followed with serial EKGs, telemetry showed no arrhythmia, QT interval 533 Continue to monitor on telemetry Continue sitter/care team consult once medically stable # prolonged QTC -most recent ekg qtc 533 -keep mag >2.0 (given 2g IV in ed), keep K>4.0 -monitor on tele -avoid QTC prolonging medications, DC metoprolol # non ST-elevation MD status post CABG/AVR 12/2022 in [place] Complaining of intermittent chest pain, EKG showed T-wave inversions in lead 1 and aVL, Trops trended down 234-->260- 214 and 185. Echo showed EF 38%, evidence of wall motion abnormality, grade 2 moderate diastolic dysfunction, bioprosthetic aortic valve appears to be functioning abnormally, Drug toxicology positive for cocaine, soft BP , hematemesis and multiple episodes of black stools and CT abdomen and pelvis positive for blood in cecum therefore not a candidate for IV heparin or beta-blockers. Continue supportive care Being followed by Cardiology, he spoke with Interventional Cardiology at [facility] for possible catheterization but due to ongoing issues with GI bleed/prolonged QT patient was deemed not a candidate for cardiac catheterization or acute intervention Spoke with [facility] chemical waste management technician Dr. Giselle Martinez for possible medical ICU admission but was declined due to active withdrawal/prolonged QT/gi bleed they recommend to stabilize patient in IMC with supportive care Not a candidate for beta-blockers due to prolonged QTC as well as cocaine use If BP stabilizes will use nitrates/will continue Lipitor with close LFTs monitoring Guarded prognosis #Acute GI bleed -suspect MWT/gastritis/PUD, no recurrent episodes of vomiting/had black stools x3, last episode this morning, hematocrit dropped but stable -CT abdomen and pelvis showed intraluminal contrast accumulation in the cecum suspicious for active GI bleed,likely old blood, no recurrent active bleed noted, monitor CBC -case discussed with GI no acute intervention planned since no recurrent bleed with stable H&H. -place on full liquid # acute alcohol withdrawal -drinking 2 gal vodka daily. Last drink last night around 21:00 -phenobarbital per protocol, given extra dose of phenobarb due to persistent withdrawal symptoms, will give additional IV Ativan due to persistent symptoms -monitor CIWA q.4h -continue IV thiamine, folic acid -continue IVF -addiction medicine consult # depression with recent psychiatric hospitalization and multiple visits to emergency room. -resume Prozac and hold all other medications due to prolonged QTC including BuSpar , hydroxyzine and Seroquel -psych consult DVT prophylaxis- scps due to GI bleed Called brother Azar Lee to inform him regarding patient's guarded condition at [phone] and left message full code Patient requires continued inpatient hospitalization for management of drug overdose with prolonged QT, alcohol withdrawal/non ST elevation MD in the setting of alcohol use and history of CABG/aortic valve replacement , As well as GI bleed requiring close CBC monitoring. Requires close clinical monitoring in telemetry with follow-up of CBC Quality Stroke Does the patient have a stroke diagnosis?: No VTE Prior VTE?: No VTE Risk Level:: Medical - moderate - high VTE Device Contraindication: N/A - Device Ordered VTE Drug Contraindication: Treatment Not Indicated
--- NOTE | 2023-07-12 08:54 | ECG_ITS ---
Test Reason : chest pain Blood Pressure : / mmHG Vent. Rate : 073 BPM Atrial Rate : 073 BPM P-R Int : 136 ms QRS Dur : 102 ms QT Int : 484 ms P-R-T Axes : 072 007 120 degrees QTc Int : 533 ms Normal sinus rhythm Minimal voltage criteria for LVH, may be normal variant ( [place] product ) ST & T wave abnormality, consider lateral ischemia Prolonged QT Abnormal ECG When compared with ECG of 12-JUL-2023 02:33, Criteria for Anteroseptal infarct are no longer Present Referred By: Brissa Treviño Electronically Signed By:BRISSA TREVIÑO
[2023-07-12] MEDS: PHENobarbitaL 15 MG TABLET 45 MG PO (09:02)
[2023-07-12] MEDS: Atorvastatin Calcium 40 MG TABLET PO (09:02)
[2023-07-12] MEDS: Metoprolol Tartrate 25 MG TABLET PO (09:02)
[2023-07-12] MEDS: Thiamine HCL 100 MG in 0.9 % Sodium Chloride 100 ML 202 MG IV (09:03)
[2023-07-12] MEDS: 0.9 % Sodium Chloride Flush 3 ML SYRINGE IVFLUSH ×3 (09:15→16:21)
--- NOTE | 2023-07-12 09:42 | MHC.CM.PN ---
IMM 07/12/23, PT ADMITTED W/BUSPAR OD/GI BLEED. CM MET W/PT WHO REPORTS HE RELOCATED FROM [place] ONE MONTH AGO D/T BEING FROM [facility] AND HAVING 8 GKIDS BUT HAS NOT SEEN THEM, PT DENIES USE OF DME.SERVICES. PT HAS BEEN PAYING TO LIVE AT [facility] HOWEVER CURRENTLY W/+SI AND WOULD LIKE PSYCH IPLOC, PT WILL NEED CARETEAM ONCE MEDICALLY CLEARED. PT VERIFIES HE HAS NO PCP AND HAS BEEN EDUCATED ON AND DECLINES TO COMPLETE A HCP AT THIS TIME, PT AWARE HE CAN REQUEST CM IF HE CHANGES HIS MIND.
--- NOTE | 2023-07-12 09:48 | PM.CNCAR ---
History of Present Illness History of Present Illness Date of Service: 07/12/23 Chief complaint: Buspar overdose, prolonged atc, gi bleed Narrative: This is a cardiology consultation regarding QT prolongation. Patient essentially came because of intentional Buspar overdose. History of alcohol dependence with multiple periods of sobriety. However, relapsed few weeks back and has been drinking 2 gal of vodka daily. He apparently felt very depressed and took almost 20-25 tablets of buspirone. Then, he was reporting epigastric pain with heartburn. He was seen in the ER and had some troponin elevation. EKG showed prolonged QT and hence he was admitted to the hospital. Currently, he seems quite restless and agitated. According to him, he has had bypass surgery few months back. We were able to get a faxed report. It seems that he underwent CABG/AVR in [place] in December 2022. It seems that he was having shortness of breath and angina and further workup had shown severe three-vessel disease and aortic stenosis leading to the operation. Patient now states that his family live in this area and hence he moved here. Review of Systems Review of Systems: Yes all other systems are reviewed and are negative Constitutional: Constitutional: Reports as per HPI and Reports no additional constitutional complaints Eyes: Eyes: Reports as per HPI and Denies no additional eye complaints ENT: Denies system reviewed and no additional complaints, except as documented and Reports as per HPI Cardiovascular: Cardiovascular: Reports as per HPI, Reports no additional cardiovascular complaints, Denies acrocyanosis, Denies cool extremities, Denies chest pain, Denies leg edema, Denies lightheadedness, Denies palpitations and Denies dyspnea Respiratory: Respiratory: Reports as per HPI, Denies no additional respiratory complaints and Denies dyspnea Gastrointestinal: Gastrointestinal: Reports as per HPI and Denies no additional gastrointestinal complaints Genitourinary: Genitourinary: Reports no additional male genitourinary complaints and Reports as per HPI Musculoskeletal: Musculoskeletal: Reports no additional musculoskeletal complaints and Reports as per HPI Integumentary/Breasts: Skin/Breast: Reports system reviewed and no additional complaints, except as docu Neurologic: Reports system reviewed and no additional complaints, except as documented and Reports as per HPI Psychiatric: Psychiatric: Reports no additional psychiatric complaints and Reports as per HPI Endocrine: Endocrine: Reports no additional endocrine complaints, Reports as per HPI and Denies palpitations Hematologic/Lymphatic: Hematologic/Lymphatic: Reports no additional hematologic/lymphatic complaints and Reports as per HPI Allergic/Immunologic: Allergic/Immunologic: Reports no additional allergic/immunologic complaints and Reports as per HPI [facility] Past Medical History Medical History Depression CAD (coronary artery disease) Family History Pertinent family history: No pertinent family history Surgical History Surgical History Heart valve replaced S/P CABG x 4 Social History Social History Household Members: None Household Members Other:: Homeless staying in hotel Housing: Other Do you presently have visiting nurse or other home services: No Alcohol intake: current Alcohol intake frequency: 3 or more drinks per day Alcohol type: hard liquor Patient Tobacco Use Status: Current everyday Tobacco user Tobacco use type: Cigarette Cigarette Packs Per Day: 5 Cigarettes Per Day: 4 Years Smoked: 50 Smoked in Last 30 Days: Yes e-Cigarette/Vaping Use: Former Use Patient Interested in Nicotine Replacement: Yes Second Hand Smoke Exposure: No Use of substances other than those prescribed or required for medical reasons: Yes Substance Use Type: Marijuana Have you been hit, kicked, punched, or otherwise hurt by someone within the past year? If so, by whom?: No Is there a partner from a previous relationship who is making you feel unsafe now?: No Are you made to feel afraid or neglected: No Advance Directives: No Advance Directives Information Provided: No Do you have a plan to hurt others: Organized Nutrition Risks: No Nutritional Risk service: No Sexual orientation: Straight/Heterosexual Meds Allergies Allergy/AdvReac Type Severity Reaction Status Date / Time No Known Allergies Allergy Verified 07/11/23 07:39 Active Medications: Current Medications Acetaminophen (Acetaminophen 325 Mg Tablet) 650 mg PO Q6H PRN PRN Reason: Pain, Mild (Pain Scale 1-3) Albuterol Sulfate (Albuterol Sulfate 90 Mcg 8 Gm Inhaler) 2 puff INHALE QID PRN PRN Reason: Wheezing Atorvastatin Calcium (Atorvastatin Calcium 40 Mg Tablet) 40 mg PO DAILY [facility] Last Admin: 07/12/23 09:02 Dose: 40 mg Sodium Chloride (Ns) 1,000 mls @ 100 mls/hr IVCONT .Q10H [facility] Last Admin: 07/12/23 03:03 Dose: 100 mls/hr Thiamine HCl 100 mg/ Sodium (Chloride) 101 mls @ 202 mls/hr IV DAILY [facility] Last Admin: 07/12/23 09:03 Dose: 202 mls/hr Folic Acid 1 mg/ Sodium (Chloride) 50.2 mls @ 100.4 mls/hr IV DAILY [facility] Stop: 07/13/23 09:29 Last Infusion: 07/11/23 15:41 Dose: Infused Metoprolol Tartrate (Metoprolol Tartrate 25 Mg Tablet) 25 mg PO BID [facility]; Protocol Last Admin: 07/12/23 09:02 Dose: 25 mg Pantoprazole Sodium (Pantoprazole Sodium 40 Mg/10 Ml Vial) 40 mg IVPUSH BID@0630,1630 [facility] Last Admin: 07/12/23 05:44 Dose: 40 mg Pharmacy Consult (Consult Rx Etoh Phenob Im/Po) 1 each MISCELLANE ONCE PRN; Protocol PRN Reason: Consult order Phenobarbital (Phenobarbital 15 Mg Tablet) 45 mg PO BID [facility] Stop: 07/13/23 21:01 Last Admin: 07/12/23 09:02 Dose: 45 mg Phenobarbital (Phenobarbital 30 Mg Tablet) 30 mg PO BID [facility] Stop: 07/15/23 21:01 Phenobarbital (Phenobarbital 30 Mg Tablet) 30 mg PO DAILY [facility] Stop: 07/17/23 09:01 Senna (Sennosides 8.6 Mg Tablet) 17.2 mg PO BEDTIME PRN PRN Reason: Constipation Sodium Chloride (0.9 % Sodium Chloride Flush 3 Ml Syringe) 3 ml IVFLUSH QSHIFT [facility] Last Admin: 07/12/23 09:15 Dose: 3 ml Physical Exam Vital Signs: Vital Signs: Last Vital Signs Temp 97.4 F 07/12/23 07:14 Pulse 73 07/12/23 07:14 Resp 20 07/12/23 07:14 BP 102/64 07/12/23 07:14 Pulse Ox 95 07/12/23 07:14 O2 Del Method Room Air 07/12/23 07:14 BMI result Body Mass Index 25.8 Const: General: comfortable and no acute distress Orientation/consciousness: patient oriented x3 HEENT: Other: Unremarkable Head: Yes normal to inspection Neck: Neck: Yes normal visual inspection Chest: Chest palpation & inspection: normal inspection of the chest Resp: Auscultation: clear to auscultation bilaterally Cardio: Palpation: normal PMI Heart sounds: S1 normal heart sound present, S2 abnormal (Soft), no gallops, Murmur heart sound present systolic III/, at the apex and at the right sternal border and no rubs GI: Palpation (GI): Soft to palpation Back/Spine/Pelvis: Other: unremarkable Skin: General skin exam: no rashes or lesions noted Neuro: General: patient oriented x3 Extrem: General: Yes normal to inspection Psych: Mental Status: mental status grossly normal Objective Labs and Meds 07/11/23 17:14 07/11/23 14:25 Lab results: Laboratory Results - last 24 hr 07/11/23 07/11/23 07/11/23 08:46 10:55 13:17 WBC RBC Hgb Hct MCV MCH MCHC RDW Plt Count MPV Immature Gran % (Auto) Neut % (Auto) Lymph % (Auto) [place] % (Auto) Eos % (Auto) Baso % (Auto) Lymph # (Auto) [place] # (Auto) Eos # (Auto) Baso # (Auto) Abs Immat Gran (auto) Absolute Neuts (auto) Absolute Nucleated RBC Nucleated RBC % (auto) VBG pH VBG pCO2 VBG pO2 VBG HCO3 VBG O2 Saturation VBG Base Excess Sodium 137 Potassium 4.5 Chloride 98 Carbon Dioxide 18 L Anion Gap 26 H BUN 24 H Creatinine 1.07 Estim Creat Clear Calc 59.0 Estimated GFR > 60 Random Glucose 99 Calcium 9.2 Magnesium 1.9 Total Bilirubin 1.7 H Direct Bilirubin AST 148 H ALT 89 H Alkaline Phosphatase 68 Troponin I High Sens 260.0 H* Total Protein 7.2 Albumin 4.2 Urine Color Yellow Urine Appearance Cloudy Urine pH 6.5 Ur Specific Natalia 1.020 Urine Protein 30 (1+) H Urine Glucose (UA) Negative Urine Ketones 80 Urine Blood Negative Urine Nitrite Negative Ur Leukocyte Esterase Trace H Urine RBC 0-2 Urine WBC 0-5 Ur Squamous Epith Cells 0-2 Urine Bacteria None Seen Hyaline Casts 0-2 Urine Opiates Screen Not Detected Ur Buprenorphine Scrn Not Detected Ur Oxycodone Screen Not Detected Urine Methadone Screen Not Detected Urine Fentanyl Screen Not Detected Ur Barbiturates Screen Not Detected Ur Phencyclidine Scrn Not Detected Ur Amphetamines Screen Not Detected U Benzodiazepines Scrn Not Detected Urine Cocaine Screen POSITIVE H U Marijuana (THC) Screen POSITIVE H Ethyl Alcohol < 10 07/11/23 07/11/23 07/11/23 14:25 14:27 17:14 WBC 11.5 H 11.4 H RBC 5.02 Hgb 14.9 Hct 43.1 MCV 85.9 MCH 29.7 MCHC 34.6 RDW 17.4 H Plt Count 173 MPV 10.1 Immature Gran % (Auto) Neut % (Auto) Lymph % (Auto) [place] % (Auto) Eos % (Auto) Baso % (Auto) Lymph # (Auto) [place] # (Auto) Eos # (Auto) Baso # (Auto) Abs Immat Gran (auto) Absolute Neuts (auto) Absolute Nucleated RBC 0.000 Nucleated RBC % (auto) 0.0 VBG pH 7.46 H VBG pCO2 30 VBG pO2 92 VBG HCO3 22 VBG O2 Saturation 99.0 VBG Base Excess -0.5 Sodium 134 L Potassium 3.9 Chloride 101 Carbon Dioxide 23 Anion Gap 14 BUN 19 H Creatinine 0.93 Estim Creat Clear Calc 67.9 Estimated GFR > 60 Random Glucose 192 H Calcium 8.6 D Magnesium 2.1 Total Bilirubin 1.5 H Direct Bilirubin 0.5 AST 111 H ALT 74 H Alkaline Phosphatase 63 Troponin I High Sens Total Protein 6.5 Albumin 3.8 Urine Color Urine Appearance Urine pH Ur Specific Natalia Urine Protein Urine Glucose (UA) Urine Ketones Urine Blood Urine Nitrite Ur Leukocyte Esterase Urine RBC Urine WBC Ur Squamous Epith Cells Urine Bacteria Hyaline Casts Urine Opiates Screen Ur Buprenorphine Scrn Ur Oxycodone Screen Urine Methadone Screen Urine Fentanyl Screen Ur Barbiturates Screen Ur Phencyclidine Scrn Ur Amphetamines Screen U Benzodiazepines Scrn Urine Cocaine Screen U Marijuana (THC) Screen Ethyl Alcohol 07/11/23 07/11/23 07/11/23 17:14 17:14 17:14 WBC 11.2 H RBC 5.03 5.00 Hgb 15.1 14.8 Hct 43.1 MCV MCH MCHC RDW Plt Count MPV Immature Gran % (Auto) Neut % (Auto) Lymph % (Auto) [place] % (Auto) Eos % (Auto) Baso % (Auto) Lymph # (Auto) [place] # (Auto) Eos # (Auto) Baso # (Auto) Abs Immat Gran (auto) Absolute Neuts (auto) Absolute Nucleated RBC Nucleated RBC % (auto) VBG pH VBG pCO2 VBG pO2 VBG HCO3 VBG O2 Saturation VBG Base Excess Sodium Potassium Chloride Carbon Dioxide Anion Gap BUN Creatinine Estim Creat Clear Calc Estimated GFR Random Glucose Calcium Magnesium Total Bilirubin Direct Bilirubin AST ALT Alkaline Phosphatase Troponin I High Sens Total Protein Albumin Urine Color Urine Appearance Urine pH Ur Specific Natalia Urine Protein Urine Glucose (UA) Urine Ketones Urine Blood Urine Nitrite Ur Leukocyte Esterase Urine RBC Urine WBC Ur Squamous Epith Cells Urine Bacteria Hyaline Casts Urine Opiates Screen Ur Buprenorphine Scrn Ur Oxycodone Screen Urine Methadone Screen Urine Fentanyl Screen Ur Barbiturates Screen Ur Phencyclidine Scrn Ur Amphetamines Screen U Benzodiazepines Scrn Urine Cocaine Screen U Marijuana (THC) Screen Ethyl Alcohol 07/11/23 07/11/23 07/11/23 17:14 17:14 17:14 WBC RBC Hgb Hct 42.9 MCV 85.7 85.8 MCH 30.0 29.6 MCHC 35.0 RDW Plt Count MPV Immature Gran % (Auto) Neut % (Auto) Lymph % (Auto) [place] % (Auto) Eos % (Auto) Baso % (Auto) Lymph # (Auto) [place] # (Auto) Eos # (Auto) Baso # (Auto) Abs Immat Gran (auto) Absolute Neuts (auto) Absolute Nucleated RBC Nucleated RBC % (auto) VBG pH VBG pCO2 VBG pO2 VBG HCO3 VBG O2 Saturation VBG Base Excess Sodium Potassium Chloride Carbon Dioxide Anion Gap BUN Creatinine Estim Creat Clear Calc Estimated GFR Random Glucose Calcium Magnesium Total Bilirubin Direct Bilirubin AST ALT Alkaline Phosphatase Troponin I High Sens Total Protein Albumin Urine Color Urine Appearance Urine pH Ur Specific Natalia Urine Protein Urine Glucose (UA) Urine Ketones Urine Blood Urine Nitrite Ur Leukocyte Esterase Urine RBC Urine WBC Ur Squamous Epith Cells Urine Bacteria Hyaline Casts Urine Opiates Screen Ur Buprenorphine Scrn Ur Oxycodone Screen Urine Methadone Screen Urine Fentanyl Screen Ur Barbiturates Screen Ur Phencyclidine Scrn Ur Amphetamines Screen U Benzodiazepines Scrn Urine Cocaine Screen U Marijuana (THC) Screen Ethyl Alcohol 07/11/23 07/11/23 07/11/23 17:14 17:14 17:14 WBC RBC Hgb Hct MCV MCH MCHC 34.5 RDW 17.3 H 17.2 H Plt Count 168 163 MPV 10.1 Immature Gran % (Auto) Neut % (Auto) Lymph % (Auto) [place] % (Auto) Eos % (Auto) Baso % (Auto) Lymph # (Auto) [place] # (Auto) Eos # (Auto) Baso # (Auto) Abs Immat Gran (auto) Absolute Neuts (auto) Absolute Nucleated RBC Nucleated RBC % (auto) VBG pH VBG pCO2 VBG pO2 VBG HCO3 VBG O2 Saturation VBG Base Excess Sodium Potassium Chloride Carbon Dioxide Anion Gap BUN Creatinine Estim Creat Clear Calc Estimated GFR Random Glucose Calcium Magnesium Total Bilirubin Direct Bilirubin AST ALT Alkaline Phosphatase Troponin I High Sens Total Protein Albumin Urine Color Urine Appearance Urine pH Ur Specific Natalia Urine Protein Urine Glucose (UA) Urine Ketones Urine Blood Urine Nitrite Ur Leukocyte Esterase Urine RBC Urine WBC Ur Squamous Epith Cells Urine Bacteria Hyaline Casts Urine Opiates Screen Ur Buprenorphine Scrn Ur Oxycodone Screen Urine Methadone Screen Urine Fentanyl Screen Ur Barbiturates Screen Ur Phencyclidine Scrn Ur Amphetamines Screen U Benzodiazepines Scrn Urine Cocaine Screen U Marijuana (THC) Screen Ethyl Alcohol 07/11/23 07/11/23 07/11/23 17:14 17:14 17:14 WBC RBC Hgb Hct MCV MCH MCHC RDW Plt Count MPV 10.2 Immature Gran % (Auto) 0.5 H 0.4 Neut % (Auto) 59.5 60.6 Lymph % (Auto) 27.2 Hamlin % (Auto) Eos % (Auto) Baso % (Auto) Lymph # (Auto) [place] # (Auto) Eos # (Auto) Baso # (Auto) Abs Immat Gran (auto) Absolute Neuts (auto) Absolute Nucleated RBC Nucleated RBC % (auto) VBG pH VBG pCO2 VBG pO2 VBG HCO3 VBG O2 Saturation VBG Base Excess Sodium Potassium Chloride Carbon Dioxide Anion Gap BUN Creatinine Estim Creat Clear Calc Estimated GFR Random Glucose Calcium Magnesium Total Bilirubin Direct Bilirubin AST ALT Alkaline Phosphatase Troponin I High Sens Total Protein Albumin Urine Color Urine Appearance Urine pH Ur Specific Natalia Urine Protein Urine Glucose (UA) Urine Ketones Urine Blood Urine Nitrite Ur Leukocyte Esterase Urine RBC Urine WBC Ur Squamous Epith Cells Urine Bacteria Hyaline Casts Urine Opiates Screen Ur Buprenorphine Scrn Ur Oxycodone Screen Urine Methadone Screen Urine Fentanyl Screen Ur Barbiturates Screen Ur Phencyclidine Scrn Ur Amphetamines Screen U Benzodiazepines Scrn Urine Cocaine Screen U Marijuana (THC) Screen Ethyl Alcohol 07/11/23 07/11/23 07/11/23 17:14 17:14 17:14 WBC RBC Hgb Hct MCV MCH MCHC RDW Plt Count MPV Immature Gran % (Auto) Neut % (Auto) Lymph % (Auto) 27.1 [place]lin % (Auto) 10.5 9.7 Eos % (Auto) 1.6 1.4 Baso % (Auto) 0.7 Lymph # (Auto) [place] # (Auto) Eos # (Auto) Baso # (Auto) Abs Immat Gran (auto) Absolute Neuts (auto) Absolute Nucleated RBC Nucleated RBC % (auto) VBG pH VBG pCO2 VBG pO2 VBG HCO3 VBG O2 Saturation VBG Base Excess Sodium Potassium Chloride Carbon Dioxide Anion Gap BUN Creatinine Estim Creat Clear Calc Estimated GFR Random Glucose Calcium Magnesium Total Bilirubin Direct Bilirubin AST ALT Alkaline Phosphatase Troponin I High Sens Total Protein Albumin Urine Color Urine Appearance Urine pH Ur Specific Natalia Urine Protein Urine Glucose (UA) Urine Ketones Urine Blood Urine Nitrite Ur Leukocyte Esterase Urine RBC Urine WBC Ur Squamous Epith Cells Urine Bacteria Hyaline Casts Urine Opiates Screen Ur Buprenorphine Scrn Ur Oxycodone Screen Urine Methadone Screen Urine Fentanyl Screen Ur Barbiturates Screen Ur Phencyclidine Scrn Ur Amphetamines Screen U Benzodiazepines Scrn Urine Cocaine Screen U Marijuana (THC) Screen Ethyl Alcohol 07/11/23 07/11/23 07/11/23 17:14 17:14 17:14 WBC RBC Hgb Hct MCV MCH MCHC RDW Plt Count MPV Immature Gran % (Auto) Neut % (Auto) Lymph % (Auto) [place] % (Auto) Eos % (Auto) Baso % (Auto) 0.8 Lymph # (Auto) 3.1 3.0 [place]lin # (Auto) 1.2 1.1 Eos # (Auto) 0.2 Baso # (Auto) Abs Immat Gran (auto) Absolute Neuts (auto) Absolute Nucleated RBC Nucleated RBC % (auto) VBG pH VBG pCO2 VBG pO2 VBG HCO3 VBG O2 Saturation VBG Base Excess Sodium Potassium Chloride Carbon Dioxide Anion Gap BUN Creatinine Estim Creat Clear Calc Estimated GFR Random Glucose Calcium Magnesium Total Bilirubin Direct Bilirubin AST ALT Alkaline Phosphatase Troponin I High Sens Total Protein Albumin Urine Color Urine Appearance Urine pH Ur Specific Natalia Urine Protein Urine Glucose (UA) Urine Ketones Urine Blood Urine Nitrite Ur Leukocyte Esterase Urine RBC Urine WBC Ur Squamous Epith Cells Urine Bacteria Hyaline Casts Urine Opiates Screen Ur Buprenorphine Scrn Ur Oxycodone Screen Urine Methadone Screen Urine Fentanyl Screen Ur Barbiturates Screen Ur Phencyclidine Scrn Ur Amphetamines Screen U Benzodiazepines Scrn Urine Cocaine Screen U Marijuana (THC) Screen Ethyl Alcohol 07/11/23 07/11/23 07/11/23 17:14 17:14 17:14 WBC RBC Hgb Hct MCV MCH MCHC RDW Plt Count MPV Immature Gran % (Auto) Neut % (Auto) Lymph % (Auto) [place] % (Auto) Eos % (Auto) Baso % (Auto) Lymph # (Auto) [place]lin # (Auto) Eos # (Auto) 0.2 Baso # (Auto) 0.1 0.1 Abs Immat Gran (auto) 0.06 H 0.05 H Absolute Neuts (auto) 6.8 Absolute Nucleated RBC Nucleated RBC % (auto) VBG pH VBG pCO2 VBG pO2 VBG HCO3 VBG O2 Saturation VBG Base Excess Sodium Potassium Chloride Carbon Dioxide Anion Gap BUN Creatinine Estim Creat Clear Calc Estimated GFR Random Glucose Calcium Magnesium Total Bilirubin Direct Bilirubin AST ALT Alkaline Phosphatase Troponin I High Sens Total Protein Albumin Urine Color Urine Appearance Urine pH Ur Specific Natalia Urine Protein Urine Glucose (UA) Urine Ketones Urine Blood Urine Nitrite Ur Leukocyte Esterase Urine RBC Urine WBC Ur Squamous Epith Cells Urine Bacteria Hyaline Casts Urine Opiates Screen Ur Buprenorphine Scrn Ur Oxycodone Screen Urine Methadone Screen Urine Fentanyl Screen Ur Barbiturates Screen Ur Phencyclidine Scrn Ur Amphetamines Screen U Benzodiazepines Scrn Urine Cocaine Screen U Marijuana (THC) Screen Ethyl Alcohol 07/11/23 07/11/23 07/11/23 17:14 17:14 17:14 WBC RBC Hgb Hct MCV MCH MCHC RDW Plt Count MPV Immature Gran % (Auto) Neut % (Auto) Lymph % (Auto) [place] % (Auto) Eos % (Auto) Baso % (Auto) Lymph # (Auto) [place] # (Auto) Eos # (Auto) Baso # (Auto) Abs Immat Gran (auto) Absolute Neuts (auto) 6.8 Absolute Nucleated RBC 0.000 0.000 Nucleated RBC % (auto) 0.0 0.0 VBG pH VBG pCO2 VBG pO2 VBG HCO3 VBG O2 Saturation VBG Base Excess Sodium Potassium Chloride Carbon Dioxide Anion Gap BUN Creatinine Estim Creat Clear Calc Estimated GFR Random Glucose Calcium Magnesium Total Bilirubin Direct Bilirubin AST ALT Alkaline Phosphatase Troponin I High Sens 214.3 H* Total Protein Albumin Urine Color Urine Appearance Urine pH Ur Specific Natalia Urine Protein Urine Glucose (UA) Urine Ketones Urine Blood Urine Nitrite Ur Leukocyte Esterase Urine RBC Urine WBC Ur Squamous Epith Cells Urine Bacteria Hyaline Casts Urine Opiates Screen Ur Buprenorphine Scrn Ur Oxycodone Screen Urine Methadone Screen Urine Fentanyl Screen Ur Barbiturates Screen Ur Phencyclidine Scrn Ur Amphetamines Screen U Benzodiazepines Scrn Urine Cocaine Screen U Marijuana (THC) Screen Ethyl Alcohol 07/11/23 20:18 WBC RBC Hgb Hct MCV MCH MCHC RDW Plt Count MPV Immature Gran % (Auto) Neut % (Auto) Lymph % (Auto) [place]lin % (Auto) Eos % (Auto) Baso % (Auto) Lymph # (Auto) [place] # (Auto) Eos # (Auto) Baso # (Auto) Abs Immat Gran (auto) Absolute Neuts (auto) Absolute Nucleated RBC Nucleated RBC % (auto) VBG pH VBG pCO2 VBG pO2 VBG HCO3 VBG O2 Saturation VBG Base Excess Sodium Potassium Chloride Carbon Dioxide Anion Gap BUN Creatinine Estim Creat Clear Calc Estimated GFR Random Glucose Calcium Magnesium Total Bilirubin Direct Bilirubin AST ALT Alkaline Phosphatase Troponin I High Sens 185.8 H* Total Protein Albumin Urine Color Urine Appearance Urine pH Ur Specific Natalia Urine Protein Urine Glucose (UA) Urine Ketones Urine Blood Urine Nitrite Ur Leukocyte Esterase Urine RBC Urine WBC Ur Squamous Epith Cells Urine Bacteria Hyaline Casts Urine Opiates Screen Ur Buprenorphine Scrn Ur Oxycodone Screen Urine Methadone Screen Urine Fentanyl Screen Ur Barbiturates Screen Ur Phencyclidine Scrn Ur Amphetamines Screen U Benzodiazepines Scrn Urine Cocaine Screen U Marijuana (THC) Screen Ethyl Alcohol ECG Interpretation: In the most recent EKG from this morning, sinus rhythm with a corrected QT of 533 milliseconds. There is lateral T inversions in lead 1 and aVL. In the EKG from yesterday, difficult to assess corrected QT as this probably and U wave as well following the T-wave and hence the exact termination of T-wave is not very clear. Seem to be okay in some EKGs but prolonged in the others. In a prior EKG from May of this year, corrected QT was within normal limits. Imaging Radiologist's impression: Impressions Abdomen/Pelvis CT 07/11/23 19:56 IMPRESSION: 1. Intraluminal contrast accumulation in the cecum, suspicious for active GI bleed. 2. Equivocal mild rectal wall thickening without significant perirectal fat stranding. Correlate clinically for proctitis. 3. Diverticulosis but no evidence of acute diverticulitis. 4. Hepatic steatosis. 5. Trace amount of free fluid in the pelvis. This critical result was discussed with Dr Madhav Guthrie at 07/11/2023 10:09 PM and it was ascertained that the content and urgency of the report was understood at the time of direct communication. Assessment and Plan (1) Prolonged Q-T interval on ECG: Status: Acute (2) NSTEMI (non-ST elevated myocardial infarction): Status: Acute (3) Alcohol withdrawal: Qualifiers: Complication of substance-induced condition: uncomplicated Qualified Code(s): F10.930 - Alcohol use, unspecified with withdrawal, uncomplicated Status: Acute (4) Overdose: Qualifiers: Encounter type: initial encounter Injury intent: accidental or unintentional Qualified Code(s): T50.901A - Poisoning by unspecified drugs, medicaments and biological substances, accidental (unintentional), initial encounter Status: Acute (5) Major depression, recurrent, chronic: Status: Acute Plan Troponin levels are 234, 260, 214 and 185. Previously, within normal limits. As mentioned above, QT prolongation evident on the EKG. History of CABG/AVR from 12/2022. Currently, he seems restless and likely withdrawing. Overall, suspect demand related NSTEMI in the setting of intentional drug overdose as well as alcohol withdrawal. QT prolongation could also be related to drugs as he is on several psychotropic medication. Will review echocardiogram for LV function, wall motion as well as to assess the bioprosthetic aortic valve. His hemoglobin seems okay but there is a question of GI bleed based on the CT scan. Hence not clear if he will be suitable for IV heparin or not. Otherwise, may hold beta-blockers as any bradycardia will further prolong the QT and could lead to ventricular arrhythmias. Treat his alcohol withdrawal and will need to assess if medication he takes for QT prolongation effects. We will follow with you. Discussed with Dr. Gentile. Procedures Date of Service Date of Service: 07/12/23
[2023-07-12] MEDS: Folic Acid 1 MG in 0.9 % Sodium Chloride 50 ML 100.4 MG IV (12:22)
[2023-07-12] MEDS: PHENobarbitaL sodium 130 MG/ML VIAL 65 MG IM (13:10)
[2023-07-12] MEDS: FLUoxetine HCl 20 MG CAPSULE 40 MG PO (13:18)
[2023-07-12] MEDS: Albumin Human 25 % 100 ML IV ×2 (13:20→13:35)
[2023-07-12 13:51] LABS: Anion Gap 15 (12-20); Blood Urea Nitrogen 12 mg/dL (9-16); Calcium 8.4 mg/dL (8.4-10.2); Carbon Dioxide 15 mmol/L (22-29); Chloride 109 mmol/L (96-108); Estimated Glomerular Filt Rate > 60; Glucose Random 155 mg/dL (60-115); Potassium 4.2 mmol/L (3.3-5.1); Sodium 135 mmol/L (135-145)
[2023-07-12 15:00] LABS: Basophils Absolute Auto 0.1 X10*3/uL (0.0-0.2); Basophils Percent Auto 1.1 % (0-2); Eosinophils Absolute Auto 0.2 X10*3/uL (0.0-0.4); Eosinophils Percent Auto 1.6 % (0-4); Hematocrit 38.9 % (42.0-52.0); Hemoglobin 13.7 g/dl (14.0-18.0); Imm Gran Abs Auto 0.05 X10*3/uL (0.00-0.03); Imm Gran Pct Auto 0.4 % (0.0-0.4); Lymphocytes Absolute Auto 2.1 X10*3/uL (1.2-4.9); Lymphocytes Percent Auto 17.4 % (20-40); Mean Corpuscular HGB Conc 35.2 g/dl (31.0-36.0); Mean Corpuscular Hemoglobin 30.8 pg (27.0-33.0); Mean Corpuscular Volume 87.4 fL (80.0-98.0); Mean Platelet Volume 10.4 fL (9.4-12.4); Monocytes Absolute Auto 1.2 X10*3/uL (0.1-1.2); Monocytes Percent Auto 9.4 % (2-11); Neutrophils Absolute Auto 8.6 x10*3/uL (2.0-8.3); Neutrophils Percent Auto 70.1 % (45-73); Platelet Count 142 X10*3/uL (160-400); Red Blood Count 4.45 X10*6/uL (4.60-5.80); Red Cell Distribution Width 17.2 % (11.0-16.0); White Blood Count 12.2 X10*3/uL (4.8-10.8)
--- NOTE | 2023-07-12 15:17 | MHC.CM.PN ---
Per [facility] notes pt has an appt w/psych provider w/rangel Kaba 07/27 9am, pt also had a therapy appt w/Madelyn Zhang on 06/23, cm will check in w/pt to see if he attended.
[2023-07-12] MEDS: Morphine Sulfate 4 MG/ML CARTRIDGE 3 MG IVPUSH (16:20)
[2023-07-12] MEDS: busPIRone HCl 10 MG TABLET 20 MG PO (16:20)
[2023-07-12] MEDS: Potassium Chloride/H20 10 MEQ/100 ML PIGGYBACK 100 MEQ IV (16:21)
[2023-07-12] MEDS: LORazepam 2 MG/ML VIAL 1 MG IVPUSH (16:39)
[2023-07-12 16:59] LABS: Glucose, Whole Blood 198 mg/dL (60-115)
--- NOTE | 2023-07-12 17:31 | PM.EVENT ---
Event Note Date of Service: 07/12/23 Event Note: Code teddy called at 16:57 Patient was immediately started on CPR/intubated received 4 doses of epinephrine/2 g of magnesium/1 amp of bicarb Patient remained pulseless Please see notes He was pronounced at 5:13 p.m. Had no pulse, no respirations Pupils dilated Called and notified patient's brother Azar Lee [phone] and notified him about patient's passing, brother knew it was coming since he was aware of patient's prior history of suicide attempts alcohol abuse and cardiac history. Time Spent With Patient Time: Total time managing care of this patient today ____ minutes.
--- NOTE | 2023-07-12 19:22 | PC.NURSE ---
communicated with md throughout afternoon patients restless anxious, showing signs of withdrawl, phenobarb po ordered and given, no effect, patient became diaphoretic 1400, fluids, , potassium, albumin administered as ordered, still effect,m notified ordered ativan , administered, assessed patient after one half hour still restless diaphoretic, reported to md, ordered morphine, waited half hour 45 min, still very diaphoretic, anxious, Tried to get another IV on patient to have mu;tiple places of access, while doing so patient lost only access in the R forearm. Patient then complaining of being incontionent of bowel, wanting to go to the bathroom. Patient then [id number] to become very cold and color changing. First called rapid repsonse at 1650 while waiting for others to arrive patient became pulseless and code blue was called. Multiple personall arrived and compression were started. IO's were placed i bilateral shins and epinepherine admisnisted x4. Patient intubated but remained pulseless. tod 1716
--- NOTE | 2023-07-12 20:54 | P.EN_ITS ---
Event Note Date of Service: 07/12/23 Event Note: Call placed to medical housekeeper office who have accepted the case. Requesting all lines be left in place. Case [id number]. Nursing offset plate preparation supervisor notified Time Spent With Patient Time: Total time managing care of this patient today ____ minutes.
--- NOTE | 2023-07-12 20:54 | PM.EVENT ---
Event Note Date of Service: 07/12/23 Event Note: Call placed to director medical science office who have accepted the case. Requesting all lines be left in place. Case [id number]. Nursing cafeteria supervisor notified Time Spent With Patient Time: Total time managing care of this patient today ____ minutes.
--- NOTE | 2023-07-13 00:36 | CONS_ITS ---
DATE OF SERVICE: 07/12/2023 REFERRING PHYSICIAN: Soren Dave MD REASON FOR CONSULTATION: Black stools. HISTORY OF PRESENT ILLNESS: The patient is a pleasant is 67-year-old man who was admitted to the hospital yesterday with complaints of overdose on BuSpar. He has a history of alcohol abuse and reports drinking heavily over the past 2 weeks. Associated with this, he has had some black stools at home and reports 1 episode of coffee-ground emesis at home. He denies a prior history of peptic ulcer disease or NSAID use except for an 81 mg aspirin on a daily basis. He has never had endoscopy. In the emergency department, he was evaluated with laboratory studies, which documented a hematocrit of 51.4, which was up 10 points from 40.1 one week prior. He was given IV hydration and his hematocrit has been stable at 43 since with no reported GI bleeding or hematemesis in the hospital. As part of his evaluation, he underwent imaging with abdomen and pelvic CT scan, which is reviewed. This is interpreted as showing intraluminal contrast accumulation in the cecum, suspicious for active GI bleed. There was also equivocal mild rectal wall thickening without associated perirectal fat stranding. Diverticulosis was noted and no inflammatory changes were seen. The patient has had no bright red blood per rectum or burgundy stools since admission. He does describe undergoing colonoscopy and records reviewed here show a small tubular adenoma was removed in 2013. PAST MEDICAL HISTORY: 1. Coronary artery disease with history of coronary artery bypass grafting in [place] 4 months ago. 2. Hypertension. 3. Alcohol abuse. 4. Depression. 5. Colon polyps. 6. AVR at the time of CABG. CURRENT MEDICATIONS: Current medication list is reviewed in the chart. ALLERGIES: THERE ARE NONE REPORTED. FAMILY HISTORY: This is reviewed with the patient and is noncontributory. SOCIAL HISTORY: Alcohol use is as noted above. He does smoke. REVIEW OF SYSTEMS: SKIN: No pruritus. HEENT: Negative. CARDIOPULMONARY: No shortness of breath or productive sputum. He does report some chest pain. GASTROINTESTINAL: As above. GENITOURINARY: Negative. NEUROPSYCHIATRIC: Negative. PHYSICAL EXAMINATION: GENERAL: Shows a pleasant male, lying comfortably in bed. VITAL SIGNS: Reviewed in the electronic medical record and are stable. SKIN: Anicteric. HEENT: Shows no scleral icterus. NECK: Without lymphadenopathy. LUNGS: Clear. HEART: Shows a regular rate and rhythm. S1, S2. No murmur. ABDOMEN: Soft without focal masses or tenderness. Bowel sounds are present. No organomegaly is noted. EXTREMITIES: Without edema. LABORATORY DATA: Remarkable for a white blood cell count of 11.2, hematocrit 42.9. Imaging studies and remaining labs are reviewed. IMPRESSION: Black stools. At this time, he shows no evidence of active gastrointestinal bleeding. His hematocrit has remained stable and he is being treated with Protonix. He likely has underlying gastritis related to his alcohol use. At this time, I do not think he needs endoscopy as this would be unlikely to change his clinical course. If he does show signs of active bleeding, this can always be arranged in hospital. He should have followup elective colonoscopy at some point because of his history of colon polyps. Thanks for asking me to see him. I will follow him in the hospital with you. MD JUANCHO Rodas/MATTHEW / [id number]
--- NOTE | 2023-07-13 03:06 | W.ED.CONS.HO ---
Consult Details Consult Details: 07/12/2023 has 17:00, code blue was called. -whenever arrived to the patient's room, CPR was in progress, Dr. Gentile and Dr. Guzman, both at bedside directing CPR -I intubated the patient, patient did not receive any sedation, 7 ETT tube, good color change, good breath sounds bilaterally, oxygen saturation improved to the high 90s while CPR was in progress -unfortunately, after several rounds of CPR, patient
--- NOTE | 2023-07-21 18:26 | PM.DDS ---
Discharge Sum: Prov Provider Primary care physician: None Physician Consults: 07/11/23 12:19 Consult to Cardiology Routine Consulting Provider: [facility] [place] [facility] Reason for consultation: abnormal ekg /prolong Qtc Has provider been notified: No Consult to Cardiology Routine Consulting Provider: [facility] [place] [facility] Reason for consultation: prolonged ekg, elevated trops, ekg changes 07/11/23 12:23 Consult for Sitter Routine Reason for consultation: SI, overdose Consult to Psychiatry Routine Consulting Provider: Psych Covering Reason for consultation: buspar OD 07/11/23 22:09 Consult to Gastroenterology Routine Consulting Provider: Patricio Gold Reason for consultation: GI bleed Discharge Sum: Diag Contributing Factors (1) NSTEMI (non-ST elevated myocardial infarction): Discharge Sum: Summary Date and Time Date of admission: 07/11/23 12:18 Summary Details: For date of service 2023 67 year old male with history of cad s/p cabg x4 four months ago in [place], htn, hld, alcohol use disorder, MDD admitted to intermediate care unit after intentional BuSpar overdose, and was noted to have qtc prolongation elevated troponins and alcohol withdrawal, patient was diagnosed to have non ST elevation SC, his EKG showed T-wave inversions in lead 1 and aVL, troponin trended down ,echo showed EF of 38% with evidence of wall motion abnormality and bioprosthetic aortic valve was functioning abnormally, patient presented with GI bleed with hematemesis and multiple episodes of black stools and CT abdomen and pelvis was positive for blood in cecum therefore IV heparin was held, patient was seen by supervisor furnace process, case was discussed with interventional Cardiology at [facility] for possible cardiac catheterization but due to ongoing issues with GI bleed, prolonged QT prolongation and ongoing alcohol withdrawal symptoms emergent catheterization was declined, beta-blockers were held due to prolonged QT and use of cocaine since any bradycardia would further prolong the QT and lead to ventricular arrhythmias , patient was also noted to be hypotensive,he was managed conservatively with IV fluids, IV albumin, phenobarb, IV magnesium, IV Ativan,iv morphine patient remained restless diaphoretic ,nitrates were added once blood pressure improved, at 16:57 on 07/11 code blue was called patient was noted to be pulseless, after 20 minutes of resuscitation, patient noted to have no pulse and code was called off . Patient's brother Azar Lee was notified of patient's passing. Cause of Cardiac arrest Non ST-elevation SC Acute GI bleed Acute alcohol withdrawal Depression with intentional BuSpar overdose Cocaine use disorder Additional Data Attending physician: Lilly Gentile MD
== END 2023-07-12 17:13 | disposition expired | DRG 917 ==
LOC: HO.ED 12:11 → HO.EDOVER 12:28 → HO.IMC 19:41
PROVIDERS: Student in an Organized Health Care Education/Training Program; Admitting Provider Physician Assistant; Emergency Provider Emergency Medicine; Visit Provider Hospitalist
DX: T43.592A Poisoning by other antipsychotics and neuroleptics, intentional self-harm, initial encounter (principal); I21.A1 Myocardial infarction type 2; K29.21 Alcoholic gastritis with bleeding; Z59.01 Sheltered homelessness; F10.239 Alcohol dependence with withdrawal, unspecified; F33.9 Major depressive disorder, recurrent, unspecified; I46.9 Cardiac arrest, cause unspecified; I25.10 Atherosclerotic heart disease of native coronary artery without angina pectoris; R94.31 Abnormal electrocardiogram [ECG] [EKG]; F17.210 Nicotine dependence, cigarettes, uncomplicated; Z95.2 Presence of prosthetic heart valve; Z95.1 Presence of aortocoronary bypass graft; Z71.6 Tobacco abuse counseling; Z79.82 Long term (current) use of aspirin; Z79.899 Other long term (current) drug therapy
CPT/HCPCS: 36415; 71045; 74178; 80048; 80053; 80076; 80143; 80179; 80307; 81001; 82550; 82803; 82947; 83605; 83735; 84484; 85025; 85027; 85610; 92950; 93005; 93306; 94799; 99285; C9113; J0171; J2060; J2270; J2560; J3411; J3475; J3480; P9047; Q9957; Q9967

== ENCOUNTER → 2023-07-11 07:33 | Outpatient (BNV) | payer MEDICARE, SELFPAY | PROVIDERS: Admitting Provider Physician Assistant; Emergency Provider Emergency Medicine; Visit Provider Internal Medicine | DX: I45.81 Long QT syndrome (principal); R94.31 Abnormal electrocardiogram [ECG] [EKG]; I44.4 Left anterior fascicular block | CPT/HCPCS: 93010 ==

== ENCOUNTER 2023-07-11 12:18 | Outpatient (BNV) | payer MEDICARE, MEDICAID, SELFPAY | END 2023-07-12 07:00 | PROVIDERS: Admitting Provider Physician Assistant; Emergency Provider Emergency Medicine; Visit Provider Internal Medicine | DX: R94.31 Abnormal electrocardiogram [ECG] [EKG] (principal); T82.09XA Other mechanical complication of heart valve prosthesis, initial encounter; I35.1 Nonrheumatic aortic (valve) insufficiency | CPT/HCPCS: 93010; 93306 ==

== ENCOUNTER → 2023-07-11 12:18 | Outpatient (BNV) | payer MEDICARE, MEDICAID, SELFPAY | PROVIDERS: Admitting Provider Physician Assistant; Emergency Provider Emergency Medicine; Visit Provider Internal Medicine | DX: R94.31 Abnormal electrocardiogram [ECG] [EKG] (principal); I21.4 Non-ST elevation (NSTEMI) myocardial infarction; F10.930 Alcohol use, unspecified with withdrawal, uncomplicated; T50.901A Poisoning by unspecified drugs, medicaments and biological substances, accidental (unintentional), initial encounter; F33.9 Major depressive disorder, recurrent, unspecified | CPT/HCPCS: 99223 ==

== ENCOUNTER → 2023-07-11 12:18 | Outpatient (BNV) | payer MEDICARE, SELFPAY | PROVIDERS: Admitting Provider Physician Assistant; Emergency Provider Emergency Medicine; Visit Provider Physician Assistant | DX: I21.4 Non-ST elevation (NSTEMI) myocardial infarction (principal) | CPT/HCPCS: 99223; 99233; 99239; 99499 ==